=== PATIENT | male | born 1955 | race Caucasian/White ===

== ENCOUNTER 2023-01-18 08:35 | Outpatient (AMB) | payer MEDICARE, MEDICAID, SELFPAY ==
--- NOTE | 2023-01-18 08:45 | A.OFFVIS_ITS ---
Intake Vital Signs 01/18/23 08:47 Height 5 ft 10 in Weight 167 lb 8 oz BMI 24.0 BP 130/80 Blood Pressure Location Lt brachial Position Sitting Pulse 53 Pulse Source Pulse Oximeter Pulse Oximetry (%) 98 Oxygen Delivery Method Room Air Intake Visit Reasons: [id number] Intake Note: Patient is here for an Annual Wellness Visit. Patient has concerns to discuss with pcp Registered Dental Assistant Rda Required: No Identity Management Consultant: Identity Management Consultant offered & declined Accompanied by: Self / Same As Patient Allergies Ybemkbr-DVN-EvK Reductase Inhibitor [NKJPDOV-VVI-EIT REDUCTASE INHIBITOR] Allergy (Mild, Verified 01/18/23 08:47) Pain atorvastatin Allergy (Unknown, Verified 01/18/23 08:47) Abdominal Pain rosuvastatin [Crestor] Allergy (Unknown, Verified 01/18/23 08:47) Unknown Medication List - Last Reconciled 01/18/23 by Harrison Tucker MD aspirin 81 mg PO DAILY metoprolol succinate ER 25 mg PO DAILY omeprazole 20 mg PO DAILY HPI [id number] HPI Details HTN and GERD on rx; doing well [facility] Surgical History (Updated 01/18/23 @ 08:53 by VARGAS Zepeda) History of appendectomy History of ear surgery History of neck surgery Family History (Updated 01/18/23 @ 08:54 by VARGAS Zepeda) Other Substance use disorder Social History (Updated 01/18/23 @ 08:53 by VARGAS Zepeda) Alcohol intake: current Alcohol intake frequency: holidays/special occasions only Alcohol type: wine Patient Tobacco Use Status: Former Tobacco user Quit Date: 7 years ago Questionnaire Medicare Wellness Checkup [age] 65-70 What gender do you identify with?: male During the past 4 weeks, how much have you been bothered by emotional problems such as feeling anxious, depressed, irritable, sad or downhearted, and blue?: slightly During the past 4 weeks, has your physical & emotional health limited your social activities with family, friends, neighbors, or groups?: not at all During the past 4 weeks, how much bodily pain have you generally had?: very mild pain During the past 4 weeks, was someone available to help you if you needed & wanted help?: yes, a little During the past 4 weeks, what was the hardest physical activity you could do for at least 2 minutes?: moderate Can you get to places out of walking distance without help? (For eg., can you travel alone on buses, taxis or drive your car?): Yes Can you go shopping for groceries or clothes without someone's help?: Yes Can you prepare your own meals?: Yes Can you do your housework without help?: Yes Because of any health problems, do you need the help of another person with your personal care needs such as eating, bathing, dressing or getting around the ho use?: No Can you handle your own money without help?: Yes During the past 4 weeks, how would you rate your health in general?: good During the past 4 weeks how have things been going for you?: pretty well Are you having difficulties driving your car?: no Do you always fasten your seat belt when you are in a car?: yes, usually During past 4 weeks, have you been bothered by the following: never: Falling or dizzy when standing up, Sexual problems?, Trouble eating well?, Problems using the telephone? and Tiredness or fatigue? and seldom: Teeth or denture problems? Have you fallen 2 or more times in the past year?: No Are you afraid of falling?: No Are you a smoker?: no During the past 4 weeks, how many drinks of wine, beer, or other alcoholic beverages did you have?: 1 drink or less per week Do you exercise for about 20 minutes 3 or more times a week?: yes, some of the time Have you been given information to help with the following?: no: Hazards in your house that might hurt you? and no: Keeping track of your medications? How often do you have trouble taking medicines the way you have been told to take them?: I always take medicine as prescribed How confident are you that you can control & manage most of your health problems?: very confident What is your race?: White Mini Mental State Exam (MMSE) Orientation What is the (year) (season) (date) (day) (month)?: year, season, date, day and month Where are we (state) (county) (town or city) (hospital) (floor)?: state, county, town or city, hospital/clinic and floor Registration Name of 3 unrelated objects clearly and slowly, then ask patient to repeat all 3 of them. (1st repeat determines score. Make sure they can repeat all three): object 1, object 2 and object 3 Attention & Calculation (CHOOSE ONE) Ask pt to begin with 100 & count backward by 7. Stop after 5 repeats. If pt cannot ask them to spell the word WORLD backward.: 79 Recall Ask patient to repeat the 3 items from question #3.: object 1, object 2 and object 3 Score Score: 17 Activity of Daily Living Bathing - sponge bath, tub bath or shower: receives no assistance (gets in/out by self, if usual bathing means Dressing - getting clothes from closets & drawers, including inner/outer garments & fasteners.: gets clothes & gets completely dressed without help Toileting - going to the 'toilet room' for urine/bowel elimination & cleaning self/arranging clothes: goes to toilet room, cleans self, arranges clothes without help Transfer: moves in & out of bed and chair without help (may use support object) Continence: controls urination/bowel movements completely by self Feeding: feeds self without help Total Score: 0 Information obtained from: patient Using telephone: independent Traveling: independent Shopping: independent Preparing meals: independent Housework: independent Taking medicine: independent Managing money: independent PHQ-9 Over the last 2 weeks, how often have you been bothered by any of the following problems? 1. Little interest or pleasure in doing things: not at all 2. Feeling down, depressed, or hopeless: several days 3. Trouble falling or staying asleep, or sleeping too much: not at all 4. Feeling tired or having little energy: not at all 5. Poor appetite or overeating: not at all 6. Feeling bad about yourself - or that you are a failure or have let yourself or your family down: not at all 7. Trouble concentrating on things, such as reading the newspaper or watching television: not at all 8. Moving or speaking so slowly that other people could have noticed. Or the opposite - being so fidgety or restless that you have been moving around a lot more than usual: not at all 9. Thoughts that you would be better off or of hurting yourself in some way: not at all Total score: 1 Depression Screening Interpretation: Negative 36789 - PHQ-9 Billing: Yes Source: Developed by Drs. Mark Castaneda, Monica Morrissey, Wong Valverde and colleagues, with an educational john from [email or web address]. Thrive Questionnaire Date Thrive assessed: 01/18/23 I am a: Patient What is your living situation today?: I have a steady place to live Within the past 12 months, did the food you bought not last and you didn't have the money to get more?: Never true Within the past 12 months, did you worry whether your food would run out before you got money to buy more?: Never true Do you have trouble paying for medicines?: No Do you have trouble getting transportation to medical appointments?: No Do you have trouble paying your heating and electricity bill?: No Do you have trouble taking care of your child, family member or friend?: No Do you have trouble with day-to-day activities such as bathing, preparing meals, shopping, managing finances, etc.?: No Are you currently unemployed and looking for a job?: No Are you interested in more education?: No RODRIGUE-7 AMB Questionnaire RODRIGUE-7 Date RODRIGUE - 7 assessed: 01/18/23 Feeling nervous, anxious, or on edge: 0 = Not at all Not being able to stop or control worryin = Not at all Worrying too much about different things: 0 = Not at all Trouble relaxin = Not at all Being so restless that it is hard to sit still: 0 = Not at all Becoming easily annoyed or irritable: 0 = Not at all Feeling afraid as if something awful might happen: 0 = Not at all Total RODRIGUE-7 score (0-4 normal; 5-9 mild; 10-14 moderate; 15-21 severe): 0 Source: Developed by Drs. Mark Castaneda, Monica Morrissey, Wong Valverde and colleagues, with an educational john from [email or web address]. RODRIGUE-7 Assessment Billing RODRIGUE-7 Assessment Tool: RODRIGUE-7 Assessment 64602 Review of Systems Const Denies chills, Denies fatigue, Denies headache(s) and Denies weight loss Eyes Denies change in vision, Denies diplopia and Denies eye pain ENT Reports Normal hearing present, Denies vertigo, Denies dizziness, Denies headache(s) and Denies nasal discharge Card Denies chest pain, Denies rapid heart rate and Denies dyspnea on exertion Resp Denies chest congestion, Denies cough, Denies pain with cough and Denies dyspnea on exertion GI Denies abdominal pain, Denies hematochezia and Denies change in bowel habits Musc Denies myalgias, Denies arthralgias and Denies joint swelling Skin/Breast Denies lesions and Denies unusual bruising Neuro Reports Normal hearing present, Denies vertigo, Denies dizziness, Denies headache(s) and Denies focal weakness Endo Denies fatigue Physical Exam Vital Signs: Last Vital Signs Pulse 53 01/18/23 08:47 BP 130/80 01/18/23 08:47 Pulse Ox 98 01/18/23 08:47 Oxygen Delivery Method Room Air 01/18/23 08:47 BMI result Body Mass Index 24.0 Neuro Cranial nerves: Yes Normal hearing present Assessment & Plan Assessment & Plan (1) Encounter for initial annual wellness visit (AWV) in Medicare patient: Code(s): Z00.00 - Encounter for general adult medical examination without abnormal findings Plan: zenaida escalera (2) Hypertension: Code(s): I10 - Essential (primary) hypertension Plan: stable; same rx (3) Chronic GERD: Code(s): K21.9 - Gastro-esophageal reflux disease without esophagitis Plan: stable; same rx Orders: Orders Comprehensive Shepherd. 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
[2023-01-18 08:47] VITALS: BP 130/80; PULSE 53; O2SAT 98; BMI 24.0
== END 2023-01-18 09:29 | disposition home or self-care (01) ==
PROVIDERS: PCP Internal Medicine; Visit Provider Internal Medicine
DX: Z00.00 Encounter for general adult medical examination without abnormal findings (principal); I10 Essential (primary) hypertension; K21.9 Gastro-esophageal reflux disease without esophagitis
CPT/HCPCS: 1123F; G0438

== ENCOUNTER 2023-01-18 09:35 | Outpatient (REF) | payer MEDICARE, MEDICAID, SELFPAY ==
[2023-01-18 09:56] LABS: MANUAL DIFF FLAG NO
[2023-01-18 11:00] LABS: Basophils Absolute Auto 0.1 X10*3/uL (0.0-0.2); Basophils Percent Auto 1.2 % (0-2); Eosinophils Absolute Auto 0.3 X10*3/uL (0.0-0.4); Eosinophils Percent Auto 4.2 % (0-4); Hematocrit 42.4 % (42.0-52.0); Hemoglobin 14.1 g/dl (14.0-18.0); Imm Gran Abs Auto 0.01 X10*3/uL (0.00-0.03); Imm Gran Pct Auto 0.1 % (0.0-0.4); Lymphocytes Absolute Auto 1.9 X10*3/uL (1.2-4.9); Lymphocytes Percent Auto 28.9 % (20-40); Mean Corpuscular HGB Conc 33.3 g/dl (31.0-36.0); Mean Corpuscular Hemoglobin 29.5 pg (27.0-33.0); Mean Corpuscular Volume 88.7 fL (80.0-98.0); Monocytes Absolute Auto 0.6 X10*3/uL (0.1-1.2); Monocytes Percent Auto 8.7 % (2-11); Neutrophils Absolute Auto 3.8 x10*3/uL (2.0-8.3); Neutrophils Percent Auto 56.9 % (45-73); Platelet Count 273 X10*3/uL (160-400); Red Blood Count 4.78 X10*6/uL (4.60-5.80); Red Cell Distribution Width 12.4 % (11.0-16.0); White Blood Count 6.7 X10*3/uL (4.8-10.8)
[2023-01-18 11:12] LABS: Alanine Aminotransferase 17 U/L (0-40); Albumin Level 4.2 g/dL (3.5-5.0); Alkaline Phosphatase 51 U/L (39-117); Anion Gap 16 (12-20); Aspartate Amino Transferase 14 U/L (5-37); Blood Urea Nitrogen 18 mg/dL (9-16); Calcium 9.2 mg/dL (8.4-10.2); Carbon Dioxide 22 mmol/L (22-29); Chloride 111 mmol/L (96-108); Cholesterol 167 mg/dL; Estimated Glomerular Filt Rate > 60; Glucose Fasting 114 mg/dL (60-99); HDL Cholesterol 47 mg/dL; LDL Cholesterol Calculated 104 mg/dl; Sodium 145 mmol/L (135-145); Triglycerides 80 mg/dL
[2023-01-18 11:17] LABS: Thyroid Stimulating Hormone 1.81 uIU/mL (0.32-4.0)
[2023-01-18 11:19] LABS: Prostate Specific Antigen Scr 0.83 ng/mL (<0.05-4.0)
== END 2023-01-18 09:36 | disposition home or self-care (01) ==
LOC: HO.LAB 09:35
PROVIDERS: PCP Internal Medicine; Visit Provider Internal Medicine
DX: Z00.00 Encounter for general adult medical examination without abnormal findings (principal); Z12.5 Encounter for screening for malignant neoplasm of prostate; N28.9 Disorder of kidney and ureter, unspecified; E03.9 Hypothyroidism, unspecified; E78.5 Hyperlipidemia, unspecified; D64.9 Anemia, unspecified
CPT/HCPCS: 36415; 80053; 80061; 84153; 84443; 85025

== ENCOUNTER 2023-07-04 10:38 | Outpatient (AMB) | payer MEDICARE, MEDICAID, SELFPAY ==
[2023-07-04 10:42] VITALS: BP 102/66; PULSE 53; O2SAT 98; BMI 24.2
--- NOTE | 2023-07-04 10:42 | MHC.PC.OV ---
Vital Signs 07/04/23 10:42 Height 5 ft 10 in Weight 168 lb 8 oz BMI 24.2 BP 102/66 Blood Pressure Location Lt brachial Position Sitting Pulse 53 Pulse Source Pulse Oximeter Pulse Oximetry (%) 98 Oxygen Delivery Method Room Air Intake Visit Reasons: pre-op cataract suergery Balin eye [employer] Systems Auditor Required: No Road Design Draftsperson: Not Required per policy Accompanied by: Self / Same As Patient Allergies Zljhmco-DSN-AwG Reductase Inhibitor [EWXVQKZ-NYN-AYS REDUCTASE INHIBITOR] Allergy (Mild, Verified 07/04/23 10:42) Pain atorvastatin Allergy (Unknown, Verified 07/04/23 10:42) Abdominal Pain rosuvastatin [Crestor] Allergy (Unknown, Verified 07/04/23 10:42) Unknown Medication List - Last Reconciled 07/04/23 by Harrison Tucker MD alirocumab (Praluent Pen) mg subcut Q2W aspirin 81 mg PO DAILY metoprolol succinate ER 25 mg PO DAILY omeprazole 20 mg PO DAILY Tobacco use date assessed: 07/04/23 Fall risk assessment: No Falls in past year Last assessed Fall Risk: 07/04/23 Dental Screening Dental Screen Date: 07/04/23 Did you have a dental visit in the last 12 months?: No Did you have a dental problem in the last 6 months where you did not have access to dental care?: No Was dental information given to patient?: Patient has dentist HPI pre-op cataract suergery Balin eye NOABEL HPI Details Having bilat cataracts repaired; stable CAD w/o chest pain in over a year [facility] Surgical History (Updated 01/18/23 @ 08:53 by VARGAS Zepeda) History of ear surgery History of neck surgery History of appendectomy Family History Other Substance use disorder Social History Housing: Condominium Alcohol intake: current Alcohol intake frequency: holidays/special occasions only Alcohol type: wine Patient Tobacco Use Status: Former Tobacco user Quit Date: 7 years ago e-Cigarette/Vaping Use: Never Used Second Hand Smoke Exposure: No service: No Current occupational status: employed Cognitive needs: No Hearing needs: No Vision needs: Yes Questionnaire PHQ-9 Over the last 2 weeks, how often have you been bothered by any of the following problems? 1. Little interest or pleasure in doing things: not at all 2. Feeling down, depressed, or hopeless: several days 3. Trouble falling or staying asleep, or sleeping too much: not at all 4. Feeling tired or having little energy: not at all 5. Poor appetite or overeating: not at all 6. Feeling bad about yourself - or that you are a failure or have let yourself or your family down: not at all 7. Trouble concentrating on things, such as reading the newspaper or watching television: not at all 8. Moving or speaking so slowly that other people could have noticed. Or the opposite - being so fidgety or restless that you have been moving around a lot more than usual: not at all 9. Thoughts that you would be better off or of hurting yourself in some way: not at all Total score: 1 Depression Screening Interpretation: Negative Depression Screening Done: Yes 88321 - PHQ-9 Billing: Yes Source: Developed by Drs. Mark Castaneda, Monica Morrissey, Wong Valverde and colleagues, with an educational john from [employer]. Thrive Questionnaire Date Thrive assessed: 07/04/23 I am a: Patient What is your living situation today?: I have a steady place to live Within the past 12 months, did the food you bought not last and you didn't have the money to get more?: Never true Within the past 12 months, did you worry whether your food would run out before you got money to buy more?: Never true Do you have trouble paying for medicines?: No Do you have trouble getting transportation to medical appointments?: No Do you have trouble paying your heating and electricity bill?: No Do you have trouble taking care of your child, family member or friend?: No Do you have trouble with day-to-day activities such as bathing, preparing meals, shopping, managing finances, etc.?: No Are you currently unemployed and looking for a job?: No Are you interested in more education?: No Please select the resources that you would like help with: None AUDIT C Alcohol Use Questionnaire (AUDIT-C) 1. How often do you have a drink containing alcohol?: Never Total Score: 0 RODRIGUE-7 AMB Questionnaire RODRIGUE-7 Date RODRIGUE - 7 assessed: 07/04/23 Feeling nervous, anxious, or on edge: 0 = Not at all Not being able to stop or control worryin = Not at all Worrying too much about different things: 0 = Not at all Trouble relaxin = Not at all Being so restless that it is hard to sit still: 0 = Not at all Becoming easily annoyed or irritable: 0 = Not at all Feeling afraid as if something awful might happen: 0 = Not at all Total RODRIGUE-7 score (0-4 normal; 5-9 mild; 10-14 moderate; 15-21 severe): 0 Source: Developed by Drs. Mark Castaneda, Monica Morrissey, Wong Valverde and colleagues, with an educational john from [employer]. Review of Systems Const Denies chills, Denies fatigue, Denies headache(s) and Denies weight loss Eyes Denies change in vision, Denies diplopia and Denies eye pain ENT Denies vertigo, Denies dizziness, Denies headache(s) and Denies nasal discharge Card Denies chest pain, Denies rapid heart rate and Denies dyspnea on exertion Resp Denies chest congestion, Denies cough, Denies pain with cough and Denies dyspnea on exertion GI Denies abdominal pain, Denies hematochezia and Denies change in bowel habits Musc Denies myalgias, Denies arthralgias and Denies joint swelling Skin/Breast Denies lesions and Denies unusual bruising Neuro Denies vertigo, Denies dizziness, Denies headache(s) and Denies focal weakness Endo Denies fatigue Physical exam (Primary Care) Vital Signs: Last Vital Signs Pulse 53 07/04/23 10:42 BP 102/66 07/04/23 10:42 Pulse Ox 98 07/04/23 10:42 Oxygen Delivery Method Room Air 07/04/23 10:42 BMI result Body Mass Index 24.2 Tobacco/Smoking Status: Tobacco use Status Tobacco use date assessed 07/04/23 07/04/23 10:44 Patient Tobacco Use Status Former Tobacco user 07/04/23 10:44 PHQ-9: PHQ-9 Score PHQ-9: Total score 1 07/04/23 10:44 Depression Screening Interpretation: Negative Thrive Assessment: Date of Thrive Assessment Date Thrive assessed 07/04/23 07/04/23 10:44 Const General: cooperative, healthy appearing and no acute distress Orientation/consciousness: oriented to person, oriented to place and oriented to time HENMT Head: Yes normal to inspection, Yes normocephalic and Yes atraumatic Mouth: Normal oral and palatal mucosa present and tongue normal Throat: Yes posterior oropharynx normal and Yes uvula midline Eyes General: appearance normal, both eyes and all related structures Neck Neck: Yes normal visual inspection, Yes full ROM and Yes no lymphadenopathy Thyroid: Thyroid normal Carotids: normal carotid upstroke Chest Chest palpation & inspection: normal inspection of the chest Resp Effort & Inspection: normal respiratory effort and able to speak in complete sentences Auscultation: clear to auscultation bilaterally Cardio Jugular venous distension: no JVD Palpation: normal PMI Rate: regular rate Rhythm: regular rhythm Heart sounds: S1 normal heart sound present and S2 normal heart sound present GI Inspection: Yes normal to inspection Palpation (GI): Soft to palpation and No hepatosplenomegaly present Auscultation: normal bowel sounds General: Yes no CVA tenderness Back/Spine/Pelvis Back: no CVA tenderness Skin General skin exam: no rashes or lesions noted Neuro General: oriented to person, oriented to place and oriented to time Extrem General: Yes normal to inspection and Yes full ROM Assessment and Plan Assessment & Plan (1) Preop exam for internal medicine: Code(s): Z01.818 - Encounter for other preprocedural examination Plan: low risk for cardiovascular complications; cleared for surgery (2) Coronary artery disease: Code(s): I25.10 - Atherosclerotic heart disease of lime coronary artery without angina pectoris Plan: stable Coding Level of Care Code Est Pt Level 4 (09424) Diagnoses Preop exam for internal medicine Z01.818 Coronary artery disease I25.10
== END 2023-07-04 11:02 | disposition home or self-care (01) ==
PROVIDERS: PCP Internal Medicine; Visit Provider Internal Medicine
DX: Z01.818 Encounter for other preprocedural examination (principal); I25.10 Atherosclerotic heart disease of native coronary artery without angina pectoris
CPT/HCPCS: 99214

== ENCOUNTER 2024-01-23 09:17 | Outpatient (REF) | payer MEDICARE, MEDICAID, SELFPAY ==
[2024-01-23 09:45] LABS: MANUAL DIFF FLAG NO
[2024-01-23 10:05] LABS: Basophils Absolute Auto 0.1 X10*3/uL (0.0-0.2); Basophils Percent Auto 1.2 % (0-2); Eosinophils Absolute Auto 0.3 X10*3/uL (0.0-0.4); Eosinophils Percent Auto 4.5 % (0-4); Hematocrit 42.2 % (42.0-52.0); Hemoglobin 14.5 g/dl (14.0-18.0); Imm Gran Abs Auto 0.04 X10*3/uL (0.00-0.03); Imm Gran Pct Auto 0.6 % (0.0-0.4); Lymphocytes Absolute Auto 1.9 X10*3/uL (1.2-4.9); Lymphocytes Percent Auto 28.1 % (20-40); Mean Corpuscular HGB Conc 34.4 g/dl (31.0-36.0); Mean Corpuscular Volume 87.2 fL (80.0-98.0); Mean Platelet Volume 9.5 fL (9.4-12.4); Monocytes Absolute Auto 0.7 X10*3/uL (0.1-1.2); Monocytes Percent Auto 10.6 % (2-11); Neutrophils Absolute Auto 3.8 x10*3/uL (2.0-8.3); Platelet Count 265 X10*3/uL (160-400); Red Blood Count 4.84 X10*6/uL (4.60-5.80); Red Cell Distribution Width 12.7 % (11.0-16.0); White Blood Count 6.9 X10*3/uL (4.8-10.8)
[2024-01-23 10:44] LABS: Alanine Aminotransferase 21 U/L (0-40); Albumin Level 4.4 g/dL (3.5-5.0); Alkaline Phosphatase 52 U/L (39-117); Anion Gap 12 (12-20); Aspartate Amino Transferase 15 U/L (5-37); Bilirubin Total 0.7 mg/dL (0.0-1.0); Blood Urea Nitrogen 18 mg/dL (9-16); Calcium 9.2 mg/dL (8.4-10.2); Carbon Dioxide 28 mmol/L (22-29); Chloride 107 mmol/L (96-108); Cholesterol 203 mg/dL (<200); Estimated Glomerular Filt Rate > 60; Glucose Fasting 116 mg/dL (60-99); HDL Cholesterol 52 mg/dL (>40); LDL Cholesterol Calculated 125 mg/dL (<100); Potassium 4.7 mmol/L (3.3-5.1); Sodium 142 mmol/L (135-145); Total Protein 7.3 g/dL (6.5-8.0); Triglycerides 130 mg/dL (<150)
[2024-01-23 11:05] LABS: Thyroid Stimulating Hormone 1.75 uIU/mL (0.32-4.0)
== END 2024-01-23 09:18 | disposition home or self-care (01) ==
LOC: HO.LAB 09:17
PROVIDERS: PCP Internal Medicine; Visit Provider Internal Medicine
DX: Z13.220 Encounter for screening for lipoid disorders (principal); Z13.29 Encounter for screening for other suspected endocrine disorder; Z13.0 Encounter for screening for diseases of the blood and blood-forming organs and certain disorders involving the immune mechanism; Z13.9 Encounter for screening, unspecified
CPT/HCPCS: 36415; 80053; 80061; 84443; 85025

== ENCOUNTER 2024-05-11 13:04 | Outpatient (AMB) | payer MEDICARE, MEDICAID, SELFPAY ==
--- NOTE | 2024-05-11 13:13 | A.OFFPC_ITS ---
Vital Signs 05/11/24 13:14 Height 5 ft 10 in Weight 174 lb 8 oz BMI 25.0 BP 140/90 H Blood Pressure Location Lt brachial Position Sitting Pulse 67 Pulse Source Pulse Oximeter Pulse Oximetry (%) 98 Oxygen Delivery Method Room Air Intake Visit Reasons: Coughing up blood clogs Intake Note: Patient is here to follow up on Coughing up blood clots. Receptionist Clerk Required: No Melting Operator: Not Required per policy Accompanied by: Self / Same As Patient Allergies W[place]ivhu-KDD-HgQ Reductase Inhibitor [NGKCQSQ-QRC-NKI REDUCTASE INHIBITOR] Allergy (Mild, Verified 05/11/24 13:14) Pain atorvastatin Allergy (Unknown, Verified 05/11/24 13:14) Abdominal Pain rosuvastatin [Crestor] Allergy (Unknown, Verified 05/11/24 13:14) Unknown Medication List - Last Reconciled 05/11/24 by Harrison Tucker MD aspirin 81 mg PO DAILY metoprolol succinate ER 25 mg PO DAILY omeprazole 20 mg PO DAILY Tobacco use date assessed: 05/11/24 Fall risk assessment: No Falls in past year Last assessed Fall Risk: 05/11/24 Dental Screening Dental Screen Date: 07/04/23 HPI Coughing up blood clogs HPI Details hemoptysis for a week PFSH Surgical History History of cataract surgery History of ear surgery History of neck surgery History of appendectomy Family History Other Substance use disorder Social History Housing: Condominium Alcohol intake: current Alcohol intake frequency: holidays/special occasions only Alcohol type: wine Patient Tobacco Use Status: Former Tobacco user e-Cigarette/Vaping Use: Never Used Second Hand Smoke Exposure: No service: No Current occupational status: employed Cognitive needs: No Hearing needs: No Vision needs: Yes Questionnaire Thrive Questionnaire Date Thrive assessed: 07/04/23 AUDIT C Alcohol Use Questionnaire (AUDIT-C) 2. How many drinks containing alcohol do you have on a typical day when you are drinking?: 1 or 2 3. How often do you have six or more drinks on one occasion?: Less than monthly Total Score: 1 RODRIGUE-7 AMB Questionnaire RODRIGUE-7 Date RODRIGUE - 7 assessed: 07/04/23 Source: Developed by Drs. Mark Castaneda, Monica Morrissey, Wong Valverde and colleagues, with an educational john from [employer]. Review of Systems Const Denies chills, Denies headache(s) and Denies weight loss ENT Denies headache(s) Card Denies chest pain, Denies syncope, Denies irregular heart rhythm and Denies dyspnea Resp Denies chest congestion, Denies cough and Denies dyspnea GI Denies abdominal pain, Denies change in stool character, Denies nausea and Denies vomiting Musc Denies deformity and Denies joint swelling Neuro Denies syncope and Denies headache(s) Physical exam (Primary Care) Vital Signs: Last Vital Signs Pulse 67 05/11/24 13:14 BP 140/90 H 05/11/24 13:14 Pulse Ox 98 05/11/24 13:14 Oxygen Delivery Method Room Air 05/11/24 13:14 BMI result Body Mass Index 25.0 Tobacco/Smoking Status: Tobacco use Status Tobacco use date assessed 05/11/24 05/11/24 13:18 Patient Tobacco Use Status Former Tobacco user 05/11/24 13:18 e-Cigarette/Vaping Use Never Used 05/11/24 13:18 Thrive Assessment: Date of Thrive Assessment Date Thrive assessed 07/04/23 05/11/24 13:18 Const General: cooperative, comfortable, no acute distress and alert Neck Neck: Yes no lymphadenopathy Thyroid: Thyroid normal Resp Effort & Inspection: normal respiratory effort Auscultation: clear to auscultation bilaterally Percussion: percussion normal Cardio Jugular venous distension: no JVD Palpation: normal PMI Rate: regular rate Rhythm: regular rhythm Heart sounds: S1 normal heart sound present and S2 normal heart sound present GI Inspection: Yes normal to inspection Palpation (GI): No hepatosplenomegaly present Skin General skin exam: no rashes or lesions noted Extrem General: Yes no clubbing, cyanosis or edema Coding Level of Care Code Est Pt Level 3 (42289) Diagnoses Hemoptysis R04.2 Assessment & Plan Assessment & Plan (1) Hemoptysis: Code(s): R04.2 - Hemoptysis Category: Medical Plan: xr and rx Orders: Orders XR chest 2V Today R04.2 - Hemoptysis Medications: New azithromycin take 500 mg today (day 1), then 250 mg for 4 days (days 2-5) PO 6 tabs 0RF sildenafil (Viagra) administer 30 minutes to 4 hours before activity 50 mg PO DAILY PRN 10 tabs 3RF sexual activity
[2024-05-11 13:14] VITALS: BP 140/90; PULSE 67; O2SAT 98; BMI 25.0
== END 2024-05-11 13:30 | disposition home or self-care (01) ==
PROVIDERS: PCP Internal Medicine; Visit Provider Internal Medicine
DX: R04.2 Hemoptysis (principal)

== ENCOUNTER 2024-05-11 13:04 | Outpatient (REF) | payer MEDICARE, MEDICAID, SELFPAY ==
--- NOTE | ~2024-05-11 | XR_ITS ---
EXAMINATION: XR CHEST CLINICAL INFORMATION: R04.2 - Hemoptysis COMPARISON: None available. TECHNIQUE: 2 views of the chest were obtained. FINDINGS: No significant abnormality is noted involving the heart, lungs, mediastinum, bony thorax or soft tissues. Postsurgical changes are noted in the lower cervical spine. XR/XR chest 2V IMPRESSION: No acute cardiopulmonary disease. Electronically signed by: Fabiano Ribera MD 05/13/2024 12:05 PM [facility]
== END 2024-05-11 13:05 | disposition home or self-care (01) ==
LOC: HO.XRAY 13:04
PROVIDERS: PCP Internal Medicine; Visit Provider Internal Medicine
DX: R04.2 Hemoptysis (principal)
CPT/HCPCS: 71046; 99212

== ENCOUNTER 2024-06-05 07:40 | Outpatient (REF) | payer MEDICARE, MEDICAID, SELFPAY ==
--- NOTE | ~2024-06-05 | US_ITS ---
EXAMINATION: US RETROPERITONEAL LIMITED (AORTA) CLINICAL INFORMATION: Abdominal aortic aneurysm last imaged in 2016. COMPARISON: 09/02/2015 ultrasound abdominal aorta. TECHNIQUE: Cash-scale, color Doppler and spectral Doppler evaluation of the abdominal aorta. Limited visualization of the most superior and inferior thoracic vertebral bodies on the lateral view due to overlying bone and soft tissue structures. FINDINGS: Atherosclerosis. The measurements of the aorta in maximum AP and transverse dimensions respectively are as follows: Proximal: 2.4 x 2.5 cm, previously 2.8 x 2.7 cm. Mid: 2.6 x 2.8 cm, previously 2.8 x 2.9 cm. Distal: 6.4 x 6.2 cm, previously 3.3 x 3.7 cm. PSV: 41.8 cm/s. The measurements of the common iliac arteries in maximum dimensions are as follows: Right: AP: 0.7 cm. TRV: 0.8 cm. Left: AP: 0.8 cm. TRV: 0.9 cm. Aneurysm of the distal abdominal aorta measures 6.4 cm AP x 6.2 cm transverse with lumen measuring 2.6 cm AP x 2.6 cm transverse. Thick intraluminal thrombus. Distal abdominal aorta measured 3.3 x 3.7 cm on aortic ultrasound of 09/02/2015. US/US abdominal aortic aneurysm IMPRESSION: Aneurysm of the distal abdominal aorta measures 6.4 cm AP x 6.2 cm transverse with lumen measuring 2.6 cm AP x 2.6 cm transverse. Thick intraluminal thrombus. Distal abdominal aorta measured 3.3 x 3.7 cm on aortic ultrasound of 09/02/2015.. This study was presented today, June 05, 2024, for interpretation. Stat results provided at this time as requested by referring provider. Electronically signed by: Payton Potter MD 06/05/2024 10:15 AM EST
== END 2024-06-05 07:41 | disposition home or self-care (01) ==
LOC: HO.US 07:40
PROVIDERS: PCP Internal Medicine; Visit Provider Internal Medicine
DX: I71.40 Abdominal aortic aneurysm, without rupture, unspecified (principal)
CPT/HCPCS: 76706

== ENCOUNTER 2024-08-29 10:09 | Outpatient (REF) | payer MEDICARE, MEDICAID, SELFPAY ==
--- NOTE | ~2024-08-29 | CT_ITS ---
EXAMINATION: CT CHEST WITH CONTRAST CLINICAL INFORMATION: Lung mass. COMPARISON: No prior CT. Correlation made with chest radiograph 05/11/2024. TECHNIQUE: Multidetector volumetric CT imaging of the chest was obtained after the administration of 50 mL of Omnipaque 350 intravenous contrast without immediate adverse reactions. Axial MIP volume rendering provided. Sagittal and coronal reformatted images were obtained. This CT examination was performed using dose optimization techniques as appropriate, variously including the following: *Automated exposure control *Adjustment of mA and/or kV according to patient size (this includes techniques or standardized protocols for targeted exams where dose is matched to indication/reason for exam; i.e. extremities or head) *Use of iterative reconstruction technique FINDINGS: NODULES: -There is a large lobular soft tissue mass in the left lower lobe ventrally measuring approximately 5.5 x 6.6 x 4.1 cm (AP, TRV, CC). This measures Hounsfield units of approximately 28, and extends to abut the inferior major fissure. There are surrounding groundglass parenchymal changes. -There is a 1.2 x 0.4 x 0.2 cm groundglass nodule abutting the minor fissure within the anteroinferior right upper lobe (series 4, image 93). This may be an intrapulmonary lymph node but is nonspecific. -Within the right middle lobe laterally there is a 9 mm pure groundglass nodule (series 4, image 97). -There are no additional pulmonary nodules identified. LUNGS: -There is moderate centrilobular and paraseptal emphysema, with upper lobe predominance. -There is biapical scarring with associated apical bulla. -There is no consolidative opacity. -There is minimal diffuse bronchiectasis without bronchial wall thickening. -There is no pleural effusion or pneumothorax. MEDIASTINUM: -There is a 0.9 cm right thyroid nodule. No follow-up recommended. Thyroid otherwise normal. -There is no mediastinal lymphadenopathy or mass. -There is a left inferior hilar lymph node present measuring 1.8 x 1.7 cm (series 3, image 33). -There is a right mid hilar lymph node measuring 1.2 cm in short axis. -Normal aorta and main pulmonary artery. -Heart size normal. No pericardial effusion There are moderate to heavy coronary calcifications. -Normal esophagus and GE junction. PLEURA: There is no pleural effusion. No pleural mass or thickening. AXILLA/CHEST WALL: No lymphadenopathy. UPPER ABDOMEN: -There is diffuse fatty infiltration of the liver. There is an enhancing peripheral segment 8 nodule measuring 1.5 cm (series 3, image 61). There are small foci of fatty sparing. -There are cholesterol gallstones within the gallbladder. -There is a right adrenal nodule measuring 1.8 x 1.9 cm (series 3, image 68). This is indeterminate. -There is a second segment small duodenal diverticulum. OSSEOUS STRUCTURES: -No suspicious lytic or blastic bone lesion. CT/CT chest w IV con IMPRESSION: 1. Moderate paraseptal and centrilobular emphysema with upper lobe predominance. 2. There is a large lobular soft tissue mass in the left lower lobe ventrally measuring approximately 5.5 x 6.6 x 4.1 cm. This is surrounded by a halo of groundglass changes. Primary or secondary neoplasm suspected. 3. There is a groundglass nodule abutting the minor fissure within the anteroinferior right upper lobe measuring 1.2 x 0.4 x 0.2 cm. This may be an intrapulmonary lymph node but is nonspecific. 4. There are biapical bulla and parenchymal scarring. 5. There is a left inferior hilar lymph node measuring up to 1.8 cm. This is likely metastatic. 6. There is a right mid hilar lymph node measuring up to 1.2 cm short axis. 7. Diffuse fatty infiltration of the liver. Enhancing 1.5 cm segment 8 nodule. This is nonspecific. 8. There is a right adrenal nodule measuring 1.8 x 1.9 cm, indeterminate. 9. Additional ancillary findings as discussed in the body of the report. Electronically signed by: Stephan Darling MD 08/29/2024 11:51 AM EDT
[2024-08-29] MEDS: iohexoL 350 MG/ML 100 ML INFUS..BTL IV (11:10)
--- OUTSIDE RECORDS SUMMARY | 2024-08-29 11:36 | XMS_ITS ---
Author Organization [facility] Address [address] [place] [phone] Care Team Providers Care Renal Nurse Name Role Phone Harrison Tucker MD Primary Care Provider Unavaila Mark Gabriel Unavailable [phone] Encounters Encounter Location Date Provider Diagnosis [facility] [address] [place] [phone] 08/26/2024 Mark Combs Plan Of Treatment No Information Progress Notes * LEONID DON SDOB:1955 (69 yo M)Acc No.[id number]:08/26/2024 Patient:?LEONID DON :1955???Age:69 Y???Sex:Male Address:[address] [place], [address] * * Date:?
--- OUTSIDE RECORDS SUMMARY | 2024-08-29 11:36 | XMS_ITS ---
Author Organization [facility] Address [address] [place] [phone] Care Team Providers Care Staff Radiation Therapist Name Role Phone Harrison Tucker MD Primary Care Provider Maria Luisaa Mark Gabriel Unavailable [phone] Encounters Encounter Location Date Provider Diagnosis [facility] [address] [place] [phone] 06/05/2024 Mark Combs Plan Of Treatment No Information Progress Notes * LEONID DON SDOB:1955 (69 yo M)Acc No.[id number]:06/05/2024 Patient:?LEONID DON :1955???Age:69 Y???Sex:Male Address:[address] [place], [address] * true * Date:? Generated for Printi ng/Juan Pablo/eTransmitting on:?08/29/2024 11:36 AM EDT
--- OUTSIDE RECORDS SUMMARY | 2024-08-29 11:36 | XMS_ITS ---
Author Organization [facility] Address [address] [place] [phone] Care Team Providers Care Meat Service Team Member Name Role Phone Caitlin AUSTIN, Harrison Primary Care Provider Unavaila Mark Gabriel Unavailable [phone] REASON FOR VISIT screening,hx polyps, gerd Encounters Encounter Location Date Provider Diagnosis [facility] [address] [place] [phone] 06/06/2024 Mark Combs Plan Of Treatment No Information Progress Notes * LEONID DON SDOB:1955 (69 yo M)Acc No.[id number]:06/06/2024 EGD and COL/MAC Patient:?LEONID DON Provider:?Mark Combs MD :1955???Age:69 Y???Sex:Male Emeterio e:06/06/2024 Address:[address] , [place] Pcp:Harrison Tucker MD Subjective: * Chief Complaints: * ???1. Screening,hx polyps, g erd. * Medical History:? Objective: * Vitals:? Assessment: Plan: * Treatment: * * The named appointment provid er may or may not be the originator of this progress note, and it is not deemed complete until electronically signed by the appointment provider. Sign off status: Pending * Provider:?Mark Combs MD Date:? 024 Generated for Printi ng/Faxing/eTransmitting on:?08/29/2024 11:36 AM EDT
--- OUTSIDE RECORDS SUMMARY | 2024-08-29 11:37 | XMS_ITS | Patient Health Record ---
Author Organization [facility] Address [address] [place] [address] Care Team Providers Care Marine Drafter Name Role Phone Harrison Tucker MD Primary Care Provider Mark Vinson Unavailable [phone] Allergies Allergen (clinical drug ingredient) Drug/Non Drug Allergy documented on EMR Reaction Allergy Type Onset Date Status atorvastatin Atorvastatin Calcium muscle pain Drug Allergy Active Results Component Value Reference Range Notes US abdominal aortic aneurysm (Not yet reviewed by provider) Interpretation: Performing Lab: Notes/Report: [address] [address] Ultrasound Report Signed Patient: Juan Arango MR#: [id number] : 1955 Acct:[id number] Age/Sex: 69 / M ADM Date: 06/05/24 Loc: . Attending Dr: Mark Combs MD Ordering Physician: Mark Combs MD Date of Service: 06/05/24 Procedure(s): US abdominal aortic aneurysm Accession Number(s): [id number] cc: Harrison Tucker MD; Mark Combs MD EXAMINATION: US RETROPERITONEAL LIMITED (AORTA) CLINICAL INFORMATION: Abdominal aortic aneurysm last imaged in 2015. COMPARISON: 09/02/2015 ultrasound abdominal aorta. TECHNIQUE: Cash-scale, color Doppler and spectral Doppler evaluation of the abdominal aorta. Limited visualization of the most superior and inferior thoracic vertebral bodies on the lateral view due to overlying bone and soft tissue structures. FINDINGS: Atherosclerosis. The measurements of the aorta in maximum AP and transverse dimensions respectively are as follows: Proximal: 2.4 x 2.5 cm, previously 2.8 x 2.7 cm. Mid: 2.6 x 2.8 cm, previously 2.8 x 2.9 cm. Distal: 6.4 x 6.2 cm, previously 3.3 x 3.7 cm. PSV: 41.8 cm/s. The measurements of the common iliac arteries in maximum dimensions are as follows: Right: AP: 0.7 cm. TRV: 0.8 cm. Left: AP: 0.8 cm. TRV: 0.9 cm. Aneurysm of the distal abdominal aorta measures 6.4 cm AP x 6.2 cm transverse with lumen measuring 2.6 cm AP x 2.6 cm transverse. Thick intraluminal thrombus. Distal abdominal aorta measured 3.3 x 3.7 cm on aortic ultrasound of 09/02/2015. US/US abdominal aortic aneurysm IMPRESSION: Aneurysm of the distal abdominal aorta measures 6.4 cm AP x 6.2 cm transverse with lumen measuring 2.6 cm AP x 2.6 cm transverse. Thick intraluminal thrombus. Distal abdominal aorta measured 3.3 x 3.7 cm on aortic ultrasound of 09/02/2015.. This study was presented today, June 05, 2024, for interpretation. Stat results provided at this time as requested by referring provider. Electronically signed by: Payton Potter MD 06/05/2024 10:15 AM [facility] Dictated By: Payton Potter MD Signed By: <Electronically signed by Payton Potter MD in OV> 06/05/24 1015 DD/ 0820 TD/TT: 06/05/24 0846 [employer]r: [place] [address] Ultrasound Report Signed Patient: Juan Arango MR#: [id number] : 1955 Acct:[id number] Age/Sex: 69 / M ADM Date: 06/05/24 Loc: HO.US Attending Dr: Mark Combs MD Ordering Physician: Mark Combs MD Date of Service: 06/05/24 Procedure(s): US abd ominal aortic aneurysm Accession Number(s): [id number] cc: Harrison Tucker MD; Mark Combs MD EXAMINATION: US RETROPERITONEAL L IMITED (AORTA) CLINICAL INFORMATION: Abdominal aortic ane urysm last imaged in 2015. COMPARISON: 09/02/2015 ultrasoun d abdominal aorta. TECHNIQUE: Cash-scale, color Do ppler and spectral Doppler evaluation of the abdominal aorta. Kaye ited visualization of the most superior and inferior thoracic ve rtebral bodies on the lateral view due to overlying bone and soft tissue structures. FINDINGS: Atherosclerosis. The measurements of the aorta in maximum AP and transverse dimension s respectively are as follows: Proximal: 2.4 x 2.5 cm, previously 2.8 x 2.7 cm. Mid: 2.6 x 2.8 cm, p reviously 2.8 x 2.9 cm. Distal: 6.4 x 6.2 cm , previously 3.3 x 3.7 cm. PSV: 41.8 cm/s. The measurements of the common iliac arteries in maximum dimensions are as follows: Right: AP: 0.7 cm. TRV: 0.8 cm. Left: AP: 0.8 cm. TRV: 0.9 cm. Aneurysm of the dist al abdominal aorta measures 6.4 cm AP x 6.2 cm transverse with lume n measuring 2.6 cm AP x 2.6 cm transverse. Thick intraluminal thrombu s. Distal abdominal aorta measured 3.3 x 3.7 cm on aortic ultrasound of 09/02/2015. U S/US abdominal aortic aneurysm IMPRESSION: Aneurysm of the dist al abdominal aorta measures 6.4 cm AP x 6.2 cm transverse with lume n measuring 2.6 cm AP x 2.6 cm transverse. Thick intraluminal thrombu s. Distal abdominal aorta measured 3.3 x 3.7 cm on aortic ultrasound of 09/02/2015.. This study was prese nted today, June 05, 2024, for interpretation. Stat results provide d at this time as requested by referring provider. Electronically rowdy d by: Payton Potter MD 06/05/2024 10:15 AM [facility] Dictated By: Payton Potter MD Signed By: <Wes teresa signed by Payton Potter MD in OV> 06/05/24 1015 DD/ 0820 TD/TT: 06/05/24 0846 [employer] G[employer]r: Reason For Referral No Information Medications Medication SIG (Take, Route, Frequency, Duration) Notes Start Date End Date Status Omeprazole 20 MG TAKE 1 CAPSULE BY [facility] EVERY MORNING for 30 Active Aspir-81 81 MG 1 tablet Orally Once a day Active Metoprolol & Diet Manage Prod 25 mg 1 tablet orally once a day A ctive Immunizations Vaccine Route Administration Date Status Comme nts Influenza Unknown 07/13/2018 Refused Social History Alcohol Screen Question Answer Notes Did you have a drink containing alcohol in the p ast year? No Points 0 Interpretation Negative Section Notes: Stopped smoking 08/2015; no s ig alcohol Stopped smoking 08/2015; no s ig alcohol Stopped smoking 08/2015; no s ig alcohol Stopped smoking 08/2015; no s ig alcohol Stopped smoking 08/2015; no s ig alcohol Problems Problem Type SNOMED Code ICD Code Onset Dates Problem Status W/U Status Risk Notes Problem 110579500 Encounter for screening for malignant neoplasm of colon (Z12.11) Active confirmed Problem History of adenomatous polyp of colon (917815113) History of adenomatous polyp of colon (Z86.010) Active confirmed Problem Diarrhea (85684030) Diarrhea (R19.7) Active con firmed Problem Screening for malignant neoplasm of rectum (778811248) Encounter for screening for malignant neoplasm of rectum (Z12.12) Active confirmed Problem 904124504 Gallstones (K80.20) Active confirmed Problem 065440103 Long-term use of aspirin therapy (Z79.82) Active confirmed Problem 918682473 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) Active confirmed Problem Gastroesophageal reflux disease (121475612) GERD without esophagitis (K21.9) Active confirmed Problem 0132823 Chronic gastriti s without bleeding, unspecified gastritis type (K29.50) Active confirmed Problem 22201132 Globus sensation (F45.8) Active confirmed Problem 96596542 Globus pharyngeu s (F45.8) Active confirmed Problem Abdominal aortic aneurysm without rupture (disorder) (42672541) Abdominal aortic aneurysm, without rupture, unspecified (I71.40) Active confirmed Problem Gastroesophageal reflux disease (disorder) (498762254) Chronic GERD (K21.9) Active confirmed Vital Signs Blood pressure diastolic 00 mm Hg 02/23/2024 Height 70 in 02/23/2024 Blood pressure systolic 00 mm Hg 02/23/2024 Weight 181 lbs 02/23/2024 BMI 25.97 kg/m2 02/23/2024 Encounters Encounter Location Date Provider Diagnosis [facility] [address] [place] [address] 02/23/2024 Mark Combs Encounter for screening for malignant neoplasm of colon Z12.11 ; Diarrhea R19.7 ; Long-term use of aspirin therapy Z79.82 ; History of adenomatous polyp of colon Z86.010 and GERD without esophagitis K21.9 [facility] [address] [facility] [place] [address] 08/26/2024 Mark Combs [facility] [address] [place] [address] 10/17/2023 Mark Combs [facility] [address] [place] [address] 05/31/2024 Mark Combs Chronic GERD K21.9 [facility] [address] [place], [place] [address] [address] 06/05/2024 Mark Combs [facility] [address] [place], [place] [address] [address] 06/05/2024 Mark Combs Abdominal aortic aneurysm, without rupture, unspecified I71.40 [facility] [address] [place], [place] [address] [address] 06/05/2024 Mark Combs Assessments Encounter Date Diagnosis (ICD Code) Assessment Notes Treatment Notes Treatment Clinical Notes Section Notes 02/23/2024 Encounter for screening for malignant neoplasm of colon (ICD-10 - Z12.11) DO NOT TAKE ASPIRIN ON THE DAY OF THE COLONOSCOPY Overall, Juan appears well. I did recommend a followup colonoscopy for further screening given his history of tubular adenomas and his last colonoscopy being over 5 years ago. We did review the rationale for that regard to colon cancer prevention. Full consent is obtained for this, including risks of bleeding and perforation. The procedure will be done with monitored anesthesia care. He was given the below instructions regarding adjustment of his medication for the procedure. In regard to change in bowel habits I advised him that this could be reflective of underlying lactose intolerance given the amount of milk he drinks every day. I advised naman to switch to a trial of lactose-free milk to see if that gives him any relief. I did advise him that I will send over a prescription for omeprazole given his increasing heartburn. I don't think an upper endoscopy as needed given the otherwise negative exam in that regard at 2019 and no worrisome upper GI complaints otherwise. Juan was comfortable with this plan. Thank you again for allowing me to participate in Juan's care. I shall continue to keep you advised of his progress. 02/23/2024 Diarrhea (ICD-10 - R19.7) Switch to Lactose-free milk like [place] milk, etc Overall, Juan appears well. I did recommend a followup colonoscopy for further screening given his history of tubular adenomas and his last colonoscopy being over 5 years ago. We did review the rationale for that regard to colon cancer prevention. Full consent is obtained for this, including risks of bleeding and perforation. The procedure will be done with monitored anesthesia care. He was given the below instructions regarding adjustment of his medication for the procedure. In regard to change in bowel habits I advised him that this could be reflective of underlying lactose intolerance given the amount of milk he drinks every day. I advised hin to switch to a trial of lactose-free milk to see if that gives him any relief. I did advise him that I will send over a prescription for omeprazole given his increasing heartburn. I don't think an upper endoscopy as needed given the otherwise negative exam in that regard at 2019 and no worrisome upper GI complaints otherwise. Juan was comfortable with this plan. Thank you again for allowing me to participate in Juan's care. I shall continue to keep you advised of his progress. 05/31/2024 Chronic GERD (ICD-10 - K21.9) 06/05/2024 Abdominal aortic aneurysm, without rupture, unspecified (ICD-10 - I71.40) 02/23/2024 Long-term use of aspirin therapy (ICD-10 - Z79.82) Overall, Juan appears well. I did recommend a followup colonoscopy for further screening given his history of tubular adenomas and his last colonoscopy being over 5 years ago. We did review the rationale for that regard to colon cancer prevention. Full consent is obtained for this, including risks of bleeding and perforation. The procedure will be done with monitored anesthesia care. He was given the below instructions regarding adjustment of his medication for the procedure. In regard to change in bowel habits I advised him that this could be reflective of underlying lactose intolerance given the amount of milk he drinks every day. I advised hin to switch to a trial of lactose-free milk to see if that gives him any relief. I did advise him that I will send over a prescription for omeprazole given his increasing heartburn. I don't think an upper endoscopy as needed given the otherwise negative exam in that regard at 2019 and no worrisome upper GI complaints otherwise. Juan was comfortable with this plan. Thank you again for allowing me to participate in Juan's care. I shall continue to keep you advised of his progress. 02/23/2024 History of adenomatous polyp of colon (ICD-10 - Z86.010) Overall, Juan appears well. I did recommend a followup colonoscopy for further screening given his history of tubular adenomas and his last colonoscopy being over 5 years ago. We did review the rationale for that regard to colon cancer prevention. Full consent is obtained for this, including risks of bleeding and perforation. The procedure will be done with monitored anesthesia care. He was given the below instructions regarding adjustment of his medication for the procedure. In regard to change in bowel habits I advised him that this could be reflective of underlying lactose intolerance given the amount of milk he drinks every day. I advised hin to switch to a trial of lactose-free milk to see if that gives him any relief. I did advise him that I will send over a prescription for omeprazole given his increasing heartburn. I don't think an upper endoscopy as needed given the otherwise negative exam in that regard at 2019 and no worrisome upper GI complaints otherwise. Juan was comfortable with this plan. Thank you again for allowing me to participate in Juan's care. I shall continue to keep you advised of his progress. 02/23/2024 GERD without esophagitis (ICD-10 - K21.9) Overall, Juan appears well. I did recommend a followup colonoscopy for further screening given his history of tubular adenomas and his last colonoscopy being over 5 years ago. We did review the rationale for that regard to colon cancer prevention. Full consent is obtained for this, including risks of bleeding and perforation. The procedure will be done with monitored anesthesia care. He was given the below instructions regarding adjustment of his medication for the procedure. In regard to change in bowel habits I advised him that this could be reflective of underlying lactose intolerance given the amount of milk he drinks every day. I advised hin to switch to a trial of lactose-free milk to see if that gives him any relief. I did advise him that I will send over a prescription for omeprazole given his increasing heartburn. I don't think an upper endoscopy as needed given the otherwise negative exam in that regard at 2019 and no worrisome upper GI complaints otherwise. Juan was comfortable with this plan. Thank you again for allowing me to participate in Juan's care. I shall continue to keep you advised of his progress. Plan Of Treatment Pending Test Test Name Order Date US ABD AORTA 06/05/2024 US abdominal aortic aneurysm 06/05/2024 Future Test Test Name Order Date COLONOSCOPY 06/01/2016 UPPER GI ENDOSCOPY 07/13/2018 COLONOSCOPY 02/23/2024 UPPER GI ENDOSCOPY 05/31/2024 Insurance Providers Payer Name Payer Address Payer Phone Subscriber Number Group Number Insured Name Patient Relationship to Insured Coverage Start Date Coverage End Date [place] [address] [place] [address] [id number] LAVONNE ARANGOY Self - patient is the insured MEDICAID OF [facility] [place] [facility] [address] [place] [address] [id number] LAVONNE ARANGOY Self - patient is the insured Medical (General) History Medical History History ICD Code Heart attack 09/11/2015--2 st ents--at [facility]--fine since then--sees Dr. Francisco at [facility] Arthritis in spine Abdominal aortic aneurysm Negative colonoscopy > 10 yr s ago at [facility] for evaluation of rectal bleeding--he describes the finding of hemorrhoids Denies DM,CVA,Lung disease,renal disease Gallstones-asymptomatic Colonoscopy 10/2016--2 tubular adenomas r emoved EGD in 07/2018--erosive gastr itis, bx neg for Hpylori; AVM's nonbleeding; no esophagitis Surgical History Surgery Date(Month/Year) Cervical spondylosis 1998 Appendectomy 1963 Cataract surgery bilateral
[2024-08-29 15:08] LABS: GFR POC > 60
== END 2024-08-29 10:10 | disposition home or self-care (01) ==
LOC: HO.CT 10:09
PROVIDERS: PCP Internal Medicine; Referring Provider Surgery Vascular Surgery; Visit Provider Internal Medicine
DX: R91.8 Other nonspecific abnormal finding of lung field (principal)
CPT/HCPCS: 71260; 82565; Q9967

== ENCOUNTER → 2024-08-29 10:12 | Outpatient (BNV) | payer MEDICARE, MEDICAID, SELFPAY | PROVIDERS: PCP Internal Medicine; Referring Provider Surgery Vascular Surgery; Visit Provider Radiology Diagnostic Radiology | DX: R91.8 Other nonspecific abnormal finding of lung field (principal) | CPT/HCPCS: 71260 ==

== ENCOUNTER 2024-09-06 08:44 | Outpatient (AMB) | payer MEDICARE, MEDICAID, SELFPAY ==
[2024-09-06 08:54] VITALS: BP 130/76; PULSE 65; TEMP 37.1; O2SAT 99; BMI 26.2
--- NOTE | 2024-09-06 08:54 | MHC.PC.OV ---
Vital Signs 09/06/24 08:54 Height 5 ft 10 in Weight 182 lb 12.8 oz BMI 26.2 BP 130/76 Blood Pressure Location Lt brachial Position Sitting Pulse 65 Pulse Source Pulse Oximeter Temp 98.8 F Temp Source Oral Pulse Oximetry (%) 99 Oxygen Delivery Method Room Air Intake Visit Reasons: KARLENE Dr Tucker Central Office Operator Required: No Accompanied by: Self / Same As Patient Allergies Wqswyvm-BDI-WyV Reductase Inhibitor [[id number] REDUCTASE INHIBITOR] Allergy (Mild, Verified 09/16/24 21:10) Muscle Pain Medication List - Last Reconciled 09/06/24 by HELEN Braden aspirin 81 mg PO DAILY metoprolol succinate ER 50 mg PO DAILY omeprazole 20 mg PO DAILY sildenafil (Viagra) 50 mg PO DAILY PRN Tobacco use date assessed: 09/06/24 Fall risk assessment: No Falls in past year Last assessed Fall Risk: 09/06/24 Dental Screening Dental Screen Date: 09/06/24 Did you have a dental visit in the last 12 months?: No Did you have a dental problem in the last 6 months where you did not have access to dental care?: No HPI KARLENE Dr Tucker HPI Details THE PATIENT IS A 69-YEAR-OLD MALE WHO WAS PRESENTING TO TRANSITION CARE FROM DR. TUCKER WHO RETIRED Reports that he had covid in February for the first time and his coughing progressed since then Reports that he got concern because he started coughing up blood till it turns into coughing up blood clots Reports that he was being evaluated for AAA by vascular at [facility] and had an incidental finding of a left lower lobe mass. He reports that there is nothing he could do about this until his aneurysm is fixed. He is currently waiting for a custom stent to be made for vascular to fix his aneurysm and then he could proceed with taking care of the lung mass. Patient reports that he also was seen by Cardiology and they started him on ezetimibe 10 mg for cholesterol but has not started this in fear of muscle cramps. Patient reports that he has been smoking a pack a day since 1968 to 2016. Patient also reports that he has been peeing often but like everything else this has to wait until after his procedure. Reports that he already has a relationship with urology, years ago for Peyronie's disease. The patient denies chest pain, shortness of breath, heart palpitation, he denies abdominal pain and heartburn. He reports that he has been taking omeprazole everyday with good relief. In addition, the patient reports that he had a lung collapse in 1981 on the left side and is wondering if that could have caused the lung mass. [facility] Medical History Arthritis AAA (abdominal aortic aneurysm) Myocardial infarction Elevated cholesterol CAD (coronary artery disease) Surgical History History of esophagogastroduodenoscopy (EGD) H/O colonoscopy Hx of heart artery stent History of cataract surgery History of ear surgery History of neck surgery History of appendectomy Family History Other Substance use disorder [facility] Alcohol intake: current Alcohol intake frequency: holidays/special occasions only Alcohol type: wine Patient Tobacco Use Status: Former Tobacco user Cigarette Packs Per Day: 1.5 Years Smoked: 45 e-Cigarette/Vaping Use: Never Used Second Hand Smoke Exposure: No Substance Use Type: Marijuana service: No Current occupational status: employed Cognitive needs: No Hearing needs: No Vision needs: No Questionnaire PHQ-9 Over the last 2 weeks, how often have you been bothered by any of the following problems? 1. Little interest or pleasure in doing things: not at all 2. Feeling down, depressed, or hopeless: not at all 3. Trouble falling or staying asleep, or sleeping too much: nearly every day 4. Feeling tired or having little energy: not at all 5. Poor appetite or overeating: not at all 6. Feeling bad about yourself - or that you are a failure or have let yourself or your family down: not at all 7. Trouble concentrating on things, such as reading the newspaper or watching television: not at all 8. Moving or speaking so slowly that other people could have noticed. Or the opposite - being so fidgety or restless that you have been moving around a lot more than usual: not at all 9. Thoughts that you would be better off or of hurting yourself in some way: not at all Total score: 3 Depression Screening Interpretation: Negative Depression Screening Done: Yes 33159 - PHQ-9 Billing: Yes Source: Developed by Drs. Mark Castaneda, Monica Morrissey, Wong Valverde and colleagues, with an educational john from [employer]. Thrive Questionnaire Date Thrive assessed: 09/06/24 I am a: Patient What is your living situation today?: I have a steady place to live Within the past 12 months, did the food you bought not last and you didn't have the money to get more?: Never true Within the past 12 months, did you worry whether your food would run out before you got money to buy more?: Never true Do you have trouble paying for medicines?: No Do you have trouble getting transportation to medical appointments?: No Do you have trouble paying your heating and electricity bill?: No Do you have trouble taking care of your child, family member or friend?: No Do you have trouble with day-to-day activities such as bathing, preparing meals, shopping, managing finances, etc.?: No Are you currently unemployed and looking for a job?: No Are you interested in more education?: No Please select the resources that you would like help with: None Currently or been in a relationship where the following occur: No concerns reported THRIVE Score: 0 AUDIT C Alcohol Use Questionnaire (AUDIT-C) 2. How many drinks containing alcohol do you have on a typical day when you are drinking?: 1 or 2 3. How often do you have six or more drinks on one occasion?: Less than monthly Total Score: 1 RODRIGUE-7 AMB Questionnaire RODRIGUE-7 Date RODRIGUE - 7 assessed: 09/06/24 Feeling nervous, anxious, or on edge: 3 = Nearly every day Not being able to stop or control worryin = Not at all Worrying too much about different things: 0 = Not at all Trouble relaxin = Nearly every day Being so restless that it is hard to sit still: 0 = Not at all Becoming easily annoyed or irritable: 0 = Not at all Feeling afraid as if something awful might happen: 0 = Not at all Total RODRIGUE-7 score (0-4 normal; 5-9 mild; 10-14 moderate; 15-21 severe): 6 Source: Developed by Drs. Mark Castaneda, Monica Morrissey, Wong Valverde and colleagues, with an educational john from [employer]. RODRIGUE-7 Assessment Billing RODRIGUE-7 Assessment Tool: RODRIGUE-7 Assessment 09195 Review of Systems Const Denies headache(s) Eyes Denies loss of vision ENT Denies vertigo, Denies dizziness, Denies headache(s) and Denies sore throat Card Denies chest pain, Denies leg edema and Denies lightheadedness Resp Reports cough, Reports hemoptysis and Denies wheezing GI Denies abdominal pain, Denies melena, Denies constipation, Denies diarrhea and Denies vomiting Denies dysuria, Denies urinary frequency and Denies urinary urgency Musc Denies arthralgias, Denies joint swelling, Denies numbness and Denies tingling Neuro Denies Abnormal speech present, Denies behavioral changes, Denies vertigo, Denies dizziness, Denies headache(s), Denies loss of vision, Denies memory loss, Denies numbness and Denies tingling Psych Denies anxiety, Denies behavioral changes, Denies depression, Denies memory loss and Denies panic attacks Rush/Lymph Denies easy bleeding and Denies easy bruising Aller/Immun Denies wheezing Physical exam (Primary Care) Vital Signs: Last Vital Signs Temp 98.8 F 09/06/24 08:54 Pulse 65 09/06/24 08:54 BP 130/76 09/06/24 08:54 Pulse Ox 99 09/06/24 08:54 Oxygen Delivery Method Room Air 09/06/24 08:54 BMI result Body Mass Index 26.2 Tobacco/Smoking Status: Tobacco use Status Tobacco use date assessed 09/06/24 09/06/24 09:04 Patient Tobacco Use Status Former Tobacco user 09/06/24 09:04 e-Cigarette/Vaping Use Never Used 09/06/24 09:04 PHQ-9: PHQ-9 Score PHQ-9: Total score 3 09/16/24 21:13 Depression Screening Interpretation: Negative Thrive Assessment: Date of Thrive Assessment Date Thrive assessed 09/06/24 09/06/24 09:04 Currently or been in a relationship where the following occur: No concerns reported Const General: healthy appearing, no acute distress, alert and awake Nutritional Appearance: well nourished Orientation/consciousness: oriented to person, oriented to place and oriented to time HENMT Ears: TM's normal bilaterally General nose exam: Normal nasal mucous membranes and turbinates present Eyes Conjunctivae: conjunctivae normal Sclerae: sclerae normal Pupils: Equal, round and reactive pupils present Neck Neck: Yes no lymphadenopathy and Yes no JVD Thyroid: Thyroid normal Carotids: no bruits Resp Effort & Inspection: normal respiratory effort and not tachypneic Auscultation: no crackles, no rales, no rhonchi and no wheezes Cardio Rate: regular rate Rhythm: regular rhythm Heart sounds: no murmurs and normal S1 and S2 GI Palpation (GI): Soft to palpation, nontender, no hepatomegaly, no splenomegaly and Other GI palpation findings present (AAA-being evaluated by for repair by vascular) Auscultation: normal bowel sounds Skin General skin exam: no rashes or lesions noted and dry skin Neuro General: oriented to person, oriented to place and oriented to time Cranial nerves: Yes Equal, round and reactive pupils present Speech: No Abnormal speech present Gait exam (Neuro): Normal gait present Motor exam (neuro): no tremor noted Extrem Right upper extremity: full ROM Left upper extremity: full ROM Right lower extremity: full ROM; no edema Left lower extremity: full ROM; no edema Psych Mental Status: mental status grossly normal Speech and movement: Normal speech and movement present Affect: normal affect Attitude: cooperative Thought process: Normal thought process present Coding Level of Care Code Est Pt Level 4 (47015) Diagnoses Lung mass R91.8 Hypertension, unspecified type I10 Hypertension type: unspecified Abdominal aortic aneurysm (AAA) without rupture, unspecified part I71.40 Presence of rupture: without rupture Abdominal aorta location: unspecified Coronary artery disease, unspecified vessel or lesion type, unspecified whether angina present, unspecified whether tetlin or transplanted heart I25.10 Coronary Disease-Associated Artery/Lesion type: unspecified vessel or lesion type [place] vs. transplanted heart: unspecified whether tetlin or transplanted heart Associated angina: unspecified whether angina present Additional Codes RODRIGUE-7 Assessment Billing - RODRIGUE-7 Assessment Tool: RODRIGUE-7 Assessment 17836 ([id number]) PHQ-9 - 09867 - PHQ-9 Billing: Yes ([id number]) Time Spent (min) 42 Assessment & Plan Assessment & Plan (1) Lung mass: Code(s): R91.8 - Other nonspecific abnormal finding of lung field Category: Medical Plan: The incidental finding while being evaluated for AAA by vascular. The patient already has an appointment with Pulmonary, but most likely would have to wait until his AAA is repaired. (2) Hypertension: Code(s): I10 - Essential (primary) hypertension Category: Medical Qualifiers: Hypertension type: unspecified Qualified Code(s): I10 - Essential (primary) hypertension Plan: Reinforced low-sodium diet, continue metoprolol succinate ER 50 mg daily. The patient was started on ezetimibe 10 mg by a cardiology. He has not started this medication in fear of muscle cramps. Reports that he was on statins before and caused him a lot of cramps. Discussed with the patient that this medication is not a statin and works a little different and even though it can cause muscle cramps, it is less likely compared to a statin. (3) AAA (abdominal aortic aneurysm): Comment: CT scan at [facility] 09/2022 showed 5.2 cm infrarenal AAA Code(s): I71.40 - Abdominal aortic aneurysm, without rupture, unspecified Category: Medical Qualifiers: Presence of rupture: without rupture Abdominal aorta location: unspecified Qualified Code(s): I71.40 - Abdominal aortic aneurysm, without rupture, unspecified Plan: The patient is being evaluated by vascular at [facility] with plans for repair. The patient is waiting for a custom stent to be made the proceed with this procedure. (4) Coronary artery disease: Code(s): I25.10 - Atherosclerotic heart disease of tetlin coronary artery without angina pectoris Category: Medical Qualifiers: Coronary Disease-Associated Artery/Lesion type: unspecified vessel or lesion type [place] vs. transplanted heart: unspecified whether tetlin or transplanted heart Associated angina: unspecified whether angina present Qualified Code(s): I25.10 - Atherosclerotic heart disease of tetlin coronary artery without angina pectoris Plan: Status post coronary stenting x2 in 2016 Continue aspirin 81 mg daily and metoprolol succinate ER 50 mg daily. Follow up with Cardiology as scheduled Medications: New ezetimibe 10 mg PO DAILY 30 tabs 3RF E78.00 - Pure hypercholesterolemia, unspecified
== END 2024-09-06 09:57 | disposition home or self-care (01) ==
LOC: HO.HMCH 08:44
DX: R91.8 Other nonspecific abnormal finding of lung field (principal); I10 Essential (primary) hypertension; I71.40 Abdominal aortic aneurysm, without rupture, unspecified; I25.10 Atherosclerotic heart disease of native coronary artery without angina pectoris

== ENCOUNTER → 2024-09-06 08:44 | Outpatient (BNVA) | payer MEDICARE, MEDICAID, SELFPAY | DX: R91.8 Other nonspecific abnormal finding of lung field (principal); I10 Essential (primary) hypertension; I71.40 Abdominal aortic aneurysm, without rupture, unspecified; I25.10 Atherosclerotic heart disease of native coronary artery without angina pectoris | CPT/HCPCS: 96127; 99212 ==

== ENCOUNTER 2024-09-07 12:59 | Outpatient (AMB) | payer MEDICARE, MEDICAID, SELFPAY ==
--- NOTE | 2024-09-07 13:12 | MHC.OFFVIS ---
Vital Signs 09/07/24 13:14 Height 5 ft 10 in Weight 185 lb BMI 26.5 BP 140/80 H Blood Pressure Location Lt brachial Position Sitting Pulse 65 Pulse Source Pulse Oximeter Pulse Oximetry (%) 96 Oxygen Delivery Method Room Air Intake Visit Reasons: Abnormal CT scan Jacquard Lace Weaver Required: No Hand Loom Weaver: Hand Loom Weaver offered & declined Accompanied by: Self / Same As Patient Allergies Crsfloj-IAG-HcW Reductase Inhibitor [LTLKPWZ-MRP-BJO REDUCTASE INHIBITOR] Allergy (Mild, Verified 09/07/24 13:18) Muscle Pain Medication List - Last Reconciled 09/07/24 by Xochilt Abdullahi LPN aspirin 81 mg PO DAILY ezetimibe 10 mg PO DAILY metoprolol succinate ER 50 mg PO DAILY omeprazole 20 mg PO DAILY sildenafil (Viagra) 50 mg PO DAILY PRN HPI HPI Abnormal CT scan: Details: Juan is a pleasant 69 year old male, former smoker, quit 2016 with approximately 67 pack year history with underlying h/o [place] s/p bare meal stents 2016 on ASA, AAA 6.5 cm, GERD, HTN and CAD. He was referred by PCP for pulmonary evaluation after recent CT chest revealed left lung mass, report below. He was under evaluation through vascular at [facility] for AAA and incidental finding of LLL mass on abdominal CT. Prior CXR have been unremarkable. He reported having increased fatigue and hemoptysis that started after manda COVID 19 in February and has continued. He also reports intermittent wheezing, denies dyspnea or cough. Denies any respiratory medications. He denies prior h/o asthma/COPD. He reports father with h/o asbestosis otherwise no other pertinent family history. He denies any personal h/o cancer. He denies any unintentional weight loss, fevers or chills. He denies any occupational exposures. [facility] Medical History (Updated 09/07/24 @ 17:01 by Shelby Colvin NP) Arthritis AAA (abdominal aortic aneurysm) Myocardial infarction Elevated cholesterol CAD (coronary artery disease) Surgical History History of esophagogastroduodenoscopy (EGD) H/O colonoscopy Hx of heart artery stent History of cataract surgery History of ear surgery History of neck surgery History of appendectomy Family History Other Substance use disorder Social History (Updated 09/07/24 @ 13:21 by Xochilt Abdullahi LPN) Housing: Condominium Alcohol intake: current Alcohol intake frequency: holidays/special occasions only Alcohol type: wine Patient Tobacco Use Status: Former Tobacco user Cigarette Packs Per Day: 1.5 Years Smoked: 45 e-Cigarette/Vaping Use: Never Used Second Hand Smoke Exposure: No Substance Use Type: Marijuana service: No Current occupational status: employed Cognitive needs: No Hearing needs: No Vision needs: No Review of Systems Const Denies chills, Denies excessive sweating, Denies fever(s), Denies headache(s) and Denies night sweats Eyes Denies dry eyes, Denies irritation and Denies itchy eyes ENT Reports Normal hearing present, Denies headache(s), Denies nasal congestion, Denies nasal discharge, Denies post nasal drip and Denies sore throat Card Denies chest pain, Denies chest pain at rest, Denies chest pain with activity, Denies claudication, Denies leg edema, Denies dyspnea, Denies dyspnea on exertion, Denies orthopnea and Denies paroxysmal nocturnal dyspnea Resp Denies chest congestion, Denies excessive phlegm production, Denies pain on inspiration, Denies pain with cough, Denies dyspnea, Denies dyspnea on exertion, Denies stridor and Reports wheezing Musc Denies myalgias Neuro Reports Normal hearing present and Denies headache(s) Endo Denies excessive sweating Rush/Lymph Denies lymphadenopathy Aller/Immun Denies itchy eyes, Denies seasonal rhinorrhea and Reports wheezing Physical Exam Vital Signs: Last Vital Signs Pulse 65 09/07/24 13:14 BP 140/80 H 09/07/24 13:14 Pulse Ox 96 09/07/24 13:14 Oxygen Delivery Method Room Air 09/07/24 13:14 BMI result Body Mass Index 26.5 Const General: cooperative, healthy appearing, comfortable, no acute distress, well developed and alert Orientation/consciousness: patient oriented x3 Limitations: no limitations HEENT Head: Yes normal to inspection, Yes normocephalic and Yes atraumatic Ears: hearing grossly normal bilaterally and external ears normal Eyes General: appearance normal, both eyes and all related structures Eyelids: Yes eyelids normal Sclerae: sclerae normal EOM: EOMs intact bilaterally Neck Neck: Yes normal visual inspection and Yes no lymphadenopathy Lymphatic: no lymphadenopathy noted Chest Chest palpation & inspection: normal inspection of the chest Resp Effort & Inspection: normal respiratory effort, able to speak in complete sentences, no audible wheezes, no cough, no stridor, not tachypneic, no tripod positioning and no use of accessory muscles Auscultation: clear to auscultation bilaterally Cardio Jugular venous distension: no JVD Rate: regular rate Rhythm: regular rhythm Skin Other: warm, dry General skin exam: no rashes or lesions noted Neuro General: patient oriented x3 Cranial nerves: Yes Normal hearing present Cognition (Neuro): normal cognition Gait exam (Neuro): Normal gait present Extrem General: Yes normal to inspection, Yes capillary refill normal, Yes no clubbing, cyanosis or edema and Yes no pedal edema Psych Appearance: grossly normal and well kempt Speech and movement: Normal speech and movement present and Clear speech present Affect: normal affect Attitude: cooperative Thought process: Normal thought process present Thought content: Normal thought content present Insight: Good insight present (Psych) Judgement: Good judgement present (Psych) Results Reviewed Results Reviewed: [place] [id number] CT Scan Report Signed Patient: Juan Arango MR#: [id number] : 1955 Acct:[id number] Age/Sex: 69 / M ADM Date: 08/29/24 Loc: .CT Attending Dr: Harrison Tucker MD Ordering Physician: Harrison Tucker MD Date of Service: 08/29/24 Procedure(s): CT chest w IV con Accession Number(s): [id number] cc: Harrison Tucker MD~ Report Number: [id number]: Total DLP = 161.00 mGy-cm EXAMINATION: CT CHEST WITH CONTRAST CLINICAL INFORMATION: Lung mass. COMPARISON: No prior CT. Correlation made with chest radiograph 05/11/2024. TECHNIQUE: Multidetector volumetric CT imaging of the chest was obtained after the administration of 50 mL of Omnipaque 350 intravenous contrast without immediate adverse reactions. Axial MIP volume rendering provided. Sagittal and coronal reformatted images were obtained. This CT examination was performed using dose optimization techniques as appropriate, variously including the following: *Automated exposure control *Adjustment of mA and/or kV according to patient size (this includes techniques or standardized protocols for targeted exams where dose is matched to indication/reason for exam; i.e. extremities or head) *Use of iterative reconstruction technique FINDINGS: NODULES: -There is a large lobular soft tissue mass in the left lower lobe ventrally measuring approximately 5.5 x 6.6 x 4.1 cm (AP, TRV, CC). This measures Hounsfield units of approximately 28, and extends to abut the inferior major fissure. There are surrounding groundglass parenchymal changes. -There is a 1.2 x 0.4 x 0.2 cm groundglass nodule abutting the minor fissure within the anteroinferior right upper lobe (series 4, image 93). This may be an intrapulmonary lymph node but is nonspecific. -Within the right middle lobe laterally there is a 9 mm pure groundglass nodule (series 4, image 97). -There are no additional pulmonary nodules identified. LUNGS: -There is moderate centrilobular and paraseptal emphysema, with upper lobe predominance. -There is biapical scarring with associated apical bulla. -There is no consolidative opacity. -There is minimal diffuse bronchiectasis without bronchial wall thickening. -There is no pleural effusion or pneumothorax. MEDIASTINUM: -There is a 0.9 cm right thyroid nodule. No follow-up recommended. Thyroid otherwise normal. -There is no mediastinal lymphadenopathy or mass. -There is a left inferior hilar lymph node present measuring 1.8 x 1.7 cm (series 3, image 33). -There is a right mid hilar lymph node measuring 1.2 cm in short axis. -Normal aorta and main pulmonary artery. -Heart size normal. No pericardial effusion There are moderate to heavy coronary calcifications. -Normal esophagus and GE junction. PLEURA: There is no pleural effusion. No pleural mass or thickening. AXILLA/CHEST WALL: No lymphadenopathy. UPPER ABDOMEN: -There is diffuse fatty infiltration of the liver. There is an enhancing peripheral segment 8 nodule measuring 1.5 cm (series 3, image 61). There are small foci of fatty sparing. -There are cholesterol gallstones within the gallbladder. -There is a right adrenal nodule measuring 1.8 x 1.9 cm (series 3, image 68). This is indeterminate. -There is a second segment small duodenal diverticulum. OSSEOUS STRUCTURES: -No suspicious lytic or blastic bone lesion. CT/CT chest w IV con IMPRESSION: 1. Moderate paraseptal and centrilobular emphysema with upper lobe predominance. 2. There is a large lobular soft tissue mass in the left lower lobe ventrally measuring approximately 5.5 x 6.6 x 4.1 cm. This is surrounded by a halo of groundglass changes. Primary or secondary neoplasm suspected. 3. There is a groundglass nodule abutting the minor fissure within the anteroinferior right upper lobe measuring 1.2 x 0.4 x 0.2 cm. This may be an intrapulmonary lymph node but is nonspecific. 4. There are biapical bulla and parenchymal scarring. 5. There is a left inferior hilar lymph node measuring up to 1.8 cm. This is likely metastatic. 6. There is a right mid hilar lymph node measuring up to 1.2 cm short axis. 7. Diffuse fatty infiltration of the liver. Enhancing 1.5 cm segment 8 nodule. This is nonspecific. 8. There is a right adrenal nodule measuring 1.8 x 1.9 cm, indeterminate. 9. Additional ancillary findings as discussed in the body of the report. Electronically signed by: Stephan Darling MD 08/29/2024 11:51 AM EDT Dictated By: Stephan Darling MD Signed By: <Electronically signed by Stephan Darling MD in OV> 08/29/24 1151 DD/ 1045 TD/TT: 08/29/24 1108 Technical Documentation Specialist: Assessment & Plan Assessment & Plan (1) Lung mass: Code(s): R91.8 - Other nonspecific abnormal finding of lung field Category: Medical (2) Hemoptysis: Code(s): R04.2 - Hemoptysis Category: Medical (3) COPD (chronic obstructive pulmonary disease): Code(s): J44.9 - Chronic obstructive pulmonary disease, unspecified Category: Medical (4) Personal history of tobacco use: Code(s): Z87.891 - Personal history of nicotine dependence Category: Social Hx Plan Juan presents after recent CT concerning for possible neoplastic disease. CT chest revealed moderate paraseptal and centrilobular emphysema with upper lobe predominance, a large lobular soft tissue mass in the left lower lobe measuring approximately 5.5 x 6.6 x 4.1 cm which is surrounded by a halo of groundglass changes. Primary or secondary neoplasm suspected. There was also note of a groundglass nodule abutting the minor fissure within the anteroinferior right upper lobe measuring 1.2 x 0.4 x 0.2 cm as well as a left inferior hilar lymph node measuring up to 1.8 cm, which may be metastatic. Had long discussion with patient discussing these findings and the high suscpicion for malignancy. Will send for CT guided biopsy of left lower lobe mass as well as PET scan. Patient also notes hemoptypsis with no vascular abnormalities seen on recent CT with contrast. He is aware if hemoptysis increases to seek emergent care. Patient with ongoing fatigue, once s/p AAA repair which is scheduled for 09/28 will schedule for PFT. Will hold off on any JOY/LABA components of medications until after surgery. All questions were answered and patient is in agreement of plan. Will follow up to review results or sooner if needed. Orders: Orders CT biopsy lung LT Today R91.8 - Other nonspecific abnormal finding of lung field Coding Level of Care Code New Pt Level 4 (12725) Complex EM visit Add On G2211 Diagnoses Lung mass R91.8 Hemoptysis R04.2 COPD (chronic obstructive pulmonary disease) J44.9 Personal history of tobacco use Z87.89
[2024-09-07 13:14] VITALS: BP 140/80; PULSE 65; O2SAT 96; BMI 26.5
--- OUTSIDE RECORDS SUMMARY | 2024-09-07 15:22 | XMS_ITS ---
Author Organization [facility] Address [address] [place] [address] Care Team Providers Care Flower Arranger Name Role Phone Harrison Tucker MD Primary Care Provider Maria Luisaa Mark Gabriel Unavailable [phone] Encounters Encounter Location Date Provider Diagnosis [facility] [address] [place] [address] 06/05/2024 Mark Combs Plan Of Treatment No Information Progress Notes * LEONID DON SDOB:1955 (69 yo M)Acc No.[id number]:06/05/2024 Patient:?LEONID DON :1955???Age:69 Y???Sex:Male Address:[address] [place], [address] * true * Date:? Generated for Printi barron/Juan Pablo/eTransmitting on:?09/07/2024 03:22 PM EDT
--- OUTSIDE RECORDS SUMMARY | 2024-09-07 15:23 | XMS_ITS | Patient Health Record ---
Author Organization [facility] Address [address] [place] [address] Care Team Providers Care Clinical Writer Name Role Phone Harrison Tucker MD Primary Care Provider Mark Vinson Unavailable [phone] Allergies Allergen (clinical drug ingredient) Drug/Non Drug Allergy documented on EMR Reaction Allergy Type Onset Date Status atorvastatin Atorvastatin Calcium muscle pain Drug Allergy Active Results Component Value Reference Range Notes US abdominal aortic aneurysm (Not yet reviewed by provider) Interpretation: Performing Lab: Notes/Report: [address] [address] Ultrasound Report Signed Patient: Juan Arango MR#: [id number] : 1955 Acct:[id number] Age/Sex: 69 / M ADM Date: 06/05/24 Loc: . Attending Dr: Mark Combs MD Ordering Physician: Mark Combs MD Date of Service: 06/05/24 Procedure(s): US abdominal aortic aneurysm Accession Number(s): [id number] cc: Harrison Tucker MD; Mark Combs MD [...] by: Payton Potter MD 06/05/2024 10:15 AM [facility] Dictated By: Payton Potter MD Signed By: <Electronically signed by Payton Potter MD in OV> 06/05/24 1015 DD/ 0820 TD/TT: 06/05/24 0846 Wire Cutter: [place] [id number] Ultrasound Report Signed Patient: Juan Arango MR#: [id number] : 1955 Acct:[id number] Age/Sex: 69 / M ADM Date: 06/05/24 Loc: HO.US Attending Dr: Mark Combs MD Ordering Physician: Mark Combs MD Date of Service: 06/05/24 Procedure(s): US abd ominal aortic aneurysm Accession Number(s): [id number] cc: Harrison Tucker MD; Mark Combs MD [...] by: Payton Potter MD 06/05/2024 10:15 AM [facility] Dictated By: Payton Potter MD Signed By: <Wes teresa signed by Payton Potter MD in OV> 06/05/24 1015 DD/ 0820 TD/TT: 06/05/24 0846 Wire Cutter: Reason For Referral No Information Medications Medication SIG (Take, Route, Frequency, Duration) Notes Start Date End Date Status Omeprazole 20 MG TAKE 1 CAPSULE BY [facility] EVERY MORNING for 30 Active Aspir-81 [...] Problem Status W/U Status Risk Notes Problem 576972992 Encounter for screening for malignant neoplasm of colon (Z12.11) Active confirmed Problem History of adenomatous polyp of colon (172391688) History of adenomatous polyp of colon (Z86.010) Active confirmed Problem Diarrhea (16033800) Diarrhea (R19.7) Active con firmed Problem Screening for malignant neoplasm of rectum (677436032) Encounter for screening for malignant neoplasm of rectum (Z12.12) Active confirmed Problem 585176039 Gallstones (K80.20) Active confirmed Problem 928140319 Long-term use of aspirin therapy (Z79.82) Active confirmed Problem 686395856 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) Active confirmed Problem Gastroesophageal reflux disease (574326075) GERD without esophagitis (K21.9) Active confirmed Problem 1403062 Chronic gastriti s without bleeding, unspecified gastritis type (K29.50) Active confirmed Problem 12020653 Globus sensation (F45.8) Active confirmed Problem 89588325 Globus pharyngeu s (F45.8) Active confirmed Problem Abdominal aortic aneurysm without rupture (disorder) (30659683) Abdominal aortic aneurysm, without rupture, unspecified (I71.40) Active confirmed Problem Gastroesophageal reflux disease (disorder) (982622848) Chronic GERD (K21.9) Active confirmed Vital Signs Blood pressure diastolic 00 mm Hg 02/23/2024 Height 70 in 02/23/2024 Blood pressure systolic 00 mm Hg 02/23/2024 Weight 181 lbs 02/23/2024 BMI 25.97 kg/m2 02/23/2024 Encounters Encounter Location Date Provider Diagnosis [facility] [address] [place] [address] 02/23/2024 Mark Combs Encounter for screening for malignant neoplasm of colon Z12.11 ; Diarrhea R19.7 ; Long-term use of aspirin therapy Z79.82 ; History of adenomatous polyp of colon Z86.010 and GERD without esophagitis K21.9 [facility] [address] [facility] [place] [address] 08/26/2024 Mark Combs [facility] [address] [place] [address] 10/17/2023 Mark Combs [facility] [address] [place] [address] 05/31/2024 Mark Combs Chronic GERD K21.9 [facility] [address] [place] [address], [place] [address] 06/05/2024 Mark Combs [facility] [address] [place], [place] [address], [place] [address] 06/05/2024 Mark Combs Abdominal aortic aneurysm, without rupture, unspecified I71.40 [facility] [address] [place], [place] [address], [place] [address] 06/05/2024 Mark Combs Assessments Encounter Date Diagnosis [...] - R19.7) Switch to Lactose-free milk like Potrero milk, etc Overall, Juan appears well. I [...] Start Date Coverage End Date MEDICARE OF [place] [address] [place] [address] [id number] LAVONNE ARANGOY Self - patient is the insured MEDICAID OF [facility] [address] [place] [phone] [id number] LAVONNE ARANGOY Self - patient is the insured Medical (General) History Medical History History ICD Code Heart attack 09/11/2015--2 st ents--at [facility]--fine since then--sees Dr. Francisco at [facility] Arthritis in spine Abdominal aortic aneurysm Negative colonoscopy > 10 yr s ago at [facility] for evaluation of rectal bleeding--he describes the finding of hemorrhoids Denies DM,CVA,Lung disease,renal disease Gallstones-asymptomatic Colonoscopy 10/2016--2 tubular adenomas r emoved EGD in 07/2018--erosive gastr itis, bx neg for Hpylori; AVM's nonbleeding; no esophagitis Surgical History Surgery Date(Month/Year) Cervical spondylosis 1998 Appendectomy 1963 Cataract surgery bilateral
--- OUTSIDE RECORDS SUMMARY | 2024-09-07 15:23 | XMS_ITS ---
Author Organization [facility] Address [address] [place] [address] Care Team Providers Care Electronic Organ Technician Name Role Phone Harrison Tucker MD Primary Care Provider Unavaila Mark Gabriel Unavailable [phone] Encounters Encounter Location Date Provider Diagnosis [facility] [address] [place] [address] 08/26/2024 Mark Combs Plan Of Treatment No Information Progress Notes * LEONID DON SDOB:1955 (69 yo M)Acc No.[id number]:08/26/2024 Patient:?LEONID DON :1955???Age:69 Y???Sex:Male Address:[address] [place], [address] * * Date:?
--- OUTSIDE RECORDS SUMMARY | 2024-09-07 15:23 | XMS_ITS ---
Author Organization [facility] Address [address] [place] [address] Care Team Providers Care Fabric Finisher Name Role Phone Caitlin AUSTIN, Harrison Primary Care Provider Unavaila Mark Gabriel Unavailable [phone] REASON FOR VISIT screening,hx polyps, gerd Encounters Encounter Location Date Provider Diagnosis [facility] Outpatient [address] [place] [phone] 06/06/2024 Mark Combs Plan Of Treatment No Information Progress Notes * LEONID DON SDOB:1955 (69 yo M)Acc No.[id number]:06/06/2024 EGD and COL/MAC Patient:?LEONID DON Provider:?Mark Combs MD :1955???Age:69 Y???Sex:Male Emeterio e:06/06/2024 Address:[address] , [place] Pcp:Harrison Tucker MD Subjective: * Chief Complaints: [...] MD Date:? 024 Generated for Printi ng/Faxing/eTransmitting on:?09/07/2024 03:22 PM EDT
== END 2024-09-07 14:07 | disposition home or self-care (01) ==
LOC: HO.HPSW 13:00
PROVIDERS: Referring Provider Internal Medicine; Visit Provider Nurse Practitioner Family
DX: R91.8 Other nonspecific abnormal finding of lung field (principal); R04.2 Hemoptysis; J44.9 Chronic obstructive pulmonary disease, unspecified; Z87.891 Personal history of nicotine dependence
CPT/HCPCS: 99204; G2211

== ENCOUNTER → 2024-09-07 12:59 | Outpatient (BNVA) | payer MEDICARE, MEDICAID, SELFPAY | PROVIDERS: Referring Provider Internal Medicine; Visit Provider Nurse Practitioner Family | DX: J44.9 Chronic obstructive pulmonary disease, unspecified (principal); R91.8 Other nonspecific abnormal finding of lung field; R04.2 Hemoptysis; Z87.891 Personal history of nicotine dependence | CPT/HCPCS: 99202 ==

== ENCOUNTER 2024-10-10 07:42 | Day surgery (SDC) | payer MEDICARE, MEDICAID, SELFPAY ==
--- OUTSIDE RECORDS SUMMARY | 2024-09-27 06:38 | XMS_ITS ---
Author Organization [facility] Address [address] [place] [address] Care Team Providers Care Spark Plug Assembler Name Role Phone Harrison Tucker MD Primary Care Provider Maria Luisaa Mark Gabriel Unavailable [phone] Encounters Encounter Location Date Provider Diagnosis [facility] [address] [place] [address] 06/05/2024 Mark Combs Plan Of Treatment No Information Progress Notes * LEONID DON SDOB:1955 (69 yo M)Acc No.[id number]:06/05/2024 Patient:?LEONID DON :1955???Age:69 Y???Sex:Male Address:[address] [place], [address] * true * Date:? Generated for Printi barron/Juan Pablo/eTransmitting on:?09/27/2024 06:37 AM EDT
--- OUTSIDE RECORDS SUMMARY | 2024-09-27 06:38 | XMS_ITS | Clinical Summary ---
Author Organization [facility] Address [address] [place] [address] Phone Care Team Providers Care Transcribing Machine Mechanic Name Role Phone Unavailable Primary Care Provider Unavailabl e Encounters Date Type Department Care Team Description 09/14/2024 7:17 AM EDT - 09/14/2024 11:59 PM EDT Hospital Encounter [facility] PET Scan [address] [place] [address] Other nonspecific abnormal finding of lung field Discharge Disposition: Home or Self Care from Last 3 Months Social History Tobacco Use Types Packs/Day Years Used Date Smoking Tobacco: Never Assessed Sex and Gender Information Value Date Recorded Sex Assigned at Not on file Legal Sex Male 2:44 PM EDT Gender Identity Not on file Sexual Orientation Not on file Plan of Treatment Health Maintenance Due Date Last Done Comments Pneumococcal Vaccine: 50+ Years (1 of 1 - PCV) 02/01/2006 RSV Immunization Adult Patients (1 - Risk 60-74 years 1-dose series) 2016 Abdominal Aortic Aneurysm (AAA) Screen 09/14/2024 Cholesterol Screening (Lipid Panel) 09/14/2024 Colorectal Cancer Screening: Colonoscopy 09/14/2024 Depression Screening 09/14/2024 Falls Risk Assessment 09/14/2024 Hepatitis C Screening 09/14/2024 Medicare Annual Wellness Visit 09/14/2024 Social Influencers of Health Screening 09/14/2024 DTaP,Tdap,and Td Vaccines (2 - Td or Tdap) 02/12/2029 02/12/2019 Zoster Vaccines Completed 12/26/2018, 10/22/2018 COVID-19 Vaccine Completed 09/08/2024, 11/2023, 05/27/2022, Additional history exists Influenza Vaccine Completed 09/08/2024, , 05/27/2022 HIB Vaccines Aged Out No longer eligi ble based on patient's age to complete this topic HPV Vaccines Aged Out No longer eligi ble based on patient's age to complete this topic Hepatitis A Vaccines Aged Out No long er eligible based on patient's age to complete this topic Hepatitis B Vaccines Aged Out No long er eligible based on patient's age to complete this topic IPV Vaccines Aged Out No longer eligi ble based on patient's age to complete this topic MMR Vaccines Aged Out No longer eligi ble based on patient's age to complete this topic Meningococcal ACWY Vaccine Aged Out N o longer eligible based on patient's age to complete this topic Meningococcal B Vaccine Aged Out No l onger eligible based on patient's age to complete this topic RSV Immunization Patients Under 20 months Aged Out No longer eligible based on patient's age to complete this topic Varicella Vaccines Aged Out No longer eligible based on patient's age to complete this topic Procedures Procedure Name Priority Date/Time Associated Diagnosis Comments PET CT SKULL TO MID THIGH INITIAL Routine 09/14/2024 9:30 AM EDT Other nonspecific abnormal finding of lung field from Last 3 Months Results * PET CT Skull to Mid Thigh Initial (09/14/2024 9:30 AM EDT) Anatomical Region Laterality Modality Body Radiographic Kacie ging 09/18/2024 3:42 AM EDT Impressions 09/18/2024 4:16 AM EDT 1. ??FDG avid left lower lobe mass suspicious for lung neoplasm 2. ??FDG avid left hilar lymphadenopathy suspicious for metastatic disease 3. ??Right adrenal nodule without significant FDG activity 4. ??5.7 cm infrarenal abdominal aortic aneurysm demonstrating FDG activity Please note: The CT was acquired at a low radiation dose settings. ??The images are of nondiagnostic quality and used solely for purposes of attenuation correction and slice localization for the PET scan. ??If a diagnostic CT study is desired it must be ordered separately. -------- FINAL REPORT -------- Dictated By: Allyn Garcia Dictated Date: 09/18/2024 03:42 ET Assigned Physician: Allyn Garcia Reviewed and Electronically Signed By: Allyn Garcia Signed Date: 09/18/2024 04:16 ET Workstation ID: [id number] Transcribed By: Self Edit Transcribed Date: 09/18/2024 03:42 ET Narrative 09/18/2024 4:16 AM EDT INDICATION: Lung mass left lower lobe. ??Groundglass nodule right upper lobe. ??Hilar lymphadenopathy. ??Right adrenal nodule. ??History of appendectomy and abdominal aortic aneurysm. TECHNIQUE: FDG PET-CT imaging was performed from the skull bases through the thighs in a single acquisition with data set reconstructed in axial, coronal, and sagittal planes at the computer workstation with fused data from both the PET imaging study and attenuation correction CT. The CT portion of the examination was done strictly for attenuation correction and is not a true diagnostic CT examination. DLP: ??562 mGy-cm Radiopharmaceutical: 12.3 mCi of F-18 FDG IV. Blood glucose: 169 mg/dl. COMPARISON: Outside chest CT August 2019 FINDINGS: HEAD AND NECK: No abnormal FDG activity. ??Left maxillary sinus retention cyst versus polyp without significant FDG activity. THORAX: 5.2 x 5.6 cm left lower lobe mass SUV max 7.8. ??Surrounding left lower lobe opacities SUV Max 2.3. FDG avid left hilar lymphadenopathy SUV max 5.8 (mediastinal blood pool SUV Max 3.0). ??Nonenlarged mediastinal lymph nodes without significant FDG activity. ??For example paratracheal and subcarinal lymph nodes SUV max 1.5. 8mm groundglass nodule right upper lobe SUV max 0.6. ??7 mm tubular opacity in the right lung apex SUV max 1.2. Emphysematous changes. ??Coronary artery calcifications. ABDOMEN/PELVIS: Right adrenal nodule without significant FDG activity SUV max 1.4 (contralateral left SUV max 1.6). ??Nonspecific bowel uptake. Hepatic steatosis. ??Cholelithiasis. ??5.7 cm infrarenal abdominal aortic aneurysm SUV max 5.7. ??Diverticulosis. ??Enlarged prostate gland. MUSCULOSKELETAL: No abnormal FDG activity. ??ACDF hardware. Procedure Note Allyn Garcia MD - 09/18/2024 INDICATION: Lung mass left lower lobe. Groundglass nodule right upperlobe. Hilar lymphadenopathy. Right adrenal nodule. History ofappendectomy and abdominal aortic aneurysm. TECHNIQUE: FDG PET-CT imaging was performed from the skull bases throughthe thighs in a single acquisition with data set reconstructed in axial,coronal, and sagittal planes at the computer workstation with fused datafrom both the PET imaging study and attenuation correction CT. The CTportion of the examination was done strictly for attenuation correctionand is not a true diagnostic CT examination. DLP: 562 mGy-cm Radiopharmaceutical: 12.3 mCi of F-18 FDG IV. Blood glucose: 169 mg/dl. COMPARISON: Outside chest CT August 2019 FINDINGS: HEAD AND NECK: No abnormal FDG activity. Left maxillary sinus retentioncyst versus polyp without significant FDG activity. THORAX: 5.2 x 5.6 cm left lower lobe mass SUV max 7.8. Surrounding leftlower lobe opacities SUV Max 2.3. FDG avid left hilar lymphadenopathy SUV max 5.8 (mediastinal blood poolSUV Max 3.0). Nonenlarged mediastinal lymph nodes without significant FDGactivity. For example paratracheal and subcarinal lymph nodes SUV max1.5. 8mm groundglass nodule right upper lobe SUV max 0.6. 7 mm tubular opacityin the right lung apex SUV max 1.2. Emphysematous changes. Coronary artery calcifications. ABDOMEN/PELVIS: Right adrenal nodule without significant FDG activity SUVmax 1.4 (contralateral left SUV max 1.6). Nonspecific bowel uptake. Hepatic steatosis. Cholelithiasis. 5.7 cm infrarenal abdominal aorticaneurysm SUV max 5.7. Diverticulosis. Enlarged prostate gland. MUSCULOSKELETAL: No abnormal FDG activity. ACDF hardware. IMPRESSION: 1. FDG avid left lower lobe mass suspicious for lung neoplasm 2. FDG avid left hilar lymphadenopathy suspicious for metastaticdisease 3. Right adrenal nodule without significant FDG activity 4. 5.7 cm infrarenal abdominal aortic aneurysm demonstrating FDGactivity Please note: The CT was acquired at a low radiation dose settings. The images are ofnondiagnostic quality and used solely for purposes of attenuationcorrection and slice localization for the PET scan. If a diagnostic CTstudy is desired it must be ordered separately. -------- FINAL REPORT -------- Dictated By: Allyn Garcia Dictated Date: 09/18/2024 03:42 ET Assigned Physician: Allyn Garcia Reviewed and Electronically Signed By: Allyn Garcia Signed Date: 09/18/2024 04:16 ET Workstation ID: [id number] Transcribed By: Self Edit Transcribed Date: 09/18/2024 03:42 ET Karthikeyan Chin MD IMG NM PROCEDURES Final Result from Last 3 Months Insurance MEDICARE MEDICAID - [place]
--- OUTSIDE RECORDS SUMMARY | 2024-09-27 06:38 | XMS_ITS ---
Author Organization [facility] Address [address] [place] [address] Care Team Providers Care Fabrication Lead Name Role Phone Harrison Tucker MD Primary Care Provider Unavaila Mark Gabriel Unavailable [phone] Encounters Encounter Location Date Provider Diagnosis [facility] [address] [place] [address] 08/26/2024 Mark Combs Plan Of Treatment No Information Progress Notes * LEONID DON SDOB:1955 (69 yo M)Acc No.[id number]:08/26/2024 Patient:?LEONID DON :1955???Age:69 Y???Sex:Male Address:[address] [place], [address] * * Date:?
--- OUTSIDE RECORDS SUMMARY | 2024-09-27 06:38 | XMS_ITS ---
Author Organization [facility] Address [address] [place] [address] Care Team Providers Care Audit Mgr Name Role Phone Caitlin AUSTIN, Harrison Primary Care Provider Unavaila Mark Gabriel Unavailable [phone] REASON FOR VISIT screening,hx polyps, gerd Encounters Encounter Location Date Provider Diagnosis [facility] [address] [place] [phone] 06/06/2024 Mark Combs Plan Of Treatment No Information Progress Notes * LEONID DON SDOB:1955 (69 yo M)Acc No.[id number]:06/06/2024 EGD and COL/MAC Patient:?LEONID DON Provider:?Mark Combs MD :1955???Age:69 Y???Sex:Male Emeterio e:06/06/2024 Address:[address] , [place] Pcp:Harrison Tucker MD Subjective: * Chief Complaints: [...] MD Date:? 024 Generated for Printi ng/Faxing/eTransmitting on:?09/27/2024 06:38 AM EDT
--- OUTSIDE RECORDS SUMMARY | 2024-09-27 06:38 | XMS_ITS | Patient Health Record ---
Author Organization [facility] Address [address] [place] [address] Care Team Providers Care Business Systems Architect Name Role Phone Harrison Tucker MD Primary Care Provider Mark Vinson Unavailable [phone] Allergies Allergen (clinical drug ingredient) Drug/Non Drug Allergy documented on EMR Reaction Allergy Type Onset Date Status atorvastatin Atorvastatin Calcium muscle pain Drug Allergy Active Results Component Value Reference Range Notes US abdominal aortic aneurysm (Not yet reviewed by provider) Interpretation: Performing Lab: Notes/Report: [address] [address] Ultrasound Report Signed Patient: Juan Arango MR#: [id number] : 1955 Acct:[id number] Age/Sex: 69 / M ADM Date: 06/05/24 Loc: . Attending Dr: Mark Combs MD Ordering Physician: Mark Combs MD Date of Service: 06/05/24 Procedure(s): US abdominal aortic aneurysm Accession Number(s): [id number] cc: Harrison Tucker MD; Mark Combs MD [...] by: Payton Potter MD 06/05/2024 10:15 AM [facility] Dictated By: Payton Potter MD Signed By: <Electronically signed by Payton Potter MD in OV> 06/05/24 1015 DD/ 0820 TD/TT: 06/05/24 0846 Car Repairer [place]: [place] [id number] Ultrasound Report Signed Patient: Juan Arango MR#: [id number] : 1955 Acct:[id number] Age/Sex: 69 / M ADM Date: 06/05/24 Loc: HO.US Attending Dr: Mark Combs MD Ordering Physician: Mark Combs MD Date of Service: 06/05/24 Procedure(s): US abd ominal aortic aneurysm Accession Number(s): [id number] cc: Harrison Tucker MD; Mark Combs MD [...] by: Payton Potter MD 06/05/2024 10:15 AM [facility] Dictated By: Payton Potter MD Signed By: <Wes teresa signed by Payton Potter MD in OV> 06/05/24 1015 DD/ 0820 TD/TT: 06/05/24 0846 Car Repairer [place]: Reason For Referral No Information Medications Medication SIG (Take, Route, Frequency, Duration) Notes Start Date End Date Status Omeprazole 20 MG TAKE 1 CAPSULE BY [facility] EVERY MORNING for 30 Active Aspir-81 [...] Problem Status W/U Status Risk Notes Problem 101765081 Encounter for screening for malignant neoplasm of colon (Z12.11) Active confirmed Problem History of adenomatous polyp of colon (983073786) History of adenomatous polyp of colon (Z86.010) Active confirmed Problem Diarrhea (77226372) Diarrhea (R19.7) Active con firmed Problem Screening for malignant neoplasm of rectum (035991160) Encounter for screening for malignant neoplasm of rectum (Z12.12) Active confirmed Problem 125728838 Gallstones (K80.20) Active confirmed Problem 453010668 Long-term use of aspirin therapy (Z79.82) Active confirmed Problem 808393546 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) Active confirmed Problem Gastroesophageal reflux disease (265672362) GERD without esophagitis (K21.9) Active confirmed Problem 5604159 Chronic gastriti s without bleeding, unspecified gastritis type (K29.50) Active confirmed Problem 53779346 Globus sensation (F45.8) Active confirmed Problem 60539996 Globus pharyngeu s (F45.8) Active confirmed Problem Abdominal aortic aneurysm without rupture (disorder) (90421597) Abdominal aortic aneurysm, without rupture, unspecified (I71.40) Active confirmed Problem Gastroesophageal reflux disease (disorder) (177354485) Chronic GERD (K21.9) Active confirmed Vital Signs Blood pressure diastolic 00 mm Hg 02/23/2024 Height 70 in 02/23/2024 Blood pressure systolic 00 mm Hg 02/23/2024 Weight 181 lbs 02/23/2024 BMI 25.97 kg/m2 02/23/2024 Encounters Encounter Location Date Provider Diagnosis [facility] [address] [place] [address] 02/23/2024 Mark Combs Encounter for screening for malignant neoplasm of colon Z12.11 ; Diarrhea R19.7 ; Long-term use of aspirin therapy Z79.82 ; History of adenomatous polyp of colon Z86.010 and GERD without esophagitis K21.9 [facility] [address] [facility] [place] [address] 08/26/2024 Mark Combs [facility] [address] [place] [address] 10/17/2023 Mark Combs [facility] [address] [place] [address] 05/31/2024 Mark Combs Chronic GERD K21.9 [facility] [address] [place], [place] [address] [address] 06/05/2024 Mark Combs [facility] [address] [place], [place] [address] [address] 06/05/2024 Mark Combs Abdominal aortic aneurysm, without rupture, unspecified I71.40 [facility] [address] [place], [place] [address] [address] 06/05/2024 Mark Combs Assessments Encounter Date Diagnosis [...] - R19.7) Switch to Lactose-free milk like Forest milk, etc Overall, Juan appears well. I [...] Start Date Coverage End Date MEDICARE OF [place] [address] [place] [address] [id number] LAVONNE ARANGOY Self - patient is the insured MEDICAID OF [facility] [address] [place] [phone] [id number] LAVONNE ARANGOY Self - patient is the insured Medical (General) History Medical History History ICD Code Heart attack 09/11/2015--2 st ents--at [facility]--fine since then--sees Dr. Francisco at [facility] Arthritis in spine Abdominal aortic aneurysm Negative colonoscopy > 10 yr s ago [place] [facility]--he describes the finding of hemorrhoids Denies DM,CVA,Lung disease,renal disease Gallstones-asymptomatic Colonoscopy 10/2016--2 tubular adenomas r emoved EGD in 07/2018--erosive gastr itis, bx neg for Hpylori; AVM's nonbleeding; no esophagitis Surgical History Surgery Date(Month/Year) Cervical spondylosis 1998 Appendectomy 1963 Cataract surgery bilateral
[2024-10-05 15:41] VITALS: BMI 26.5
--- NOTE | 2024-10-09 09:34 | HO.ANESPROP2 ---
Documented by User: Denisse Talley NP 10/09/24 09:48 HPI - Anesthesia Eval Consult details Narrative: 69yo M for Endoscopic Bronchial Ultrasound s/p AAA repair 09/28/24 (FEVAR with bilat renal stents) - per workloads, vascular ok'd holding plavix Follows [facility] for CAD s/p GA/stents 2015 [facility] Active Problems Active Problems: All Active Problems Personal history of tobacco use (Acute) COPD (chronic obstructive pulmonary disease) (Acute) Lung mass (Acute) Hemoptysis (Acute) Coronary artery disease (Acute) Chronic GERD (Acute) Hypertension (Acute) AAA (abdominal aortic aneurysm) (Acute) Elevated cholesterol (Acute) Past Medical History Medical History (Updated 10/05/24 @ 15:49 by Noelle Rios RN) HTN (hypertension) GERD (gastroesophageal reflux disease) Emphysema, unspecified Wears dentures Arthritis AAA (abdominal aortic aneurysm) Myocardial infarction Elevated cholesterol CAD (coronary artery disease) Family History Family History Other Substance use disorder Surgical History Surgical History (Updated 10/05/24 @ 15:40 by Noelle Rios RN) History of AAA (abdominal aortic aneurysm) repair (09/28/24) History of esophagogastroduodenoscopy (EGD) H/O colonoscopy Hx of heart artery stent History of cataract surgery History of ear surgery History of neck surgery History of appendectomy Social History Social History [facility] Are you a primary interior plant caretaker to a significant other at home: No Do you presently have visiting nurse or other home services: No Alcohol intake: current Alcohol intake frequency: holidays/special occasions only Alcohol type: wine Patient Tobacco Use Status: Former Tobacco user Tobacco use type: Cigarette Cigarette Packs Per Day: 1.5 Years Smoked: 45 e-Cigarette/Vaping Use: Never Used Second Hand Smoke Exposure: No Use of substances other than those prescribed or required for medical reasons: Yes Substance Use Type: Marijuana Substance Use Frequency: Daily Have you been hit, kicked, punched, or otherwise hurt by someone within the past year? If so, by whom?: No Are you DNR?: No Advance Directives: No Advance Directives Information Provided: Yes Advance Directives on File: No service: No Current occupational status: employed Cognitive needs: No Hearing needs: No Vision needs: No Meds Allergies Allergy/AdvReac Type Severity Reaction Status Date / Time Rsztizj-UEH-WyM Reductase Allergy Mild Muscle Pain Verified 10/10/24 08:32 Inhibitor [PKJVTAB-HGF-TTT REDUCTASE INHIBITOR] Home Medications ?Medication ?Instructions ?Recorded ?Confirmed ?Last Taken ?Type aspirin 81 mg chewable tablet 81 mg PO DAILY 01/15/22 10/05/24 10/10/24 History omeprazole 20 mg capsule,delayed 20 mg PO DAILY 01/18/23 10/05/24 Unknown History release metoprolol succinate 50 mg 50 mg PO DAILY 09/06/24 10/05/24 10/10/24 History tablet,extended release 24 hr Exam Height,Weight and Vital Signs: Height 5 ft 10 in Weight 83.915 kg Pertinent Lab Results Pertinent Lab Results: BLOOD COUNT & DIFF ? ? Event Name? Event Result? Date/Time? WBC 11.9 k/mm3?High 09/29/24 01:47:00 RBC 4.14 m/mm3?Low 09/29/24 01:47:00 Hgb 11.7 Gm/dL?Low 09/29/24 01:47:00 Hct 35 %?Low 09/29/24 01:47:00 MCV 84.5 femtoliters 09/29/24 01:47:00 MCH 28.3 pg 09/29/24 01:47:00 MCHC 33.4 Gm/dL 09/29/24 01:47:00 Platelet Count 239 k/mm3 09/29/24 01:47:00 MPV 10.8 femtoliters 09/29/24 01:47:00 Nucleated RBC (Automated) 0 #/100 WBC'S 09/29/24 01:47:00 ? CHEM GENERAL ? ? Event Name? Event Result? Date/Time? Sodium 140 mmol/L 09/29/24 01:47:00 Chloride 106 mmol/L 09/29/24 01:47:00 Bicarbonate Level 23 mmol/L 09/29/24 01:47:00 Anion Gap 11 mmol/L 09/29/24 01:47:00 Glucose Level 236 mg/dL?High 09/29/24 01:47:00 BUN 19 mg/dL 09/29/24 01:47:00 Creatinine-Blood 1.03 mg/dL 09/29/24 01:47:00 Calcium, Ionized pH Corrected 1.14 mmol/L 09/29/24 01:47:00 Phosphorus 2.1 mg/dL?Low 09/29/24 01:47:00 Magnesium 2.1 mg/dL 09/29/24 01:47:00 Narrative Narrative: EKG 08/2024 [id number] Ventricular Rate: 60 BPM Atrial Rate: 60 BPM P-R Interval: 160 ms QRS Duration: 92 ms Q-T Interval: 404 ms QTC Calculation(Bazett): 404 ms P [place]: 30 degrees R [place]: 41 degrees T [place]: 78 degrees Normal sinus rhythm T wave abnormality, consider anterolateral ischemia Abnormal ECG When compared with ECG of 14-Oct-2022 13:51, T wave inversion now evident in Anterior leads Confirmed by ELISA LEONE MD ([id number]) on 09/17/2024 10:15:53 AM Assessment and Plan Assessment Anesthesia Assessment: Chart Reviewed Documented by User: Clover Muñoz MD 10/10/24 09:23 [facility] Past Medical History Medical History (Updated 10/05/24 @ 15:49 by Noelle Rios RN) HTN (hypertension) GERD (gastroesophageal reflux disease) Emphysema, unspecified Wears dentures Arthritis AAA (abdominal aortic aneurysm) Myocardial infarction Elevated cholesterol CAD (coronary artery disease) Family History Family History Other Substance use disorder Family history of problems with anesthesia: No Surgical History Surgical History (Updated 10/05/24 @ 15:40 by Noelle Rios, LONG) History of AAA (abdominal aortic aneurysm) repair (09/28/24) History of esophagogastroduodenoscopy (EGD) H/O colonoscopy Hx of heart artery stent History of cataract surgery History of ear surgery History of neck surgery History of appendectomy History of Problems with Anesthesia: No Social History Social History Housing: Condominium Are you a primary interior plant caretaker to a significant other at home: No Do you presently have visiting nurse or other home services: No Alcohol intake: current Alcohol intake frequency: holidays/special occasions only Alcohol type: wine Patient Tobacco Use Status: Former Tobacco user Tobacco use type: Cigarette Cigarette Packs Per Day: 1.5 Years Smoked: 45 e-Cigarette/Vaping Use: Never Used Second Hand Smoke Exposure: No Use of substances other than those prescribed or required for medical reasons: Yes Substance Use Type: Marijuana Substance Use Frequency: Daily Have you been hit, kicked, punched, or otherwise hurt by someone within the past year? If so, by whom?: No Are you DNR?: No Advance Directives: No Advance Directives Information Provided: Yes Advance Directives on File: No service: No Current occupational status: employed Cognitive needs: No Hearing needs: No Vision needs: No Meds Allergies Allergy/AdvReac Type Severity Reaction Status Date / Time Rivmpzl-KPF-QmS Reductase Allergy Mild Muscle Pain Verified 10/10/24 08:32 Inhibitor [KMIQCPW-CUB-UKG REDUCTASE INHIBITOR] Home Medications ?Medication ?Instructions ?Recorded ?Confirmed ?Last Taken ?Type aspirin 81 mg chewable tablet 81 mg PO DAILY 01/15/22 10/05/24 10/10/24 History omeprazole 20 mg capsule,delayed 20 mg PO DAILY 01/18/23 10/05/24 Unknown History release metoprolol succinate 50 mg 50 mg PO DAILY 09/06/24 10/05/24 10/10/24 History tablet,extended release 24 hr Exam Airway Mallampati Class: II (bottom front loose tooth, aware might loose it) TM Dist: >3cm Neck ROM: Full Denture: Upper Heart: rrr Lungs: cta Assessment and Plan Assessment Anesthesia Assessment: Anesthesia Plan Discussed Final Anesthetic Review Family History of Problems with Anesthesia: No History of Problems with Anesthesia: No NPO: Yes ASA Class: III Final Preanesthetic Review: No Changes in Pt Med Stat, Meds/Allgs Chart Reviewed and Consent Obtained/Reviewed Patient Risk: Intermediate Procedure Risk: Intermediate Anesthetic Plan Anesthetic Plan: GA Disposition: Standard PACU
[2024-10-10 08:44] VITALS: BP 133/76; PULSE 62; RESP 18; TEMP 36.4; O2SAT 98; BMI 25.5
--- NOTE | 2024-10-10 08:56 | MHC.SHP ---
Pre-Procedural Eval Section A - 24 Hr Update-Section A only Date of Service: 10/10/24 The patient is an INPATIENT: No Changes since office visit: Yes Patient answered all questions; No Cold of Flu in the past 2 weeks, No New Medical Problems and No Changes in Medication Section B - Complete if H&P > 30 days Chief Complaint: Other nonspecific abnormal finding of lung field Allergies: Allergies Allergy/AdvReac Type Severity Reaction Status Date / Time Saquaxy-RVR-NsN Reductase Allergy Mild Muscle Pain Verified 10/10/24 08:32 Inhibitor [RQNJPHC-XNI-SON REDUCTASE INHIBITOR] Exam Surgical H&P Exam: Normal: HEENT, Normal: Heart, Normal: Lungs, Normal: Extremities, Normal: Abdomen, Normal: Skin and Normal: Neurological Plan Diagnosis/Plan: Unchanged I have reviewed the history and physical and performed a pertinent physical examination on my patient. No changes have occurred unless specified. Time Spent With Patient Time: Total time managing care of this patient today ____ minutes.
[2024-10-10] MEDS: Lactated Ringers 1,000 ML 100 ML IVCONT (09:07)
--- NOTE | 2024-10-10 10:44 | P.BOP_ITS ---
Brief Operative Note Date of Service: 10/10/24 Pre-op diagnosis: Lung cancer Post-op diagnosis: same Procedure: EBUS bronchoscope advanced through the ET tube with patient intubated for the procedure and through tracheobronchial tree with no endobronchial lesions or abnormal mucosa noted. Thereafter, endoscopic ultrasound guided biopsy of stations 7 and 11 L with 3 and 4 passes respectively performed with biopsy material sent for pathologic evaluation. Both biopsy site observed and no active bleeding noted. Patient was returned to PACU in stable condition. Surgeon: Karthikeyan Chin MD Anesthesia: GETA Was an Lead Man Over All [employer] In Pattern [employer] used for this Procedure?: No Estimated blood loss (mL): 0
[2024-10-10 10:50] VITALS: BP 132/68; PULSE 74; RESP 18; TEMP 36.1; O2SAT 97
[2024-10-10 10:55] VITALS: BP 127/69; PULSE 72; RESP 18; O2SAT 97
[2024-10-10 11:00] VITALS: BP 122/68; PULSE 69; RESP 16; O2SAT 95
[2024-10-10 11:05] VITALS: BP 116/75; PULSE 63; RESP 16; O2SAT 97
[2024-10-10 11:20] VITALS: BP 127/67; PULSE 66; RESP 16; TEMP 36.1; O2SAT 98
== END 2024-10-10 12:12 | disposition home or self-care (01) ==
PROVIDERS: PCP Internal Medicine; Visit Provider Internal Medicine Pulmonary Disease
PROC: (CPT 31652; principal; 2024-10-10 10:00)
DX: C78.02 Secondary malignant neoplasm of left lung (principal); J44.9 Chronic obstructive pulmonary disease, unspecified; R04.2 Hemoptysis; R53.83 Other fatigue; I10 Essential (primary) hypertension; Z87.891 Personal history of nicotine dependence; E78.00 Pure hypercholesterolemia, unspecified; I25.10 Atherosclerotic heart disease of native coronary artery without angina pectoris; Z95.5 Presence of coronary angioplasty implant and graft; I25.2 Old myocardial infarction; I71.40 Abdominal aortic aneurysm, without rupture, unspecified; K21.9 Gastro-esophageal reflux disease without esophagitis; Z79.82 Long term (current) use of aspirin; Z79.899 Other long term (current) drug therapy; Z88.8 Allergy status to other drugs, medicaments and biological substances; Z98.890 Other specified postprocedural states
CPT/HCPCS: 31652; 88172; 88173; 88177; 88305; 88341; 88342; J0171; J2003; J2250; J2704; J3010

== ENCOUNTER → 2024-10-10 07:42 | Outpatient (BNV) | payer MEDICARE, MEDICAID, SELFPAY | PROVIDERS: PCP Internal Medicine; Visit Provider Internal Medicine Pulmonary Disease | DX: R91.8 Other nonspecific abnormal finding of lung field (principal) | CPT/HCPCS: 31652 ==

== ENCOUNTER 2024-10-17 09:33 | Outpatient (AMB) | payer MEDICARE, MEDICAID, SELFPAY ==
[2024-10-17 09:40] VITALS: BP 116/68; PULSE 71; O2SAT 98; BMI 25.8
--- NOTE | 2024-10-17 09:40 | MHC.OFFVIS ---
Vital Signs 10/17/24 09:40 Height 5 ft 10 in Weight 180 lb BMI 25.8 BP 116/68 Blood Pressure Location Rt brachial Position Sitting Pulse 71 Pulse Source Pulse Oximeter Pulse Oximetry (%) 98 Oxygen Delivery Method Room Air Intake Visit Reasons: COPD Tractor Sweeper Driver Required: No Wheel Buffer: Wheel Buffer offered & declined Accompanied by: Self / Same As Patient Allergies Fmhbdjq-ZKJ-QzT Reductase Inhibitor [OPIXBSG-CBZ-XXW REDUCTASE INHIBITOR] Allergy (Mild, Verified 10/17/24 09:44) Muscle Pain Medication List - Last Reconciled 10/17/24 by Xochilt Abdullahi LPN aspirin 81 mg PO DAILY ezetimibe 10 mg PO DAILY metoprolol succinate ER 50 mg PO DAILY omeprazole 20 mg PO DAILY sildenafil (Viagra) 50 mg PO DAILY PRN HPI HPI COPD: Details: Juan is a pleasant 69 year old male, former smoker, quit 2015 with approximately 67 pack year history with underlying h/o ME s/p bare meal stents 2015 on ASA, AAA 6.5 cm s/p repair 09/2024 on Plavix, GERD, HTN and CAD. He was initially referred by PCP after recent abnormal chest CT 09/09/24 which revealed 5.5 cm x 6.6 cm x 4.1cm left lower lung mass. PET 09/14/24 revealed FDG activity left lung mass, SUV 7.8 as well as left hilar lymphadenopathy, SUV max 5.8. On 10/10/[address] Chin pathology came back revealing positive for malignancy, consistent with metastatic lung non-small cell carcinoma. Today he presents to review pathology results. Since the last visit, he had AAA repaired through [facility] and has been recovering quite well. He did need to stop his Plavix for EBUS and has upcoming abdominal CT scheduled through [facility] to assess stent. He has upcoming PFTs scheduled on November 01. [facility] Medical History (Updated 10/17/24 @ 12:46 by Shelby Colvin NP) HTN (hypertension) GERD (gastroesophageal reflux disease) Emphysema, unspecified Wears dentures Arthritis AAA (abdominal aortic aneurysm) Myocardial infarction Elevated cholesterol CAD (coronary artery disease) Surgical History (Updated 10/05/24 @ 15:40 by Noelle Rios RN) History of AAA (abdominal aortic aneurysm) repair (09/28/24) History of esophagogastroduodenoscopy (EGD) H/O colonoscopy Hx of heart artery stent History of cataract surgery History of ear surgery History of neck surgery History of appendectomy Family History Other Substance use disorder Social History [facility] Are you a primary hearing care professional to a significant other at home: No Do you presently have visiting nurse or other home services: No Alcohol intake: current Alcohol intake frequency: holidays/special occasions only Alcohol type: wine Patient Tobacco Use Status: Former Tobacco user Tobacco use type: Cigarette Cigarette Packs Per Day: 1.5 Years Smoked: 45 e-Cigarette/Vaping Use: Never Used Second Hand Smoke Exposure: No Substance Use Type: Marijuana service: No Current occupational status: employed Cognitive needs: No Hearing needs: No Vision needs: No Review of Systems Const Denies chills, Denies excessive sweating, Denies fever(s), Denies headache(s) and Denies night sweats Eyes Denies dry eyes, Denies irritation and Denies itchy eyes ENT Reports Normal hearing present, Denies headache(s), Denies nasal congestion, Denies nasal discharge, Denies post nasal drip and Denies sore throat Card Denies chest pain, Denies chest pain at rest, Denies chest pain with activity, Denies claudication, Denies leg edema, Reports dyspnea on exertion, Denies orthopnea and Denies paroxysmal nocturnal dyspnea Resp Denies chest congestion, Reports cough, Reports hemoptysis, Denies excessive phlegm production, Denies pain on inspiration, Denies pain with cough, Reports dyspnea on exertion, Denies stridor and Reports wheezing Musc Denies myalgias Neuro Reports Normal hearing present and Denies headache(s) Endo Denies excessive sweating Rush/Lymph Denies lymphadenopathy Aller/Immun Denies itchy eyes, Denies seasonal rhinorrhea and Reports wheezing Physical Exam Vital Signs: Last Vital Signs Pulse 71 10/17/24 09:40 BP 116/68 10/17/24 09:40 Pulse Ox 98 10/17/24 09:40 Oxygen Delivery Method Room Air 10/17/24 09:40 BMI result Body Mass Index 25.8 Const General: cooperative, healthy appearing, comfortable, no acute distress, well developed and alert Orientation/consciousness: patient oriented x3 Limitations: no limitations HEENT Head: Yes normal to inspection, Yes normocephalic and Yes atraumatic Ears: hearing grossly normal bilaterally and external ears normal Eyes General: appearance normal, both eyes and all related structures Eyelids: Yes eyelids normal Sclerae: sclerae normal EOM: EOMs intact bilaterally Neck Neck: Yes normal visual inspection and Yes no lymphadenopathy Lymphatic: no lymphadenopathy noted Chest Chest palpation & inspection: normal inspection of the chest Resp Effort & Inspection: normal respiratory effort, able to speak in complete sentences, no audible wheezes, no cough, no stridor, not tachypneic, no tripod positioning and no use of accessory muscles Auscultation: clear to auscultation bilaterally Cardio Jugular venous distension: no JVD Rate: regular rate Rhythm: regular rhythm Skin Other: warm, dry General skin exam: no rashes or lesions noted Neuro General: patient oriented x3 Cranial nerves: Yes Normal hearing present Cognition (Neuro): normal cognition Gait exam (Neuro): Normal gait present Extrem General: Yes normal to inspection, Yes capillary refill normal, Yes no clubbing, cyanosis or edema and Yes no pedal edema Psych Appearance: grossly normal and well kempt Speech and movement: Normal speech and movement present and Clear speech present Affect: normal affect Attitude: cooperative Thought process: Normal thought process present Thought content: Normal thought content present Insight: Good insight present (Psych) Judgement: Good judgement present (Psych) Assessment & Plan Assessment & Plan (1) Non-small cell cancer of left lung: Code(s): C34.92 - Malignant neoplasm of unspecified part of left bronchus or lung Category: Medical (2) Lung mass: Code(s): R91.8 - Other nonspecific abnormal finding of lung field Category: Medical (3) Hemoptysis: Code(s): R04.2 - Hemoptysis Category: Medical (4) COPD (chronic obstructive pulmonary disease): Code(s): J44.9 - Chronic obstructive pulmonary disease, unspecified Category: Medical (5) Personal history of tobacco use: Code(s): Z87.891 - Personal history of nicotine dependence Category: Social Hx Plan Discussed findings of pathology with Juan which revealed malignancy, consistent with metastatic lung non-small cell carcinoma. He is aware he will be referred to oncology and thoracic surgery through [facility] for further evaluation and treatment. He continues to report dyspnea, wheezing and cough with hemoptysis. Will send Juan, offered cough suppressant however patient deferred at this time. He is scheduled for PFT to assess severity of COPD. All questions were answered and patient is in agreement of plan. Will follow up in 6-8 weeks or sooner if needed. Orders: Referrals Hematology & Oncology Referral C34.92 - Malignant neoplasm of unspecified part of left bronchus or lung, R04.2 - Hemoptysis, R91.8 - Other nonspecific abnormal finding of lung field Thoracic/General Surgery Referral C34.92 - Malignant neoplasm of unspecified part of left bronchus or lung, R04.2 - Hemoptysis, R91.8 - Other nonspecific abnormal finding of lung field Medications: New fluticasone furoate-vilanterol 200-25 mcg/dose (Breo Ellipta) 1 inh inhalation DAILY 60 ea 3RF Coding Level of Care Code Est Pt Level 4 (35765) Complex EM visit Add On G2211 Diagnoses Non-small cell cancer of left lung C34.92 Lung mass R91.8 Hemoptysis R04.2 COPD (chronic obstructive pulmonary disease) J44.9 Personal history of tobacco use Z87.895
--- OUTSIDE RECORDS SUMMARY | 2024-10-17 10:19 | XMS_ITS | Clinical Summary ---
Author Organization [facility] Address [address] [place] [address] Phone Care Team Providers Care Job Molder Name Role Phone Unavailable Primary Care Provider Unavailabl e Encounters Date Type Department Care Team Description 09/14/2024 7:17 AM EDT - 09/14/2024 11:59 PM EDT Hospital Encounter [facility] PET Scan [address] [place] [address] Other nonspecific abnormal finding of [...] 09/14/2024 Social Influencers of Health Screening 09/14/2024 COVID-19 Vaccine ( season) 2025 09/08/2024, 06/25/2023, 05/27/2022, Additional history exists DTaP,Tdap,and Td Vaccines (2 - Td or Tdap) 02/12/2029 02/12/2019 Zoster Vaccines Completed 12/26/2018, 10/22/2018 Influenza Vaccine Completed 09/08/2024, , 05/27/2022 HIB [...] Signed Date: 09/18/2024 04:16 ET Workstation ID: [id number] Transcribed By: Self Edit Transcribed Date: 09/18/2024 [...] Signed Date: 09/18/2024 04:16 ET Workstation ID: [id number] Transcribed By: Self Edit Transcribed Date: 09/18/2024 03:42 ET Karthikeyan Chin MD IMG NM PROCEDURES Final Result from Last 3 Months Insurance MEDICARE [place]ICAID - [place]
== END 2024-10-17 10:42 | disposition home or self-care (01) ==
LOC: HO.HPSW 09:34
PROVIDERS: PCP Internal Medicine; Visit Provider Nurse Practitioner Family
DX: C34.92 Malignant neoplasm of unspecified part of left bronchus or lung (principal); R91.8 Other nonspecific abnormal finding of lung field; R04.2 Hemoptysis; J44.9 Chronic obstructive pulmonary disease, unspecified; Z87.891 Personal history of nicotine dependence
CPT/HCPCS: 99214; G2211

== ENCOUNTER → 2024-10-17 09:33 | Outpatient (BNVA) | payer MEDICARE, MEDICAID, SELFPAY | PROVIDERS: PCP Internal Medicine; Visit Provider Nurse Practitioner Family | DX: C34.92 Malignant neoplasm of unspecified part of left bronchus or lung (principal); R91.8 Other nonspecific abnormal finding of lung field; R04.2 Hemoptysis; J44.9 Chronic obstructive pulmonary disease, unspecified; Z87.891 Personal history of nicotine dependence | CPT/HCPCS: 99212 ==

== ENCOUNTER 2024-11-01 07:03 | Outpatient (REF) | payer MEDICARE, MEDICAID, SELFPAY ==
--- OUTSIDE RECORDS SUMMARY | 2024-11-01 07:05 | XMS_ITS | Clinical Summary ---
Author Organization [facility] Address [address] [place] [address] Phone Care Team Providers Care Preform Machine Operator Name Role Phone Unavailable Primary Care Provider Unavailabl e Encounters Date Type Department Care Team Description 09/14/2024 7:17 AM EDT - 09/14/2024 11:59 PM EDT Hospital Encounter [facility] PET Scan [address] [place] [address] Other nonspecific abnormal finding of [...] Years (1 of 1 - PCV) 02/01/2006 Cholesterol Screening (Lipid Panel) 09/14/2024 Colorectal Cancer Screening: Colonoscopy 09/14/2024 Depression Screening 09/14/2024 Falls Risk Assessment 09/14/2024 Hepatitis C Screening 09/14/2024 Medicare Annual Wellness Visit 09/14/2024 Social Influencers of Health Screening 09/14/2024 COVID-19 Vaccine ( season) 2025 09/08/2024, 06/25/2023, 05/27/2022, Additional history exists DTaP,Tdap,and Td Vaccines (2 - Td or Tdap) 02/12/2029 02/12/2019 RSV Immunization Adult Patients (1 - 1-dose 75+ series) 02/01/2031 Zoster Vaccines Completed 12/26/2018, 10/22/2018 Influenza Vaccine [...] Signed Date: 09/18/2024 04:16 ET Workstation ID: [id number] Transcribed By: Self Edit Transcribed Date: 09/18/2024 [...] Signed Date: 09/18/2024 04:16 ET Workstation ID: [id number] Transcribed By: Self Edit Transcribed Date: 09/18/2024 03:42 ET Karthikeyan Chin MD IMG NM PROCEDURES Final Result from Last 3 Months Insurance MEDICARE [place] - [place]
--- OUTSIDE RECORDS SUMMARY | 2024-11-01 07:05 | XMS_ITS ---
Author Organization [facility] Address [address] [place] [address] Care Team Providers Care Tour Sales Representative Name Role Phone Caitlin AUSTIN, Harrison Primary Care Provider Unavaila Mark Gabriel Unavailable [phone] REASON FOR VISIT screening,hx polyps, gerd Encounters Encounter Location Date Provider Diagnosis [facility] [address] [place] [phone] 06/06/2024 Mark Combs Plan Of Treatment No Information Progress Notes * LEONID DON SDOB:1955 (69 yo M)Acc No.[id number]:06/06/2024 EGD and COL/MAC Patient:?LEONID DON Provider:?Mark Combs MD :1955???Age:69 Y???Sex:Male Emeterio e:06/06/2024 Address:[address] , [id number] Pcp:Harrison Tucker MD Subjective: * Chief Complaints: [...] MD Date:? 024 Generated for Printi ng/Faxing/eTransmitting on:?11/01/2024 07:05 AM EDT
--- OUTSIDE RECORDS SUMMARY | 2024-11-01 07:05 | XMS_ITS ---
Author Organization [facility] Address [address] [place] [address] Care Team Providers Care Slip Cover Sewer Name Role Phone Harrison Tucker MD Primary Care Provider Maria Luisaa Mark Gabriel Unavailable [phone] Encounters Encounter Location Date Provider Diagnosis [facility] [address] [place] [phone] 06/05/2024 Mark Combs Plan Of Treatment No Information Progress Notes * LEONID DON SDOB:1955 (69 yo M)Acc No.[id number]:06/05/2024 Patient:?LEONID DON :1955???Age:69 Y???Sex:Male Address:[address] [place], [address] * true * Date:? Generated for Printi ng/Ashantig/eTransmitting on:?11/01/2024 07:05 AM EDT
--- OUTSIDE RECORDS SUMMARY | 2024-11-01 07:05 | XMS_ITS ---
Author Organization [facility] Address [address] [place] [address] Care Team Providers Care Director Talent Name Role Phone Harrison Tucker MD Primary Care Provider Maria Luisaa Mark Gabriel Unavailable [phone] Encounters Encounter Location Date Provider Diagnosis [facility] [address] [place] [phone] 08/26/2024 Mark Combs Plan Of Treatment No Information Progress Notes * LEONID DNO SDOB:1955 (69 yo M)Acc No.[id number]:08/26/2024 Patient:?LEONID DON :1955???Age:69 Y???Sex:Male Address:[address] [place], [address] * true * Date:? Generated for Printi ng/Ashantig/eTransmitting on:?11/01/2024 07:05 AM EDT
--- OUTSIDE RECORDS SUMMARY | 2024-11-01 07:06 | XMS_ITS | Patient Health Record ---
Author Organization [facility] Address [address] [place] [address] Care Team Providers Care Alligator Hunter Name Role Phone Harrison Tucker MD Primary Care Provider Mark Vinson Unavailable [phone] Allergies Allergen (clinical drug ingredient) Drug/Non Drug Allergy documented on EMR Reaction Allergy Type Onset Date Status atorvastatin Atorvastatin Calcium muscle pain Drug Allergy Active Results Component Value Reference Range Notes US abdominal aortic aneurysm (Not yet reviewed by provider) Interpretation: Performing Lab: Notes/Report: [address] [address] Ultrasound Report Signed Patient: Juan Arango MR#: [id number] : 1955 Acct:[id number] Age/Sex: 69 / M ADM Date: 06/05/24 Loc: . Attending Dr: Mark Combs MD Ordering Physician: Mark Combs MD Date of Service: 06/05/24 Procedure(s): US abdominal aortic aneurysm Accession Number(s): [id number] cc: Harrison Tucker MD; Mark Combs MD [...] by: Payton Potter MD 06/05/2024 10:15 AM [facility] Dictated By: Payton Potter MD Signed By: <Electronically signed by Payton Potter MD in OV> 06/05/24 1015 DD/ 0820 TD/TT: 06/05/24 0846 Drawing Frame Tender: [place] [address] Ultrasound Report Signed Patient: Juan Arango MR#: [id number] : 1955 Acct:[id number] Age/Sex: 69 / M ADM Date: 06/05/24 Loc: HO.US Attending Dr: Mark Combs MD Ordering Physician: Mark Combs MD Date of Service: 06/05/24 Procedure(s): US abd ominal aortic aneurysm Accession Number(s): [id number] cc: Harrison Tucker MD; Mark Combs MD [...] by: Payton Potter MD 06/05/2024 10:15 AM [facility] Dictated By: Payton Potter MD Signed By: <Wes teresa signed by Payton Potter MD in OV> 06/05/24 1015 DD/ 0820 TD/TT: 06/05/24 0846 Drawing Frame Tender: Reason For Referral No Information Medications Medication SIG (Take, Route, Frequency, Duration) Notes Start Date End Date Status Omeprazole 20 MG TAKE 1 CAPSULE BY [facility] EVERY MORNING for 30 Active Aspir-81 [...] Problem Status W/U Status Risk Notes Problem 617398208 Encounter for screening for malignant neoplasm of colon (Z12.11) Active confirmed Problem History of adenomatous polyp of colon (532164678) History of adenomatous polyp of colon (Z86.010) Active confirmed Problem Diarrhea (88884314) Diarrhea (R19.7) Active con firmed Problem Screening for malignant neoplasm of rectum (561234543) Encounter for screening for malignant neoplasm of rectum (Z12.12) Active confirmed Problem 432991047 Gallstones (K80.20) Active confirmed Problem 730649964 Long-term use of aspirin therapy (Z79.82) Active confirmed Problem 578866844 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) Active confirmed Problem Gastroesophageal reflux disease (576310797) GERD without esophagitis (K21.9) Active confirmed Problem 5936377 Chronic gastriti s without bleeding, unspecified gastritis type (K29.50) Active confirmed Problem 05313095 Globus sensation (F45.8) Active confirmed Problem 21020365 Globus pharyngeu s (F45.8) Active confirmed Problem Abdominal aortic aneurysm without rupture (disorder) (32042883) Abdominal aortic aneurysm, without rupture, unspecified (I71.40) Active confirmed Problem Gastroesophageal reflux disease (disorder) (839563954) Chronic GERD (K21.9) Active confirmed Vital Signs Blood pressure diastolic 00 mm Hg 02/23/2024 Height 70 in 02/23/2024 Blood pressure systolic 00 mm Hg 02/23/2024 Weight 181 lbs 02/23/2024 BMI 25.97 kg/m2 02/23/2024 Encounters Encounter Location Date Provider Diagnosis [facility] [address] [place] [address] 02/23/2024 Mark Combs Encounter for screening for malignant neoplasm of colon Z12.11 ; Diarrhea R19.7 ; Long-term use of aspirin therapy Z79.82 ; History of adenomatous polyp of colon Z86.010 and GERD without esophagitis K21.9 [facility] [address] [place] [phone] 05/31/2024 Mark Combs Chronic GERD K21.9 [facility] [address] [place] [phone] 06/05/2024 Mark Combs [facility] [address] [place] [phone] 06/05/2024 Mark Combs Abdominal aortic aneurysm, without rupture, unspecified I71.40 [facility] [address] [place] [phone] 06/05/2024 Mark Combs [facility] [address] [address] 08/26/2024 Mark Combs Assessments Encounter Date Diagnosis (ICD [...] - R19.7) Switch to Lactose-free milk like [place] milk, etc Overall, Juan appears well. I [...] Start Date Coverage End Date MEDICARE OF [place] [address] [place] [address] [id number] JUAN ARANGO Self - patient is the insured MEDICAID OF [facility] [address] [place] [phone] [id number] JUAN ARANGO Self - patient is the insured Medical (General) History Medical History History ICD Code Heart attack 09/11/2015--2 st ents--at [facility]--fine since then--sees Dr. Francisco at [facility] Arthritis in spine Abdominal aortic aneurysm Negative colonoscopy > 10 yr s ago at [facility] [place] of rectal bleeding--he describes the finding of hemorrhoids Denies DM,CVA,Lung disease,renal disease Gallstones-asymptomatic Colonoscopy 10/2016--2 tubular adenomas r emoved EGD in 07/2018--erosive gastr itis, bx neg for Hpylori; AVM's nonbleeding; no esophagitis Surgical History Surgery Date(Month/Year) Cervical spondylosis 1998 Appendectomy 1963 Cataract surgery bilateral
--- NOTE | 2024-11-01 08:06 | PFT_ITS ---
Spirometry [] Lung Volumes [] Diffusion Capacity [] Methacholine Challenge [] Flow Volume Loops [] MVV [] MIP/MEP(Max inspiratory pressure/Max expiratory pressure) [] 6 Minute Walk Test [] ABG [] Interpretation [] MTDD
[2024-11-01 09:06] VITALS: PULSE 58; O2SAT 97
== END 2024-11-01 07:04 | disposition home or self-care (01) ==
LOC: HO.RESP 07:03
PROVIDERS: Visit Provider Nurse Practitioner Family
DX: J44.9 Chronic obstructive pulmonary disease, unspecified (principal)
CPT/HCPCS: 94010; 94640; 94727; 94729

== ENCOUNTER → 2024-11-01 08:06 | Outpatient (BNV) | payer MEDICARE, MEDICAID, SELFPAY | PROVIDERS: Visit Provider Internal Medicine Pulmonary Disease | DX: J44.9 Chronic obstructive pulmonary disease, unspecified (principal) | CPT/HCPCS: 94060; 94727; 94729 ==

== ENCOUNTER 2024-11-07 11:12 | Outpatient (REF) | payer MEDICARE, MEDICAID, SELFPAY ==
[2024-11-07 13:05] LABS: MANUAL DIFF FLAG NO
--- OUTSIDE RECORDS SUMMARY | 2024-11-07 13:29 | XMS_ITS | Clinical Summary ---
Author Organization [facility] Address [address] [place] [address] Phone Care Team Providers Care Industrial Custodian Name Role Phone Unavailable Primary Care Provider Unavailabl e Encounters Date Type Department Care Team Description 09/14/2024 7:17 AM EDT - 09/14/2024 11:59 PM EDT Hospital Encounter [facility] PET Scan [address] [place] [address] Other nonspecific abnormal finding of [...] Signed Date: 09/18/2024 04:16 ET Workstation ID: [id number] Transcribed By: Self Edit Transcribed Date: 09/18/2024 [...] Signed Date: 09/18/2024 04:16 ET Workstation ID: [id number] Transcribed By: Self Edit Transcribed Date: 09/18/2024 03:42 ET Karthikeyan Chin MD IMG NM PROCEDURES Final Result from Last 3 Months Insurance MEDICARE [place]ICA[place] - [place]
[2024-11-07 13:32] LABS: Basophils Absolute Auto 0.1 X10*3/uL (0.0-0.2); Basophils Percent Auto 0.8 % (0-2); Eosinophils Absolute Auto 0.3 X10*3/uL (0.0-0.4); Eosinophils Percent Auto 3.2 % (0-4); Hematocrit 39.3 % (42.0-52.0); Hemoglobin 12.9 g/dl (14.0-18.0); Imm Gran Abs Auto 0.03 X10*3/uL (0.00-0.03); Imm Gran Pct Auto 0.4 % (0.0-0.4); Lymphocytes Absolute Auto 1.9 X10*3/uL (1.2-4.9); Lymphocytes Percent Auto 24.5 % (20-40); Mean Corpuscular HGB Conc 32.8 g/dl (31.0-36.0); Mean Corpuscular Volume 85.4 fL (80.0-98.0); Mean Platelet Volume 9.6 fL (9.4-12.4); Monocytes Absolute Auto 0.8 X10*3/uL (0.1-1.2); Monocytes Percent Auto 10.4 % (2-11); Neutrophils Absolute Auto 4.8 x10*3/uL (2.0-8.3); Neutrophils Percent Auto 60.7 % (45-73); Platelet Count 346 X10*3/uL (160-400); Red Cell Distribution Width 13.5 % (11.0-16.0); White Blood Count 7.8 X10*3/uL (4.8-10.8)
[2024-11-07 13:51] LABS: Appearance Urine Turbid; Color Urine Dark Yellow; Glucose Urine UA Negative (Negative); Leukocyte Esterase Urine Negative (Negative); Nitrite Urine Negative (Negative); Specific Gravity - Urine >= 1.030 (1.005-1.025); Urine Blood Negative (Negative); Urine Ketones Trace mg/dL (Negative); Urine Protein Trace mg/dL (Neg-Trace)
[2024-11-07 14:31] LABS: Estimated Average Glucose 154 mg/dL; Total Hemoglobin (HGBA1C) 3463.5201 umol/L
[2024-11-07 15:02] LABS: Alanine Aminotransferase 12 U/L (0-40); Albumin Level 4.6 g/dL (3.5-5.0); Alkaline Phosphatase 63 U/L (39-117); Anion Gap 14 (12-20); Aspartate Amino Transferase 21 U/L (5-37); Bilirubin Total 0.7 mg/dL (0.0-1.0); Blood Urea Nitrogen 19 mg/dL (9-16); Calcium 9.1 mg/dL (8.4-10.2); Carbon Dioxide 23 mmol/L (22-29); Chloride 111 mmol/L (96-108); Cholesterol 181 mg/dL (<200); Estimated Glomerular Filt Rate > 60; Glucose Fasting 124 mg/dL (60-99); HDL Cholesterol 47 mg/dL (>40); LDL Cholesterol Calculated 110 mg/dL (<100); Potassium 4.1 mmol/L (3.3-5.1); Sodium 144 mmol/L (135-145); Total Protein 7.9 g/dL (6.5-8.0); Triglycerides 121 mg/dL (<150)
[2024-11-07 15:15] LABS: TSH reflex Free T4 1.02 uIU/mL (0.32-4.0); Vitamin D 25-OH Total 21.5 ng/mL (>30)
== END 2024-11-07 11:13 | disposition home or self-care (01) ==
LOC: HO.LAB 11:12
PROVIDERS: Internal Medicine; Internal Medicine Medical Oncology
DX: R10.13 Epigastric pain (principal); C34.92 Malignant neoplasm of unspecified part of left bronchus or lung; D64.9 Anemia, unspecified; J43.9 Emphysema, unspecified; K21.9 Gastro-esophageal reflux disease without esophagitis; I10 Essential (primary) hypertension; E78.00 Pure hypercholesterolemia, unspecified; G25.81 Restless legs syndrome; R73.01 Impaired fasting glucose; E55.9 Vitamin D deficiency, unspecified; R91.8 Other nonspecific abnormal finding of lung field; Z79.899 Other long term (current) drug therapy; Z87.891 Personal history of nicotine dependence
CPT/HCPCS: 36415; 80053; 80061; 81003; 82306; 83036; 84443; 85025; 96127; 99212

== ENCOUNTER 2024-11-07 11:12 | Outpatient (AMB) | payer MEDICARE, MEDICAID, SELFPAY ==
--- NOTE | 2024-11-07 11:32 | MHC.PC.OV ---
Vital Signs 11/07/24 11:33 Height 5 ft 8 in Weight 175 lb BMI 26.6 BP 116/70 Blood Pressure Location Lt brachial Position Sitting Respiration 18 Pulse 60 Pulse Source Pulse Oximeter Temp 98.6 F Temp Source Oral Pulse Oximetry (%) 98 Oxygen Delivery Method Room Air Intake Visit Reasons: Abdominal Hospital Receptionist Required: No Electric Golf Cart Repairer: Not Required per policy Accompanied by: Self / Same As Patient Allergies Nvdafpj-YRF-DtW Reductase Inhibitor [QAQLMAM-TEJ-XRV REDUCTASE INHIBITOR] Allergy (Mild, Verified 11/09/24 14:42) Muscle Pain Medication List - Last Reconciled 11/07/24 by HELEN Braden aspirin 81 mg PO DAILY Breo Ellipta 200-25 mcg/dose (fluticasone furoate-vilanterol) 1 inh inhalation DAILY NS cholecalciferol (vitamin D3) (Vitamin D3) 50 mcg PO DAILY clopidogrel 75 mg PO DAILY metoprolol succinate ER 50 mg PO DAILY omeprazole 20 mg PO Q OTHER DAY sildenafil (Viagra) 50 mg PO DAILY PRN Tobacco use date assessed: 11/07/24 Fall risk assessment: No Falls in past year Last assessed Fall Risk: 11/07/24 Dental Screening Dental Screen Date: 11/07/24 Did you have a dental visit in the last 12 months?: No Did you have a dental problem in the last 6 months where you did not have access to dental care?: No Was dental information given to patient?: No HPI Abdominal HPI Details The patient is a 69-year-old male presenting with concerns related to a malignant neoplasm of the lung and emphysema, prompting evaluation and management. The lung malignancy is localized to the lower lobe of the left lung and is currently under evaluation with plans for chemotherapy and possible surgical resection in the upcoming months. In tandem with his malignancy, the patient phi with emphysema affecting both lungs' upper lobes, raising concerns about post-treatment pulmonary insufficiencies. The patient successfully underwent abdominal aorta repair surgery, declaring his recovery as progressing well, with imaging reports affirming satisfactory internal healing. The patient has undergone extensive imaging, including a PET scan and numerous CT scans, partly aimed at monitoring cancer progression and surgical recovery. Scheduled MRIs seek to rule out potential cerebral metastasis. Noteworthy is the observed high blood glucose levels during recent medical testing, provoking concerns of potential diabetes, supported by significant familial predisposition. The patient anticipates upcoming blood work to confirm the possibility of diabetes, stressing the importance amidst imminent chemotherapy concerns. The patient is also concern about the possibility of needing a ride once he starts chemotherapy reports that he is having restless syndrome and insomnia-will try gabapentin 300mg at [facility] Medical History HTN (hypertension) GERD (gastroesophageal reflux disease) Emphysema, unspecified Wears dentures Arthritis AAA (abdominal aortic aneurysm) Myocardial infarction Elevated cholesterol CAD (coronary artery disease) Surgical History History of AAA (abdominal aortic aneurysm) repair (09/28/24) History of esophagogastroduodenoscopy (EGD) H/O colonoscopy Hx of heart artery stent History of cataract surgery History of ear surgery History of neck surgery History of appendectomy Family History Other Substance use disorder Social History Household Members: None Housing: Apartment Are you a primary clinical manager home care to a significant other at home: No Do you presently have visiting nurse or other home services: No Alcohol intake: current Alcohol intake frequency: holidays/special occasions only Alcohol type: wine Patient Tobacco Use Status: Former Tobacco user Tobacco use type: Cigarette Cigarette Packs Per Day: 1.5 Years Smoked: 45 e-Cigarette/Vaping Use: Never Used Second Hand Smoke Exposure: No Substance Use Type: Marijuana service: Yes Current occupational status: retired Current occupational exposures/hazards: No Cognitive needs: No Hearing needs: No Vision needs: No Questionnaire PHQ-9 Over the last 2 weeks, how often have you been bothered by any of the following problems? 1. Little interest or pleasure in doing things: not at all 2. Feeling down, depressed, or hopeless: not at all 3. Trouble falling or staying asleep, or sleeping too much: nearly every day 4. Feeling tired or having little energy: several days 5. Poor appetite or overeating: not at all 6. Feeling bad about yourself - or that you are a failure or have let yourself or your family down: not at all 7. Trouble concentrating on things, such as reading the newspaper or watching television: not at all 8. Moving or speaking so slowly that other people could have noticed. Or the opposite - being so fidgety or restless that you have been moving around a lot more than usual: not at all 9. Thoughts that you would be better off or of hurting yourself in some way: not at all Total score: 4 Depression Screening Interpretation: Positive Depression Screening Done: Yes Source: Developed by Drs. Mark Castaneda, Monica Morrissey, Wong Valverde and colleagues, with an educational john from [employer]. Thrive Questionnaire Date Thrive assessed: 11/07/24 I am a: Patient What is your living situation today?: I have a steady place to live Within the past 12 months, did the food you bought not last and you didn't have the money to get more?: Never true Within the past 12 months, did you worry whether your food would run out before you got money to buy more?: Never true Do you have trouble paying for medicines?: No Do you have trouble getting transportation to medical appointments?: I choose not to answer this question Do you have trouble paying your heating and electricity bill?: No Do you have trouble taking care of your child, family member or friend?: No Do you have trouble with day-to-day activities such as bathing, preparing meals, shopping, managing finances, etc.?: No Are you currently unemployed and looking for a job?: No Are you interested in more education?: No Please select the resources that you would like help with: Transportation and Care for elder or disabled Currently or been in a relationship where the following occur: No concerns reported THRIVE Score: 0 AUDIT C Alcohol Use Questionnaire (AUDIT-C) 1. How often do you have a drink containing alcohol?: Monthly or less 2. How many drinks containing alcohol do you have on a typical day when you are drinking?: 1 or 2 3. How often do you have six or more drinks on one occasion?: Never Total Score: 1 Score Reviewed/Action Taken: No RODRIGUE-7 AMB Questionnaire RODRIGUE-7 Date RODRIGUE - 7 assessed: 11/07/24 Feeling nervous, anxious, or on edge: 1 = Several days Not being able to stop or control worryin = Not at all Worrying too much about different things: 1 = Several days Trouble relaxin = More than half the days Being so restless that it is hard to sit still: 0 = Not at all Becoming easily annoyed or irritable: 0 = Not at all Feeling afraid as if something awful might happen: 0 = Not at all Total RODRIGUE-7 score (0-4 normal; 5-9 mild; 10-14 moderate; 15-21 severe): 4 Source: Developed by Drs. Mark Castaneda, Monica Morrissey, Wong Valverde and colleagues, with an educational john from [employer]. Review of Systems Const Denies headache(s) Eyes Denies loss of vision ENT Denies vertigo, Denies dizziness, Denies headache(s) and Denies sore throat Card Reports chest pain (intermittent-related to emphysema and lung CA), Denies leg edema, Denies lightheadedness and Reports dyspnea on exertion Resp Reports cough, Reports hemoptysis, Reports dyspnea on exertion and Reports wheezing GI Reports abdominal pain (on and off), Denies melena, Denies constipation, Denies diarrhea and Denies vomiting Denies dysuria, Denies urinary frequency and Denies urinary urgency Musc Denies arthralgias, Denies joint swelling, Denies numbness, Denies tingling and Reports other (restless leg) Neuro Denies Abnormal speech present, Denies behavioral changes, Denies vertigo, Denies dizziness, Denies headache(s), Denies loss of vision, Denies memory loss, Denies numbness and Denies tingling Psych Reports anxiety, Denies behavioral changes, Reports depression, Denies memory loss and Denies panic attacks Rush/Lymph Denies easy bleeding and Denies easy bruising Aller/Immun Reports wheezing Physical exam (Primary Care) Vital Signs: Last Vital Signs Temp 98.6 F 11/07/24 11:33 Pulse 60 11/07/24 11:33 Resp 18 11/07/24 11:33 BP 116/70 11/07/24 11:33 Pulse Ox 98 11/07/24 11:33 Oxygen Delivery Method Room Air 11/07/24 11:33 BMI result Body Mass Index 26.6 Tobacco/Smoking Status: Tobacco use Status Tobacco use date assessed 11/07/24 11/07/24 11:34 Patient Tobacco Use Status Former Tobacco user 11/07/24 11:40 Tobacco use type Cigarette 11/07/24 11:40 e-Cigarette/Vaping Use Never Used 11/07/24 11:40 PHQ-9: PHQ-9 Score PHQ-9: Total score 4 11/07/24 12:13 Depression Screening Interpretation: Positive Thrive Assessment: Date of Thrive Assessment Date Thrive assessed 11/07/24 11/07/24 11:43 Currently or been in a relationship where the following occur: No concerns reported Const General: healthy appearing, no acute distress, alert and awake Nutritional Appearance: well nourished Orientation/consciousness: oriented to person, oriented to place and oriented to time HENMT Ears: TM's normal bilaterally General nose exam: Normal nasal mucous membranes and turbinates present Eyes Conjunctivae: conjunctivae normal Sclerae: sclerae normal Pupils: Equal, round and reactive pupils present Neck Neck: Yes no lymphadenopathy and Yes no JVD Thyroid: Thyroid normal Carotids: no bruits Resp Effort & Inspection: normal respiratory effort and not tachypneic Auscultation: no crackles, no rales, no rhonchi and no wheezes Cardio Rate: regular rate Rhythm: regular rhythm Heart sounds: no murmurs and normal S1 and S2 GI Palpation (GI): Soft to palpation, nontender, no hepatomegaly and no splenomegaly Auscultation: normal bowel sounds Skin General skin exam: no rashes or lesions noted and dry skin Neuro General: oriented to person, oriented to place and oriented to time Cranial nerves: Yes Equal, round and reactive pupils present Speech: No Abnormal speech present Gait exam (Neuro): Normal gait present Motor exam (neuro): no tremor noted Extrem Right upper extremity: full ROM Left upper extremity: full ROM Right lower extremity: full ROM; no edema Left lower extremity: full ROM; no edema Psych Mental Status: mental status grossly normal Speech and movement: Normal speech and movement present Affect: normal affect Attitude: cooperative Thought process: Normal thought process present Coding Level of Care Code Est Pt Level 4 (07986) Diagnoses Epigastric pain R10.13 Abdominal location: epigastric Non-small cell cancer of left lung C34.92 Laterality: left Anemia, unspecified type D64.9 Anemia type: unspecified type Pulmonary emphysema, unspecified emphysema type J43.9 COPD type: emphysema Emphysema type: unspecified Chronic GERD K21.9 Hypertension, unspecified type I10 Hypertension type: unspecified Elevated cholesterol E78.00 Restless legs syndrome G25.81 Impaired fasting glucose R73.01 Vitamin D deficiency E55.9 Time Spent (min) 41 Assessment & Plan Assessment & Plan (1) Abdominal pain: Code(s): R10.9 - Unspecified abdominal pain Category: Medical Qualifiers: Abdominal location: epigastric Qualified Code(s): R10.13 - Epigastric pain Plan: Reports intermittent abdominal pain close to epigastric region. The patient had recent AAA surgery 09/28/2024, also has history of GERD, which might be causing this discomfort intermittently as well. Encouraged to take omeprazole 20 mg daily. The patient is only taking this every other day. (2) Non-small cell carcinoma of lung: Code(s): C34.90 - Malignant neoplasm of unspecified part of unspecified bronchus or lung Category: Medical Qualifiers: Laterality: left Qualified Code(s): C34.92 - Malignant neoplasm of unspecified part of left bronchus or lung Plan: Follow up with Oncology as scheduled (3) Anemia: Code(s): D64.9 - Anemia, unspecified Category: Medical Qualifiers: Anemia type: unspecified type Qualified Code(s): D64.9 - Anemia, unspecified Plan: H&H is stable-hemoptysis continues intermittently, we will continue to monitor (4) COPD (chronic obstructive pulmonary disease): Code(s): J44.9 - Chronic obstructive pulmonary disease, unspecified Category: Medical Qualifiers: COPD type: emphysema Emphysema type: unspecified Qualified Code(s): J43.9 - Emphysema, unspecified Plan: Continue Breo Ellipta 200-25 mcg/dose 1 inhalation daily Scheduled for PFT to assess severity Follow up with pulmonology as scheduled (5) Chronic GERD: Code(s): K21.9 - Gastro-esophageal reflux disease without esophagitis Category: Medical Plan: Reinforced dietary restrictions Encouraged omeprazole 20 mg daily; the patient is only taking this every other day (6) Hypertension: Code(s): I10 - Essential (primary) hypertension Category: Medical Qualifiers: Hypertension type: unspecified Qualified Code(s): I10 - Essential (primary) hypertension Plan: Reinforced low-salt diet Continue metoprolol succinate ER 50 mg daily (7) Elevated cholesterol: Code(s): E78.00 - Pure hypercholesterolemia, unspecified Category: Medical Plan: Last LDL was 125 Reinforced low-cholesterol diet and activity as tolerated States that he stopped taking ezetimibe due to muscle cramps Lipid panel order to be completed kyle to further evaluate (8) Restless legs syndrome: Code(s): G25.81 - Restless legs syndrome Category: Medical Plan: Gabapentin 300mg at bedtime ordered (9) Impaired fasting glucose: Code(s): R73.01 - Impaired fasting glucose Category: Medical Plan: Last fasting glucose was 116, will add an A1C to ordered labs to further evaluate (10) Vitamin D deficiency: Code(s): E55.9 - Vitamin D deficiency, unspecified Category: Medical Plan: He was recently started on vitamin-D3 50 mcg daily Orders: Orders Vitamin D 25-OH Total 11/07/24 C34.90 - Malignant neoplasm of unspecified part of unspecified bronchus or lung, I10 - Essential (primary) hypertension, K21.9 - Gastro-esophageal reflux disease without esophagitis, R91.8 - Other nonspecific abnormal finding of lung field, Z87.891 - Personal history of nicotine dependence Hemoglobin A1c 11/07/24 C34.90 - Malignant neoplasm of unspecified part of unspecified bronchus or lung, I10 - Essential (primary) hypertension, K21.9 - Gastro-esophageal reflux disease without esophagitis, R91.8 - Other nonspecific abnormal finding of lung field, Z87.891 - Personal history of nicotine dependence TSH reflex Free T4 11/07/24 C34.90 - Malignant neoplasm of unspecified part of unspecified bronchus or lung, I10 - Essential (primary) hypertension, K21.9 - Gastro-esophageal reflux disease without esophagitis, R91.8 - Other nonspecific abnormal finding of lung field, Z87.891 - Personal history of nicotine dependence Comprehensive [place]. Panel Fast 11/07/24 C34.90 - Malignant neoplasm of unspecified part of unspecified bronchus or lung, I10 - Essential (primary) hypertension, K21.9 - Gastro-esophageal reflux disease without esophagitis, R91.8 - Other nonspecific abnormal finding of lung field, Z87.891 - Personal history of nicotine dependence UA CC w/rflx Micro + Cult 11/07/24 C34.90 - Malignant neoplasm of unspecified part of unspecified bronchus or lung, I10 - Essential (primary) hypertension, K21.9 - Gastro-esophageal reflux disease without esophagitis, R91.8 - Other nonspecific abnormal finding of lung field, Z87.891 - Personal history of nicotine dependence Lipid Panel 11/07/24 C34.90 - Malignant neoplasm of unspecified part of unspecified bronchus or lung, I10 - Essential (primary) hypertension, K21.9 - Gastro-esophageal reflux disease without esophagitis, R91.8 - Other nonspecific abnormal finding of lung field, Z87.891 - Personal history of nicotine dependence Medications: New gabapentin 300 mg PO BEDTIME 30 caps 2RF
[2024-11-07 11:33] VITALS: BP 116/70; PULSE 60; RESP 18; TEMP 37; O2SAT 98; BMI 26.6
--- OUTSIDE RECORDS SUMMARY | 2024-11-07 12:31 | XMS_ITS ---
Author Organization [facility] Address [address] [place] [id number] Care Team Providers Care Optical Sales Associate Name Role Phone Caitlin AUSTIN, Harrison Primary Care Provider Unavaila Mark Gabriel Unavailable [phone] REASON FOR VISIT screening,hx polyps, gerd Encounters Encounter Location Date Provider Diagnosis [facility] [place] [facility] Outpatient [address] [place] [phone] 06/06/2024 Mark Combs Plan Of Treatment No Information Progress Notes * LEONID DON SDOB:1955 (69 yo M)Acc No.[id number]:06/06/2024 EGD and COL/MAC Patient:?LEONID DON Provider:?Mark Combs MD :1955???Age:69 Y???Sex:Male Emeterio e:06/06/2024 Address:[address] , [id number] Pcp:Harrison Tucker MD Subjective: * Chief Complaints: [...] MD Date:? 024 Generated for Printi ng/Faxing/eTransmitting on:?11/07/2024 12:31 PM EDT
--- OUTSIDE RECORDS SUMMARY | 2024-11-07 12:31 | XMS_ITS ---
Author Organization [facility] Address [address] [place] [id number] Care Team Providers Care Airfield Defence Guard Name Role Phone Harrison Tucker MD Primary Care Provider Maria Luisaa Mark Gabriel Unavailable [phone] Encounters Encounter Location Date Provider Diagnosis [facility] [address] [place] [phone] 06/05/2024 Mark Combs Plan Of Treatment No Information Progress Notes * LEONID DON SDOB:1955 (69 yo M)Acc No.[id number]:06/05/2024 Patient:?LEONID DON :1955???Age:69 Y???Sex:Male Address:[address] [place], [address] * true * Date:? Generated for Printi ng/Ashantig/eTransmitting on:?11/07/2024 12:31 PM EDT
--- OUTSIDE RECORDS SUMMARY | 2024-11-07 12:31 | XMS_ITS | Clinical Summary ---
Author Organization [facility] Address [address] [place] [address] Phone Care Team Providers Care Mill Controller Name Role Phone Unavailable Primary Care Provider Unavailabl e Encounters Date Type Department Care Team Description 09/14/2024 7:17 AM EDT - 09/14/2024 11:59 PM EDT Hospital Encounter [facility] PET Scan [address] [place] [address] Other nonspecific abnormal finding of [...] Signed Date: 09/18/2024 04:16 ET Workstation ID: [id number] Transcribed By: Self Edit Transcribed Date: 09/18/2024 [...] Signed Date: 09/18/2024 04:16 ET Workstation ID: [id number] Transcribed By: Self Edit Transcribed Date: 09/18/2024 03:42 ET Karthikeyan Chin MD IMG NM PROCEDURES Final Result from Last 3 Months Insurance MEDICARE [place]ICA[place] - [place]
--- OUTSIDE RECORDS SUMMARY | 2024-11-07 12:32 | XMS_ITS ---
Author Organization [facility] Address [address] [place] [phone] Care Team Providers Care Diesel Engine Fitter Name Role Phone Harrison Tucker MD Primary Care Provider Maria Luisaa Mark Gabriel Unavailable [phone] Encounters Encounter Location Date Provider Diagnosis [facility] [address] [place] [phone] 08/26/2024 Mark Combs Plan Of Treatment No Information Progress Notes * LEONID DON SDOB:1955 (69 yo M)Acc No.[id number]:08/26/2024 Patient:?LEONID DON :1955???Age:69 Y???Sex:Male Address:[address] [place], [address] * true * Date:? Generated for Printi ng/Ashantig/eTransmitting on:?11/07/2024 12:31 PM EDT
--- OUTSIDE RECORDS SUMMARY | 2024-11-07 12:32 | XMS_ITS | Patient Health Record ---
Author Organization [facility] Address [address] [place] [address] Care Team Providers Care Ice Platform Supervisor Name Role Phone Harrison Tucker MD Primary Care Provider Mark Vinson Unavailable [phone] Allergies Allergen (clinical drug ingredient) Drug/Non Drug Allergy documented on EMR Reaction Allergy Type Onset Date Status atorvastatin Atorvastatin Calcium muscle pain Drug Allergy Active Results Component Value Reference Range Notes US abdominal aortic aneurysm (Not yet reviewed by provider) Interpretation: Performing Lab: Notes/Report: [address] [address] Ultrasound Report Signed Patient: Juan Arango MR#: [id number] : 1955 Acct:[id number] Age/Sex: 69 / M ADM Date: 06/05/24 Loc: . Attending Dr: Mark Combs MD Ordering Physician: Mark Combs MD Date of Service: 06/05/24 Procedure(s): US abdominal aortic aneurysm Accession Number(s): [id number] cc: Harrison Tucker MD; Mark Combs MD [...] by: Payton Potter MD 06/05/2024 10:15 AM [facility] Dictated By: Payton Potter MD Signed By: <Electronically signed by Payton Potter MD in OV> 06/05/24 1015 DD/ 0820 TD/TT: 06/05/24 0846 Insurance Claims Processor: [place] [id number] Ultrasound Report Signed Patient: Juan Arango MR#: [id number] : 1955 Acct:[id number] Age/Sex: 69 / M ADM Date: 06/05/24 Loc: HO.US Attending Dr: Mark Combs MD Ordering Physician: Mark Combs MD Date of Service: 06/05/24 Procedure(s): US abd ominal aortic aneurysm Accession Number(s): [id number] cc: Harrison Tucker MD; Mark Combs MD [...] by: Payton Potter MD 06/05/2024 10:15 AM [facility] Dictated By: Payton Potter MD Signed By: <Wes teresa signed by Payton Potter MD in OV> 06/05/24 1015 DD/ 0820 TD/TT: 06/05/24 0846 Insurance Claims Processor: Reason For Referral No Information Medications Medication SIG (Take, Route, Frequency, Duration) Notes Start Date End Date Status Omeprazole 20 MG TAKE 1 CAPSULE BY [facility] EVERY MORNING for 30 Active [...] Problem Status W/U Status Risk Notes Problem [id number] Encounter for screening for malignant neoplasm of colon (Z12.11) Active confirmed Problem History of adenomatous polyp of colon (606810305) History of adenomatous polyp of colon (Z86.010) Active confirmed Problem Diarrhea (39178028) Diarrhea (R19.7) Active con firmed Problem Screening for malignant neoplasm of rectum (391606023) Encounter for screening for malignant neoplasm of rectum (Z12.12) Active confirmed Problem 033821648 Gallstones (K80.20) Active confirmed Problem 419717259 Long-term use of aspirin therapy (Z79.82) Active confirmed Problem 900703874 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) Active confirmed Problem Gastroesophageal reflux disease (907117357) GERD without esophagitis (K21.9) Active confirmed Problem 5382027 Chronic gastriti s without bleeding, unspecified gastritis type (K29.50) Active confirmed Problem 07175354 Globus sensation (F45.8) Active confirmed Problem 16752468 Globus pharyngeu s (F45.8) Active confirmed Problem Abdominal aortic aneurysm without rupture (disorder) (53202503) Abdominal aortic aneurysm, without rupture, unspecified (I71.40) Active confirmed Problem Gastroesophageal reflux disease (disorder) (727958354) Chronic GERD (K21.9) Active confirmed Vital Signs Blood pressure diastolic 00 mm Hg 02/23/2024 Height 70 in 02/23/2024 Blood pressure systolic 00 mm Hg 02/23/2024 Weight 181 lbs 02/23/2024 BMI 25.97 kg/m2 02/23/2024 Encounters Encounter Location Date Provider Diagnosis [facility] [address] [place] [phone] 02/23/2024 aMrk Combs Encounter for screening for malignant neoplasm of colon Z12.11 ; Diarrhea R19.7 ; Long-term use of aspirin therapy Z79.82 ; History of adenomatous polyp of colon Z86.010 and GERD without esophagitis K21.9 [facility] [address] [place] [phone] 05/31/2024 Mark Combs Chronic GERD K21.9 [facility] [address] [place] [phone] 06/05/2024 Mark Combs [facility] [address] [place] [phone] 06/05/2024 Mark Combs Abdominal aortic aneurysm, without rupture, unspecified I71.40 [facility] [address] [place] [phone] 06/05/2024 Mark Combs [facility] [address] [address] 08/26/2024 Mark Combs Assessments Encounter Date Diagnosis [...] - R19.7) Switch to Lactose-free milk like [place] milk, etc Overall, Juan appears well. I [...] Start Date Coverage End Date MEDICARE OF [place] [address] [place] [address] [id number] JUAN ARANGO Self - patient is the insured MEDICAID OF [place] [employer] [address] [place] [phone] [id number] JUAN ARANGO Self - patient is the insured Medical (General) History Medical History History ICD Code Heart attack 09/11/2015--2 st ents--at [facility]--fine since then--sees Dr. Francisco at [facility] Arthritis in spine Abdominal aortic aneurysm Negative colonoscopy > 10 yr s ago at [facility] [place] of rectal bleeding--he describes the finding of hemorrhoids Denies DM,CVA,Lung disease,renal disease Gallstones-asymptomatic Colonoscopy 10/2016--2 tubular adenomas r emoved EGD in 07/2018--erosive gastr itis, bx neg for Hpylori; AVM's nonbleeding; no esophagitis Surgical History Surgery Date(Month/Year) Cervical spondylosis 1998 Appendectomy 1963 Cataract surgery bilateral
== END 2024-11-07 12:43 | disposition home or self-care (01) ==
LOC: HO.HMCH 11:12
PROVIDERS: PCP Internal Medicine
DX: R10.13 Epigastric pain (principal); C34.92 Malignant neoplasm of unspecified part of left bronchus or lung; D64.9 Anemia, unspecified; J43.9 Emphysema, unspecified; K21.9 Gastro-esophageal reflux disease without esophagitis; I10 Essential (primary) hypertension; E78.00 Pure hypercholesterolemia, unspecified; G25.81 Restless legs syndrome; R73.01 Impaired fasting glucose; E55.9 Vitamin D deficiency, unspecified

== ENCOUNTER 2024-12-07 09:31 | Outpatient (AMB) | payer MEDICARE, MEDICAID, SELFPAY ==
--- OUTSIDE RECORDS SUMMARY | 2024-06-05 08:28 | XMS_ITS ---
Author Organization [facility] Address [address] [place] [phone] Care Team Providers Care Sex Worker Or Escort Name Role Phone Harrison Tucker MD Primary Care Provider Mark Vinson Unavailable [phone] Encounters Encounter Location Date Provider Diagnosis [facility] [address] [place] [phone] 06/05/2024 Mark Combs Plan Of Treatment No Information Progress Notes * LEONID DON SDOB:1955 (69 yo M)Acc No.[id number]:06/05/2024 Patient: Raysa LEONID QUEEN :1955 A ge:69 Y S ex:Male Address:[address] , [place], [address] * true * Date: Generated for Jci ng/Fasiobhang/eTransmitting on: 0 12/07/2024 09:47 AM EDT
--- NOTE | 2024-12-07 09:34 | MHC.OFFVIS ---
Vital Signs 12/07/24 09:35 Height 5 ft 8 in Weight 173 lb 4 oz BMI 26.3 BP 124/72 Blood Pressure Location Lt brachial Position Sitting Pulse 53 Pulse Source Pulse Oximeter Pulse Oximetry (%) 99 Oxygen Delivery Method Room Air Intake Visit Reasons: COPD Allergies Fflzwfn-NVK-MyO Reductase Inhibitor (SAOXBCF-GOM-PKQ REDUCTASE INHIBITOR) Allergy (Mild, Verified 12/07/24 09:39) Muscle Pain HPI HPI COPD: Details: Juan is a pleasant 69 year old male, former smoker, quit 2015 with approximately 67 pack year history with underlying metastatic lung non-small cell carcinoma, h/o AL s/p bare meal stents 2015 on ASA, AAA 6.5 cm s/p repair 09/2024 on Plavix, GERD, HTN and CAD. He was initially referred by PCP after recent abnormal chest CT 09/09/24 which revealed 5.5 cm x 6.6 cm x 4.1cm left lower lung mass. PET 09/14/24 revealed FDG activity left lung mass, SUV 7.8 as well as left hilar lymphadenopathy, SUV max 5.8. On 10/10/[address] Chin pathology came back revealing positive for malignancy, consistent with metastatic lung non-small cell carcinoma. Since the last visit, he has had a port placed 11/19 and received one chemo infusion, will be receiving one q3 weeks, overall tolerating well thus far. He is currently managed by Dr. Becker. He has also been evaluated by thoracic surgery at [facility], unfortunately not a surgical candidate, as lung cancer is stage 4b, now with brain mets. He will be initiating radiation through [facility], unknown start date. 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 He is questioning second referral to [facility] rad/onc if he can not establish good communication with [facility]. PFT revealed mild obstructive defect and has been prescribed Breo however he has yet to start given possibility of thrush and increased risk with chemo, as well as current dental issues. Awaiting evaluation with dentist. He reports mild dyspnea on exertion at this time, with significant improvements in cough, still with hemoptysis. Denies wheezing or chest tightness. [facility] Medical History HTN (hypertension) GERD (gastroesophageal reflux disease) Emphysema, unspecified Wears dentures Arthritis AAA (abdominal aortic aneurysm) Myocardial infarction Elevated cholesterol CAD (coronary artery disease) Surgical History History of AAA (abdominal aortic aneurysm) repair (09/28/24) History of esophagogastroduodenoscopy (EGD) H/O colonoscopy Hx of heart artery stent History of cataract surgery History of ear surgery History of neck surgery History of appendectomy Family History Other Substance use disorder Social History Household Members: None Housing: Apartment Are you a primary career center director to a significant other at home: No Do you presently have visiting nurse or other home services: No Alcohol intake: current Alcohol intake frequency: holidays/special occasions only Alcohol type: wine Patient Tobacco Use Status: Former Tobacco user Tobacco use type: Cigarette Cigarette Packs Per Day: 1.5 Years Smoked: 45 e-Cigarette/Vaping Use: Never Used Second Hand Smoke Exposure: No Substance Use Type: Marijuana service: Yes Current occupational status: retired Current occupational exposures/hazards: No Cognitive needs: No Hearing needs: No Vision needs: No Review of Systems Const Denies chills, Denies excessive sweating, Denies fever(s), Denies headache(s) and Denies night sweats Eyes Denies dry eyes, Denies irritation and Denies itchy eyes ENT Reports Normal hearing present, Denies headache(s), Denies nasal congestion, Denies nasal discharge, Denies post nasal drip and Denies sore throat Card Denies chest pain, Denies chest pain at rest, Denies chest pain with activity, Denies claudication, Denies leg edema, Reports dyspnea on exertion, Denies orthopnea and Denies paroxysmal nocturnal dyspnea Resp Denies chest congestion, Reports cough, Reports hemoptysis, Denies excessive phlegm production, Denies pain on inspiration, Denies pain with cough, Reports dyspnea on exertion and Denies stridor Musc Denies myalgias Neuro Reports Normal hearing present and Denies headache(s) Endo Denies excessive sweating Rush/Lymph Denies lymphadenopathy Aller/Immun Denies itchy eyes and Denies seasonal rhinorrhea Physical Exam Vital Signs: Last Vital Signs Pulse 53 12/07/24 09:35 BP 124/72 12/07/24 09:35 Pulse Ox 99 12/07/24 09:35 Oxygen Delivery Method Room Air 12/07/24 09:35 BMI result Body Mass Index 26.3 Const General: cooperative, healthy appearing, comfortable, no acute distress, well developed and alert Orientation/consciousness: patient oriented x3 Limitations: no limitations HEENT Head: Yes normal to inspection, Yes normocephalic and Yes atraumatic Ears: hearing grossly normal bilaterally and external ears normal Eyes General: appearance normal, both eyes and all related structures Eyelids: Yes eyelids normal Sclerae: sclerae normal EOM: EOMs intact bilaterally Neck Neck: Yes normal visual inspection and Yes no lymphadenopathy Lymphatic: no lymphadenopathy noted Chest Chest palpation & inspection: normal inspection of the chest Resp Effort & Inspection: normal respiratory effort, able to speak in complete sentences, no audible wheezes, no cough, no stridor, not tachypneic, no tripod positioning and no use of accessory muscles Auscultation: diminished lung sounds Cardio Jugular venous distension: no JVD Rate: regular rate Rhythm: regular rhythm Skin Other: warm, dry General skin exam: no rashes or lesions noted Neuro General: patient oriented x3 Cranial nerves: Yes Normal hearing present Cognition (Neuro): normal cognition Gait exam (Neuro): Normal gait present Extrem General: Yes normal to inspection, Yes capillary refill normal, Yes no clubbing, cyanosis or edema and Yes no pedal edema Psych Appearance: grossly normal and well kempt Speech and movement: Normal speech and movement present and Clear speech present Affect: normal affect Attitude: cooperative Thought process: Normal thought process present Thought content: Normal thought content present Insight: Good insight present (Psych) Judgement: Good judgement present (Psych) Assessment & Plan Assessment & Plan (1) Non-small cell cancer of left lung: Code(s): C34.92 - Malignant neoplasm of unspecified part of left bronchus or lung Category: Medical (2) Lung mass: Code(s): R91.8 - Other nonspecific abnormal finding of lung field Category: Medical (3) Hemoptysis: Code(s): R04.2 - Hemoptysis Category: Medical (4) COPD (chronic obstructive pulmonary disease): Code(s): J44.9 - Chronic obstructive pulmonary disease, unspecified Category: Medical Qualifiers: COPD type: emphysema Emphysema type: unspecified Qualified Code(s): J43.9 - Emphysema, unspecified (5) Personal history of tobacco use: Code(s): Z87.891 - Personal history of nicotine dependence Category: Social Hx Plan Discussed treatment plan through oncology, rad/onc and thoracic surgery for known metastatic lung non-small cell carcinoma. He expressed frustration with current rad/onc through [facility] due to communication and interested in referral to [facility], will enter. At this time reports intermittent respiratory symptoms, however reluctant to use Breo. Will send albuterol MDI PRN. Once he has evaluation with dentist, he will consider use of Breo. He will call if symptoms change. All questions were answered and patient is in agreement of plan. Will follow up in 8-10 weeks or sooner if needed. Orders: Referrals Radiation Oncology Referral C34.92 - Malignant neoplasm of unspecified part of left bronchus or lung Medications: New albuterol sulfate 90 mcg/actuation 2 puffs inhalation Q4-6H PRN 1 ea 4RF shortness of breath or wheezing Coding Level of Care Code Est Pt Level 4 (59702) Complex EM visit Add On G2211 Diagnoses Non-small cell cancer of left lung C34.92 Lung mass R91.8 Hemoptysis R04.2 Pulmonary emphysema, unspecified emphysema type J43.9 COPD type: emphysema Emphysema type: unspecified Personal history of tobacco use Z87.891
[2024-12-07 09:35] VITALS: BP 124/72; PULSE 53; O2SAT 99; BMI 26.3
== END 2024-12-07 10:54 | disposition home or self-care (01) ==
LOC: HO.HPSW 09:32
PROVIDERS: PCP Internal Medicine; Visit Provider Nurse Practitioner Family
DX: C34.92 Malignant neoplasm of unspecified part of left bronchus or lung (principal); R91.8 Other nonspecific abnormal finding of lung field; R04.2 Hemoptysis; J43.9 Emphysema, unspecified; Z87.891 Personal history of nicotine dependence
CPT/HCPCS: 99214; G2211

== ENCOUNTER → 2024-12-07 09:31 | Outpatient (BNVA) | payer MEDICARE, MEDICAID, SELFPAY | PROVIDERS: PCP Internal Medicine; Visit Provider Nurse Practitioner Family | DX: C34.92 Malignant neoplasm of unspecified part of left bronchus or lung (principal); R04.2 Hemoptysis; R91.8 Other nonspecific abnormal finding of lung field; J43.9 Emphysema, unspecified; Z87.891 Personal history of nicotine dependence | CPT/HCPCS: 99212 ==

== ENCOUNTER 2025-02-08 10:56 | Outpatient (AMB) | payer MEDICARE, MEDICAID, SELFPAY ==
--- OUTSIDE RECORDS SUMMARY | 2024-06-06 03:30 | XMS_ITS ---
Author Organization [facility] Address [address] [place] [phone] Care Team Providers Care Drum Straightener Name Role Phone Caitlin AUSTIN, Harrison Primary Care Provider Unavaila Mark Gabriel Unavailable [phone] REASON FOR VISIT screening,hx polyps, gerd Encounters Encounter Location Date Provider Diagnosis [facility] [address] [place] [phone] 06/06/2024 Mark Combs Plan Of Treatment No Information Progress Notes * LEONID DON SDOB:1955 (70 yo M)Acc No.[id number]:06/06/2024 EGD and COL/MAC Patient: Raysa SIERRACELIA LEONID Iqra Provider: Maya Combs MD :1955 A ge:69 Y S ex:Male Date:06/06/2024 Address:[address], [id number] Pcp:Harrison Tucker MD Subjective: * Chief Complaints: [...] Combs MD Date: 08/07/2023 Generated for [place]/Juan Pablo/eTransmitting on: 0 02/08/2025 11:01 AM EDT
--- NOTE | 2025-02-08 10:54 | A.OFFVIS_ITS ---
Vital Signs 02/08/25 10:59 Height 5 ft 8 in Weight 177 lb 6 oz BMI 27.0 BP 150/72 H Blood Pressure Location Rt brachial Position Sitting Pulse 73 Pulse Source Pulse Oximeter Pulse Oximetry (%) 99 Oxygen Delivery Method Room Air Intake Visit Reasons: COPD Allergies Uizcnmv-RSP-ZnI Reductase Inhibitor (XEYONYC-NQQ-SXO REDUCTASE INHIBITOR) Allergy (Mild, Verified 02/08/25 11:03) Muscle Pain HPI HPI COPD: Details: Juan is a pleasant 70 year old male, former 60+ pack year smoker, quit 2015 with underlying metastatic lung non-small cell carcinoma with brain METS, h/o [place] s/p bare meal stents 2015 on ASA, AAA 6.5 cm s/p repair 09/2024, GERD, HTN and CAD. He was initially referred by PCP after recent abnormal chest CT 09/09/24 which revealed 5.5 cm x 6.6 cm x 4.1cm left lower lung mass. PET 09/14/24 revealed FDG activity left lung mass, SUV 7.8 as well as left hilar lymphadenopathy, SUV max 5.8. On 10/10/[address] Chin pathology came back revealing positive for malignancy, consistent with metastatic lung non-small cell carcinoma. He has received 5 rounds of chemotherapy under the care of Dr. Becker and will have one more round before restaging imaging. He has upcoming chest CT at [facility] and brain MRI through [facility]. He is under the care of rad/onc through [facility]. Last brain MRI did reveal response to chem with both lesions decreasing in size, therefore holding off on whole brain radiation at this time. Overall patient tolerating well and keeping in good spirits. He has been walking multiple times per week with little no to respiratory symptoms, has not required the use of any respiratory medications. He denies cough, wheezing or chest tightness. [facility] Medical History HTN (hypertension) GERD (gastroesophageal reflux disease) Emphysema, unspecified Wears dentures Arthritis AAA (abdominal aortic aneurysm) Myocardial infarction Elevated cholesterol CAD (coronary artery disease) Surgical History History of AAA (abdominal aortic aneurysm) repair (09/28/24) History of esophagogastroduodenoscopy (EGD) H/O colonoscopy Hx of heart artery stent History of cataract surgery History of ear surgery History of neck surgery History of appendectomy Family History Other Substance use disorder Social History Household Members: None Housing: Apartment Are you a primary career technical education teacher to a significant other at home: No Do you presently have visiting nurse or other home services: No Alcohol intake: current Alcohol intake frequency: holidays/special occasions only Alcohol type: wine Patient Tobacco Use Status: Former Tobacco user Tobacco use type: Cigarette Cigarette Packs Per Day: 1.5 Years Smoked: 45 e-Cigarette/Vaping Use: Never Used Second Hand Smoke Exposure: No Substance Use Type: Marijuana service: Yes Current occupational status: retired Current occupational exposures/hazards: No Cognitive needs: No Hearing needs: No Vision needs: No Review of Systems Const Denies chills, Denies excessive sweating, Denies fever(s) and Denies night sweats Eyes Denies dry eyes, Denies irritation and Denies itchy eyes ENT Reports Normal hearing present, Denies nasal congestion, Denies nasal discharge, Denies post nasal drip and Denies sore throat Card Denies chest pain, Denies chest pain at rest, Denies chest pain with activity, Denies claudication, Denies leg edema, Denies dyspnea on exertion, Denies orthopnea and Denies paroxysmal nocturnal dyspnea Resp Denies change in phlegm color, Denies chest congestion, Denies cough, Denies hemoptysis, Denies excessive phlegm production, Denies pain on inspiration, Denies pain with cough, Denies dyspnea on exertion, Denies stridor and Denies wheezing Musc Denies myalgias Neuro Reports Normal hearing present Endo Denies excessive sweating Rush/Lymph Denies lymphadenopathy Aller/Immun Denies itchy eyes, Denies seasonal rhinorrhea and Denies wheezing Physical Exam Vital Signs: Last Vital Signs Pulse 73 02/08/25 10:59 BP 150/72 H 02/08/25 10:59 Pulse Ox 99 02/08/25 10:59 Oxygen Delivery Method Room Air 02/08/25 10:59 BMI result Body Mass Index 27.0 Const General: cooperative, comfortable, no acute distress and alert Orientation/consciousness: patient oriented x3 Limitations: no limitations HEENT Head: Yes normal to inspection, Yes normocephalic and Yes atraumatic Ears: hearing grossly normal bilaterally and external ears normal Eyes General: appearance normal, both eyes and all related structures Eyelids: Yes eyelids normal Sclerae: sclerae normal EOM: EOMs intact bilaterally Neck Neck: Yes normal visual inspection and Yes no lymphadenopathy Lymphatic: no lymphadenopathy noted Chest Chest palpation & inspection: normal inspection of the chest Resp Effort & Inspection: normal respiratory effort, able to speak in complete sentences, no audible wheezes, no cough, no stridor, not tachypneic, no tripod positioning and no use of accessory muscles Auscultation: diminished lung sounds Cardio Jugular venous distension: no JVD Rate: regular rate Rhythm: regular rhythm Skin Other: warm, dry General skin exam: no rashes or lesions noted Neuro General: patient oriented x3 Cranial nerves: Yes Normal hearing present Cognition (Neuro): normal cognition Gait exam (Neuro): Normal gait present Extrem General: Yes normal to inspection, Yes capillary refill normal, Yes no clubbing, cyanosis or edema and Yes no pedal edema Psych Appearance: grossly normal and well kempt Speech and movement: Normal speech and movement present and Clear speech present Affect: normal affect Attitude: cooperative Thought process: Normal thought process present Thought content: Normal thought content present Insight: Good insight present (Psych) Judgement: Good judgement present (Psych) Assessment & Plan Assessment & Plan (1) Non-small cell cancer of left lung: Code(s): C34.92 - Malignant neoplasm of unspecified part of left bronchus or lung Category: Medical (2) Lung mass: Code(s): R91.8 - Other nonspecific abnormal finding of lung field Category: Medical (3) COPD (chronic obstructive pulmonary disease): Code(s): J44.9 - Chronic obstructive pulmonary disease, unspecified Category: Medical Qualifiers: COPD type: emphysema Emphysema type: unspecified Qualified Code(s): J43.9 - Emphysema, unspecified (4) Personal history of tobacco use: Code(s): Z87.891 - Personal history of nicotine dependence Category: Social Hx Plan At this time reports intermittent respiratory symptoms, with known COPD, however does not feel he needs any respiratory therapy at this time. He has also been monitoring oxygen saturation at home never below 95%. He is aware to call if symptoms change. He has upcoming chest CT and brain MRI for restaging. Brain lesions have been responded to chemo and will review chest CT to see if there has been response within the lungs. He is following closely with Dr. Becker as well as rad/onc through [facility]. All questions were answered and patient is in agreement of plan. Will follow up in 10-12 weeks or sooner if needed. Coding Level of Care Code Est Pt Level 4 (06156) Diagnoses Non-small cell cancer of left lung C34.92 Lung mass R91.8 Pulmonary emphysema, unspecified emphysema type J43.9 COPD type: emphysema Emphysema type: unspecified Personal history of tobacco use Z87.891
[2025-02-08 10:59] VITALS: BP 150/72; PULSE 73; O2SAT 99; BMI 27.0
--- OUTSIDE RECORDS SUMMARY | 2025-02-08 11:01 | XMS_ITS | Clinical Summary ---
Author Organization [facility] Address [address] [place] [phone] Phone Care Team Providers Care Preform Plate Maker Name Role Phone Bhanu Gamino Palak MCKEON Primary Care Provider [phone] Allergies Active Allergy Reactions Criticality Noted Date Comments Atorvastatin 11/23/2024 Other Reaction(s): muscle pain myopathy Evolocumab 11/23/2024 Pravastatin 11/23/2024 myopathy Rosuvastatin 11/23/2024 myopathy Medications metoprolol succinate (TOPROL-XL) 50 mg 24 hr tablet Take 1 tablet (50 mg total) by mouth. 06/11/2024 Active omeprazole 20 mg tablet,disintegr at, delay rel Take 20 mg by mouth every other day. 03/02/2019 Active cholecalciferol (VITAMIN D-3) 50 mcg (2,000 unit) tablet Take 1 tablet (2,000 Units total) by mouth 1 (one) time each day. 10/26/2024 Active clopidogreL (PLAVIX) 75 mg tablet Take 1 tablet (75 mg total) by mouth 1 (one) time each day. Active folic acid (FOLVITE) 1 mg tablet Take by mouth 1 (one) time each day. Active dexAMETHasone (DECADRON) 4 mg tablet Take 1 tablet (4 mg total) by mouth 2 (two) times a day. Today, Active ondansetron (ZOFRAN) 8 mg tablet Take 1 tablet (8 mg total) by mouth every 8 (eight) hours if needed for nausea or vomiting. Active Active Problems Problem Noted Date Diagnosed Date CAD in [place] artery 11/20/2024 Abdominal aortic aneurysm (A AA) without rupture (CMS/HCC V24) 11/20/2024 Chronic gastritis without bleeding 11/20/2024 Diarrhea 11/20/2024 Gallstones 11/20/2024 Gastric and duodenal angiodysplasia 11/20/2024 Gastroesophageal reflux disease 11/20/2024 History of adenomatous polyp of colon 11/20/2024 Hypercholesteremia 11/20/2024 Acute myocardial infarction ([facility] V24, [facility] V28) 11/20/2024 Other somatoform disorders 11/20/2024 Encounters Date Type Department Care Team Description 11/23/2024 8:38 AM EDT - 11/23/2024 11:59 PM EDT Hospital Encounter [facility] [address] [place] [phone] Yi Lopez MD Non-small cell lung cancer metastatic to brain ([facility] V24, [facility] V28) Discharge Disposition: Home or Self Care 11/23/2024 8:38 AM EDT - 11/23/2024 11:59 PM EDT Hospital Encounter [facility] [address] [place] [phone] Discharge Disposition: Home or Self Care 11/20/[address] [facility] [address] [place] [phone] Luh Anand MA from Last 3 Months Surgical History Surgery Date Site/Laterality Comments AAA REPAIR APPENDECTOMY CARDIAC SURGERY Medical History Medical History Date Comments AAA (abdominal aortic aneurysm) ([facility] V24) CAD (coronary artery disease) Gastritis [place] (myocardial infarction) ([facility] V24, [facility] V28) Lung cancer ([facility] V24, [facility] V28) Cervical spondylolysis Family History Medical History Relation Name Comments Lung cancer Father 9 cancers due t o asbetos Lung cancer Paternal Grandfather Relation Name Status Comments Father Paternal Grandfather Social History Tobacco Use Types Packs/Day Years Used Date Smoking Tobacco: Former Cigarettes Smokeless Tobacco: Never Alcohol Use Standard Drinks/Week Comments Never 0 (1 standard drink = 0.6 oz pur e alcohol) Sex and Gender Information Value Date Recorded Sex Assigned at Not on file Legal Sex Male 2:44 PM EDT Gender Identity Not on file Sexual Orientation Not on file Occupation Industry Job Start Date Job End Date disabled Not on file Not on file Not on file Obstetrics History Last Filed Vital Signs Vital Sign Reading Time Taken Comments Blood Pressure 116/68 11/23/2024 9:27 AM EDT Pulse 51 11/23/2024 9:27 AM EDT Temperature 35.8 C (96.4 F) 11/23/2024 9:27 AM EDT Respiratory Rate 16 11/23/2024 9:27 AM EDT Oxygen Saturation 97% 11/23/2024 9:27 AM EDT Inhaled Oxygen Concentration - - Weight - - Height 177.8 cm (5' 10 ) 11/23/2024 9:27 AM EDT Body Mass Index - - Plan of Treatment Health Maintenance Due Date Last Done Comments Pneumococcal Vaccine: 50+ Years (1 of 2 - PCV) 02/01/1975 RSV Immunization Adult Patients (1 - Risk 60-74 years 1-dose series) 2016 Depression Screening 06/20/2024 Cholesterol Screening (Lipid Panel) 09/14/2024 Colorectal Cancer Screening: Colonoscopy 09/14/2024 Falls Risk Assessment 09/14/2024 Hepatitis C Screening 09/14/2024 Medicare Annual Wellness Visit 09/14/2024 Social Influencers of Health Screening 09/14/2024 Hypertension/CHF/CAD Annual BMP Blood Test 11/20/2024 Influenza Vaccine (#1) 2025 , 06/25/2023, 05/27/2022 COVID-19 Vaccine ( season) 2025 09/08/2024, 06/25/2023, 05/27/2022, Additional history exists DTaP,Tdap,and Td Vaccines (2 - Td or Tdap) 02/12/2029 02/12/2019 Zoster Vaccines Completed 12/26/2018, 10/22/2018 HIB Vaccines Aged Out No longer eligi [...] on patient's age to complete this topic Insurance MEDICARE MEDICAID - [place] Care Teams Preform Plate Maker Relationship Specialty Start Date End Date Bhanu Gamino FNP [address] [place] [address] PCP - General Family Medicine 11/20/24
== END 2025-02-08 11:29 | disposition home or self-care (01) ==
LOC: HO.HPSW 10:57
PROVIDERS: PCP Internal Medicine; Visit Provider Nurse Practitioner Family
DX: C34.92 Malignant neoplasm of unspecified part of left bronchus or lung (principal); R91.8 Other nonspecific abnormal finding of lung field; J43.9 Emphysema, unspecified; Z87.891 Personal history of nicotine dependence
CPT/HCPCS: 99214

== ENCOUNTER → 2025-02-08 10:56 | Outpatient (BNVA) | payer MEDICARE, MEDICAID, SELFPAY | PROVIDERS: PCP Internal Medicine; Visit Provider Nurse Practitioner Family | DX: C34.32 Malignant neoplasm of lower lobe, left bronchus or lung (principal); R91.8 Other nonspecific abnormal finding of lung field; J43.9 Emphysema, unspecified; Z87.891 Personal history of nicotine dependence | CPT/HCPCS: 99212 ==

== ENCOUNTER 2025-02-27 07:55 | Outpatient (REF) | payer MEDICARE, MEDICAID, SELFPAY ==
--- OUTSIDE RECORDS SUMMARY | 2024-06-06 03:30 | XMS_ITS ---
Author Organization [facility] Address [address] [place] [phone] Care Team Providers Care Fish Drier Name Role Phone Caitlin AUSTIN, Harrison Primary Care Provider Unavaila Mark Gabriel Unavailable [phone] REASON FOR VISIT screening,hx polyps, gerd Encounters Encounter Location Date Provider Diagnosis [facility] [place] [address] [place] [phone] 06/06/2024 Mark Combs Plan Of Treatment No Information Progress Notes * LEONID DON SDOB:1955 (70 yo M)Acc No.[id number]:06/06/2024 EGD and COL/MAC Patient: Raysa SIERRACELIA LEONID Iqra Provider: Maya Combs MD :1955 A ge:69 Y S ex:Male Date:06/06/2024 Address:[address] [place] Pcp:Harrison Tucker MD Subjective: * Chief Complaints: * 1 . Screening,hx polyps, gerd. * Medical History: Objective: * Vitals: Assessment: Plan: * Treatment: * * The named appointment provid er may or may not be the originator of this progress note, and it is not deemed complete until electronically signed by the appointment provider. Sign off status: Pending * Provider: Maya Combs MD Date: 08/07/2023 Generated for [place]/Fasiobhang/eTransmitting on: 0 02/27/2025 08:01 AM EDT
--- NOTE | 2025-02-11 09:32 | MHC.HEMONCSW ---
Juan called asking when his next chemo date/ride would be and for the transportation phone number again, so I called back and provided him this information.
--- NOTE | ~2025-02-27 | CT_ITS ---
EXAMINATION: CT CHEST WITH CONTRAST CLINICAL INFORMATION: Follow-up non-small cell lung. COMPARISON: August 29, 2024. TECHNIQUE: Multidetector volumetric CT imaging of the chest was obtained after the administration of 65 mL of Omnipaque 350 intravenous contrast without immediate adverse reactions. Axial MIP volume rendering provided. Sagittal and coronal reformatted images were obtained. This CT examination was performed using dose optimization techniques as appropriate, variously including the following: *Automated exposure control *Adjustment of mA and/or kV according to patient size (this includes techniques or standardized protocols for targeted exams where dose is matched to indication/reason for exam; i.e. extremities or head) *Use of iterative reconstruction technique DLP: 174 mGy centimeter. FINDINGS: GROCERY PACKER: Lobulated opacity left lower hemithorax. No hyperinflation. Cardiomediastinal silhouette size is normal. Metallic stenting, abdominal aorta. Metallic plate in the lower cervical spine likely anterior cervical fusion. LUNGS: There is a lobulated, 43 x 70 x 38 mm low density mass in the anterior left lower lung lobe abutting the major fissure. There is lesion measures 16 Hounsfield units. There are few satellite less than 10 mm lobulated nodules. Paraseptal and centrilobular emphysematous changes. Apical lung scarring, bilaterally. Patchy pulmonary groundglass, left upper lung lobe and right middle lung lobe. MEDIASTINUM: There is an 8 mm lobulated low density in the left pulmonary hilum. There is a 21 mm fluid density in the subcarinal/left mainstem bronchus. There is a 6 mm right pretracheal and periaortic lymph nodes. No aneurysm or dissection, thoracic aorta. Calcified plaques in the coronary arteries. Trace of pericardial effusion. No pneumomediastinum. The heart is not enlarged. No hemopericardium. The thyroid gland is not enlarged with the multifocal less than 6 mm low density nodules likely colloidal cysts. PLEURA: No pleural effusion. No pneumothorax. No calcified pleural plaques. No hemothorax. AXILLA: No lymphadenopathy. UPPER ABDOMEN: Decreased enhancement of the liver. There is a 14 mm heterogeneous enhancing lesion in the periphery of the right hepatic lobe. Low density nodular lesions within the lumen of the contracted gallbladder. There is a stent within the suprarenal and infrarenal abdominal aorta with stents in both main renal arteries. The infrarenal abdominal aorta diameter measures 48 mm with an anterior compression shaped low density plaque. Small accessory spleen. There is a 20 mm low-density nodule measuring 14 Hounsfield units centered in the right adrenal gland. Small gas-filled diverticulum, second portion of the duodenum. . OSSEOUS STRUCTURES: Multilevel spondylosis without acute fracture or listhesis. Status post anterior cervical fusion C5-6 no fully included in the [id number]. No gross lytic or blastic lesions CT/CT chest w IV con IMPRESSION: Overall slight decreased size and density of the lobulated lesion/mass left lower lung lobe and nearly resolved lymphadenopathy, left perihilar. Overall improved since prior exam Additional findings are stable.. Fleischner guidelines were followed. Electronically signed by: Ivan Robles MD 02/27/2025 08:50 AM EDT
--- OUTSIDE RECORDS SUMMARY | 2025-02-27 08:01 | XMS_ITS | Clinical Summary ---
Author Organization [facility] Address [address] [place] [phone] Phone Care Team Providers Care Php Website Developer Name Role Phone Bhanu Gamino Palak MCKEON Primary Care Provider [phone]- [phone] Allergies Active Allergy Reactions Criticality Noted Date [...] Problem Noted Date Diagnosed Date CAD in [place] artery 11/20/2024 Abdominal aortic aneurysm (A AA) without rupture (CMS/HCC V24) 11/20/2024 Chronic gastritis without bleeding 11/20/2024 Diarrhea 11/20/2024 Gallstones 11/20/2024 Gastric and duodenal angiodysplasia 11/20/2024 Gastroesophageal reflux disease 11/20/2024 History of adenomatous polyp of colon 11/20/2024 Hypercholesteremia 11/20/2024 Acute myocardial infarction ([facility] V24, [facility] V28) 11/20/2024 Other somatoform disorders 11/20/2024 Surgical History Surgery Date Site/Laterality Comments AAA REPAIR APPENDECTOMY CARDIAC SURGERY Medical History Medical History Date Comments AAA (abdominal aortic aneurysm) ([facility] V24) CAD (coronary artery disease) Gastritis [place] (myocardial infarction) ([facility] V24, [facility] V28) Lung cancer ([facility] V24, [facility] V28) Cervical spondylolysis Family History Medical History [...] Insurance MEDICARE [place] - [place] Care Teams Php Website Developer Relationship Specialty Start Date End Date Bhanu Gamino FNP [address] [place] [address] PCP - General Family Medicine 11/20/24
--- OUTSIDE RECORDS SUMMARY | 2025-02-27 08:02 | XMS_ITS | Patient Health Record ---
Author Organization [facility] Address [address] [place] [address] Care Team Providers Care Restaurant Service Manager Name Role Phone Harrison Tucker MD Primary Care Provider Mark Vinson Unavailable [phone] Allergies Allergen (clinical drug ingredient) Drug/Non Drug Allergy documented on EMR Reaction Allergy Type Onset Date Status atorvastatin Atorvastatin Calcium muscle pain Drug Allergy Active Results Component Value Reference Range Notes US abdominal aortic aneurysm (Not yet reviewed by provider) Interpretation: Performing Lab: Notes/Report: [address] [address] Ultrasound Report Signed Patient: Juan Arango MR#: [id number] : 1955 Acct:[id number] Age/Sex: 69 / M ADM Date: 06/05/24 Loc: . Attending Dr: Mark Combs MD Ordering Physician: Mark Combs MD Date of Service: 06/05/24 Procedure(s): US abdominal aortic aneurysm Accession Number(s): [id number] cc: Harrison Tucker MD; Mark Combs MD [...] by: Payton Potter MD 06/05/2024 10:15 AM [facility] Dictated By: Payotn Potter MD Signed By: <Electronically signed by Payton Potter MD in OV> 06/05/24 1015 DD/ 0820 TD/TT: 06/05/24 0846 Gear Setter: Reason For Referral No Information Medications Medication SIG (Take, Route, Frequency, Duration) Notes Start Date End Date Status Omeprazole 20 MG TAKE 1 CAPSULE BY [facility] EVERY MORNING for 30 Active Aspir-81 81 [...] Problem Status W/U Status Risk Notes Problem 902679976 Encounter for screening for malignant neoplasm of colon (Z12.11) Active confirmed Problem History of adenomatous polyp of colon (576649472) History of adenomatous polyp of colon (Z86.010) Active confirmed Problem Diarrhea (95257778) Diarrhea (R19.7) Active con firmed Problem Screening for malignant neoplasm of rectum (875194004) Encounter for screening for malignant neoplasm of rectum (Z12.12) Active confirmed Problem 877568297 Gallstones (K80.20) Active confirmed Problem 431900362 Long-term use of aspirin therapy (Z79.82) Active confirmed Problem 521726687 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) Active confirmed Problem Gastroesophageal reflux disease (164937985) GERD without esophagitis (K21.9) Active confirmed Problem 8371951 Chronic gastriti s without bleeding, unspecified gastritis type (K29.50) Active confirmed Problem 16842250 Globus sensation (F45.8) Active confirmed Problem 66403232 Globus pharyngeu s (F45.8) Active confirmed Problem Abdominal aortic aneurysm without rupture (disorder) (56536716) Abdominal aortic aneurysm, without rupture, unspecified (I71.40) Active confirmed Problem Gastroesophageal reflux disease (disorder) (000479970) Chronic GERD (K21.9) Active confirmed Encounters Encounter Location Date Provider Diagnosis [facility] [address] [place] [phone] 05/31/2024 Mark Combs Chronic GERD K21.9 [facility] [address] [place] [phone] 06/05/2024 Mark Combs [facility] [address] [place] [phone] 06/05/2024 Mark Combs Abdominal aortic aneurysm, without rupture, unspecified I71.40 [facility] [address] [place] [phone] 06/05/2024 Mark Combs [facility] [address] [place] [phone] 08/26/2024 Mark Combs Assessments Encounter Date Diagnosis (ICD Code) Assessment Notes Treatment Notes Treatment Clinical Notes Section Notes 05/31/2024 Chronic GERD (ICD-10 - K21.9) 06/05/2024 Abdominal aortic aneurysm, without rupture, unspecified (ICD-10 - I71.40) Plan Of Treatment Pending Test Test Name Order Date US ABD AORTA 06/05/2024 US abdominal aortic aneurysm 06/05/2024 Future Test Test Name Order Date COLONOSCOPY 06/01/2016 UPPER GI ENDOSCOPY 07/13/2018 COLONOSCOPY 02/23/2024 UPPER GI ENDOSCOPY 05/31/2024 Insurance Providers Payer Name Payer Address Payer Phone Subscriber Number Group Number Insured Name Patient Relationship to Insured Coverage Start Date Coverage End Date MED[place]ARE OF [place] [address] [place] [address] [id number] JUAN ARANGO Self - patient is the insured MEDICAID [facility] [address] [place] [phone] [id number] JUAN ARANGO Self - patient is the insured Medical (General) History Medical History History ICD Code Heart attack 09/11/2015--2 st ents--at [facility]--fine since then--sees Dr. Francisco at [facility] Arthritis in spine Abdominal aortic aneurysm Negative colonoscopy > 10 yr s ago at [facility] for evaluation of rectal bleeding--he describes the finding of hemorrhoids Denies DM,CVA,Lung disease,renal disease Gallstones-asymptomatic Colonoscopy 10/2016--2 tubular adenomas r emoved EGD in 07/2018--erosive gastr itis, bx neg for Hpylori; AVM's nonbleeding; no esophagitis Surgical History Surgery Date(Month/Year) Cervical spondylosis 1998 Appendectomy 1964 Cataract surgery bilateral
[2025-02-27] MEDS: iohexoL 350 MG/ML 100 ML INFUS..BTL IV (08:25)
== END 2025-02-27 07:56 | disposition home or self-care (01) ==
LOC: HO.CT 07:55
PROVIDERS: Visit Provider Internal Medicine Medical Oncology
DX: C34.90 Malignant neoplasm of unspecified part of unspecified bronchus or lung (principal)
CPT/HCPCS: 71260; Q9967

== ENCOUNTER → 2025-02-27 07:57 | Outpatient (BNV) | payer MEDICARE, MEDICAID, SELFPAY | PROVIDERS: Visit Provider Radiology Diagnostic Radiology | DX: C34.92 Malignant neoplasm of unspecified part of left bronchus or lung (principal) | CPT/HCPCS: 71260 ==

== ENCOUNTER 2025-03-12 08:41 | Outpatient (AMB) | payer MEDICARE, MEDICAID, SELFPAY ==
--- OUTSIDE RECORDS SUMMARY | 2024-06-06 03:30 | XMS_ITS ---
Author Organization [facility] Address [address] [place] [phone] Care Team Providers Care Room Service Food Server Name Role Phone Caitlin AUSTIN, Harrison Primary Care Provider Unavaila Mark Gabriel Unavailable [phone] REASON FOR VISIT screening,hx polyps, gerd Encounters Encounter Location Date Provider Diagnosis [facility] [address] [place] [phone] 06/06/2024 Mark Combs Plan Of Treatment No Information Progress Notes * LEONID DON SDOB:1955 (70 yo M)Acc No.[id number]:06/06/2024 EGD and COL/MAC Patient: Raysa SIERRACELIA LEONID Iqra Provider: Maya Combs MD :1955 A ge:69 Y S ex:Male Date:06/06/2024 Address:[address], [id number] Pcp:Harrison Tucker MD Subjective: * Chief Complaints: [...] Pending * Provider: Maya Combs MD Date: 1 08/07/2023 Generated for [place]/Fasiobhang/eTransmitting on: 0 03/12/2025 09:41 AM EDT
[2025-03-12 08:43] VITALS: BP 140/80; PULSE 82; TEMP 36.2; O2SAT 98; BMI 26.5
--- NOTE | 2025-03-12 08:43 | MHC.PC.OV ---
Vital Signs 03/12/25 08:43 Height 5 ft 8 in Weight 174 lb 2 oz BMI 26.5 BP 140/80 H Blood Pressure Location Lt brachial Position Sitting Pulse 82 Pulse Source Pulse Oximeter Temp 97.1 F Temp Source Temporal Artery Scan Pulse Oximetry (%) 98 Oxygen Delivery Method Room Air Intake Visit Reasons: LUNG CA/restless legs/GERD/emphysema Allergies Tqplins-WEU-UiD Reductase Inhibitor (BYSBMUC-VBG-APZ REDUCTASE INHIBITOR) Allergy (Mild, Verified 03/12/25 09:35) Muscle Pain Medication List - Last Reconciled 03/12/25 by HELEN Braden albuterol sulfate 90 mcg/actuation 2 puffs inhalation Q4-6H PRN aspirin 81 mg PO DAILY Breo Ellipta 200-25 mcg/dose (fluticasone furoate-vilanterol) 1 inh inhalation DAILY NS cholecalciferol (vitamin D3) (Vitamin D3) 50 mcg PO DAILY dexamethasone 4 mg PO BID folic acid 1 mg PO DAILY gabapentin 300 mg PO BEDTIME metoprolol succinate ER 50 mg PO DAILY omeprazole 20 mg PO Q OTHER DAY ondansetron 8 mg PO Q8H sildenafil (Viagra) 50 mg PO DAILY PRN Tobacco use date assessed: 03/12/25 Fall risk assessment: No Falls in past year Last assessed Fall Risk: 03/12/25 Dental Screening Dental Screen Date: 03/12/25 Did you have a dental visit in the last 12 months?: No Did you have a dental problem in the last 6 months where you did not have access to dental care?: No Was dental information given to patient?: No HPI LUNG CA/restless legs/GERD/emphysema HPI Details The patient is a 70-year-old male presenting with leukopenia. The leukopenia was noted with a white blood cell count of 2.8, which had previously fluctuated between 1.5 and 4.5. The patient suspects that the consumption of fresh fruit, specifically in a milkshake, may have contributed to the current leukopenia episode. The patient has a history of lung cancer and emphysema, which have contributed to episodes of nausea and vomiting, particularly during chemotherapy. The patient has experienced a metallic taste, loss of appetite, and significant fatigue, which have been exacerbated by insomnia. The patient has been undergoing chemotherapy, with the last session occurring on January 23, and reports that symptoms typically manifest a week after treatment. The patient also reports a history of brain cancer, with brain tumors present, and a lung tumor described as the size of a softball or baseball. The patient has been managing symptoms with medications such as ondansetron for nausea and gabapentin for sleep, although there have been issues with prescription refills. The patient has cataracts, which were surgically addressed last year, and reports increased tearing, particularly in poonam conditions. The patient has also experienced gastrointestinal symptoms, including constipation and diarrhea, which have been transient. january 23 last chem metallic taste and feeling tired reports that this last one he did not have any symptom this time recurrent elevated random glucose and report that he was fasting. We will do a a1c in office Report [facility] Medical History HTN (hypertension) GERD (gastroesophageal reflux disease) Emphysema, unspecified Wears dentures Arthritis AAA (abdominal aortic aneurysm) Myocardial infarction Elevated cholesterol CAD (coronary artery disease) Surgical History History of AAA (abdominal aortic aneurysm) repair (09/28/24) History of esophagogastroduodenoscopy (EGD) H/O colonoscopy Hx of heart artery stent History of cataract surgery History of ear surgery History of neck surgery History of appendectomy Family History Other Substance use disorder Social History Household Members: None Housing: Apartment Are you a primary progressive care unit registered nurse to a significant other at home: No Do you presently have visiting nurse or other home services: No Alcohol intake: current Alcohol intake frequency: holidays/special occasions only Alcohol type: wine Patient Tobacco Use Status: Former Tobacco user Tobacco use type: Cigarette Cigarette Packs Per Day: 1.5 Years Smoked: 45 e-Cigarette/Vaping Use: Never Used Second Hand Smoke Exposure: No Substance Use Type: Marijuana service: Yes Current occupational status: retired Current occupational exposures/hazards: No Cognitive needs: No Hearing needs: No Vision needs: No Questionnaire PHQ-9 Over the last 2 weeks, how often have you been bothered by any of the following problems? 1. Little interest or pleasure in doing things: not at all 2. Feeling down, depressed, or hopeless: not at all 3. Trouble falling or staying asleep, or sleeping too much: nearly every day 4. Feeling tired or having little energy: several days 5. Poor appetite or overeating: not at all 6. Feeling bad about yourself - or that you are a failure or have let yourself or your family down: not at all 7. Trouble concentrating on things, such as reading the newspaper or watching television: not at all 8. Moving or speaking so slowly that other people could have noticed. Or the opposite - being so fidgety or restless that you have been moving around a lot more than usual: not at all 9. Thoughts that you would be better off or of hurting yourself in some way: not at all Total score: 4 Depression Screening Interpretation: Positive Depression Screening Done: Yes Source: Developed by Drs. Mark Castaneda, Monica Morrissey, Wong Valverde and colleagues, with an educational john from [employer]. Thrive Questionnaire Date Thrive assessed: 11/07/24 I am a: Patient What is your living situation today?: I have a steady place to live Within the past 12 months, did the food you bought not last and you didn't have the money to get more?: Never true Within the past 12 months, did you worry whether your food would run out before you got money to buy more?: Never true Do you have trouble paying for medicines?: No Do you have trouble getting transportation to medical appointments?: I choose not to answer this question Do you have trouble paying your heating and electricity bill?: No Do you have trouble taking care of your child, family member or friend?: No Do you have trouble with day-to-day activities such as bathing, preparing meals, shopping, managing finances, etc.?: No Are you currently unemployed and looking for a job?: No Are you interested in more education?: No Currently or been in a relationship where the following occur: No concerns reported THRIVE Score: 0 AUDIT C Alcohol Use Questionnaire (AUDIT-C) 1. How often do you have a drink containing alcohol?: Monthly or less 2. How many drinks containing alcohol do you have on a typical day when you are drinking?: 1 or 2 3. How often do you have six or more drinks on one occasion?: Never Total Score: 1 RODRIGUE-7 AMB Questionnaire RODRIGUE-7 Date RODRIGUE - 7 assessed: 11/07/24 Feeling nervous, anxious, or on edge: 1 = Several days Not being able to stop or control worryin = Not at all Worrying too much about different things: 1 = Several days Trouble relaxin = More than half the days Being so restless that it is hard to sit still: 0 = Not at all Becoming easily annoyed or irritable: 0 = Not at all Feeling afraid as if something awful might happen: 0 = Not at all Total RODRIGUE-7 score (0-4 normal; 5-9 mild; 10-14 moderate; 15-21 severe): 4 Source: Developed by Drs. Mark Castaneda, Monica Morrissey, Wong Valverde and colleagues, with an educational john from [employer]. Review of Systems Const Reports difficulty sleeping, Reports fatigue and Denies headache(s) Eyes Denies loss of vision and Reports other (increased tearing post-cataract surgery) ENT Denies vertigo, Denies dizziness, Denies headache(s) and Denies sore throat Card Denies chest pain, Denies leg edema, Denies lightheadedness and Reports dyspnea Resp Denies cough, Denies hemoptysis, Reports dyspnea and Denies wheezing GI Denies abdominal pain, Denies melena, Reports constipation, Reports diarrhea, Reports nausea and Denies vomiting Denies dysuria, Denies urinary frequency and Denies urinary urgency Musc Denies arthralgias, Denies joint swelling, Denies numbness and Denies tingling Neuro Denies Abnormal speech present, Denies behavioral changes, Denies vertigo, Denies dizziness, Denies headache(s), Denies loss of vision, Denies memory loss, Denies numbness and Denies tingling Psych Denies anxiety, Denies behavioral changes, Denies depression, Denies memory loss and Denies panic attacks Endo Reports fatigue Rush/Lymph Denies easy bleeding and Denies easy bruising Aller/Immun Denies wheezing Physical exam (Primary Care) Vital Signs: Last Vital Signs Temp 97.1 F 03/12/25 08:43 Pulse 82 03/12/25 08:43 BP 140/80 H 03/12/25 08:43 Pulse Ox 98 03/12/25 08:43 Oxygen Delivery Method Room Air 03/12/25 08:43 BMI result Body Mass Index 26.5 Tobacco/Smoking Status: Tobacco use Status Tobacco use date assessed 03/12/25 03/12/25 08:48 Patient Tobacco Use Status Former Tobacco user 03/12/25 08:48 Tobacco use type Cigarette 03/12/25 08:48 e-Cigarette/Vaping Use Never Used 03/12/25 08:48 PHQ-9: PHQ-9 Score PHQ-9: Total score 4 03/12/25 09:44 Depression Screening Interpretation: Positive Thrive Assessment: Date of Thrive Assessment Date Thrive assessed 11/07/24 03/12/25 08:48 Currently or been in a relationship where the following occur: No concerns reported Const General: healthy appearing, no acute distress, alert and awake Nutritional Appearance: well nourished Orientation/consciousness: oriented to person, oriented to place and oriented to time HENMT Ears: TM's normal bilaterally General nose exam: Normal nasal mucous membranes and turbinates present Eyes Conjunctivae: conjunctivae normal Sclerae: sclerae normal Pupils: Equal, round and reactive pupils present Neck Neck: Yes no lymphadenopathy and Yes no JVD Thyroid: Thyroid normal Carotids: no bruits Resp Effort & Inspection: normal respiratory effort and not tachypneic Auscultation: no crackles, no rales, no rhonchi and no wheezes Cardio Rate: regular rate Rhythm: regular rhythm Heart sounds: no murmurs and normal S1 and S2 GI Palpation (GI): Soft to palpation, nontender, no hepatomegaly and no splenomegaly Auscultation: normal bowel sounds Skin General skin exam: no rashes or lesions noted and dry skin Neuro General: oriented to person, oriented to place and oriented to time Cranial nerves: Yes Equal, round and reactive pupils present Speech: No Abnormal speech present Gait exam (Neuro): Normal gait present Motor exam (neuro): no tremor noted Extrem Right upper extremity: full ROM Left upper extremity: full ROM Right lower extremity: full ROM; no edema Left lower extremity: full ROM; no edema Psych Mental Status: mental status grossly normal Speech and movement: Normal speech and movement present Affect: normal affect Attitude: cooperative Thought process: Normal thought process present Results AMB Hemoglobin A1c AMB Hemoglobin A1c 7.7 % Last Edit by Krista Marr CMA on 03/12/25 09:51 Results Reviewed Results Reviewed: Laboratory Last Values Hgb A1c (Clinic) 7.7 % (4.0-6.0) H 03/12/25 09:51 Laboratory Tests 03/05/25 03/12/25 08:12 09:51 WBC 2.8 L RBC 2.97 L Hgb 9.1 L Hct 26.6 L MCV 89.6 MCH 30.6 MCHC 34.2 RDW 17.1 H Plt Count 280 Sodium 142 Potassium 4.2 Chloride 108 Carbon Dioxide 25 Anion Gap 13 BUN 18 H Creatinine 1.29 Estim Creat Clear Calc 52.2 Estimated GFR 55 Random Glucose 224 H Hgb A1c (Clinic) 7.7 H Calcium 8.9 Total Bilirubin 0.7 AST 49 H ALT 58 H Alkaline Phosphatase 68 Total Protein 7.0 Albumin 4.1 TSH 1.55 Hold Yellow Top See Note Coding Level of Care Code Est Pt Level 4 (32352) Diagnoses Epigastric pain R10.13 Abdominal location: epigastric Non-small cell cancer of left lung C34.92 Laterality: left Anemia, unspecified type D64.9 Anemia type: unspecified type Pulmonary emphysema, unspecified emphysema type J43.9 COPD type: emphysema Emphysema type: unspecified Chronic GERD K21.9 Hypertension, unspecified type I10 Hypertension type: unspecified Elevated cholesterol E78.00 Restless legs syndrome G25.81 Impaired fasting glucose R73.01 Vitamin D deficiency E55.9 Leukopenia, unspecified type D72.819 Leukopenia type: unspecified Time Spent (min) 41 Assessment & Plan Assessment & Plan (1) Abdominal pain: Code(s): R10.9 - Unspecified abdominal pain Category: Medical Qualifiers: Abdominal location: epigastric Qualified Code(s): R10.13 - Epigastric pain Plan: Reports intermittent abdominal pain close to epigastric region. The patient had recent AAA surgery 09/28/2024, also has history of GERD, which might be causing this discomfort intermittently as well. Encouraged to take omeprazole 20 mg daily. The patient is only taking this every other day. (2) Non-small cell carcinoma of lung: Code(s): C34.90 - Malignant neoplasm of unspecified part of unspecified bronchus or lung Category: Medical Qualifiers: Laterality: left Qualified Code(s): C34.92 - Malignant neoplasm of unspecified part of left bronchus or lung Plan: Follow up with Oncology as scheduled. The patient is undergoing chemotherapy for lung cancer, with the last session on January 23. Management includes addressing symptoms such as nausea with ondansetron and monitoring for side effects like metallic taste and fatigue. (3) Anemia: Code(s): D64.9 - Anemia, unspecified Category: Medical Qualifiers: Anemia type: unspecified type Qualified Code(s): D64.9 - Anemia, unspecified Plan: H&H is stable-hemoptysis continues intermittently, we will continue to monitor (4) COPD (chronic obstructive pulmonary disease): Code(s): J44.9 - Chronic obstructive pulmonary disease, unspecified Category: Medical Qualifiers: COPD type: emphysema Emphysema type: unspecified Qualified Code(s): J43.9 - Emphysema, unspecified Plan: Emphysema management involves monitoring respiratory symptoms and ensuring the patient has access to necessary medications. Continue Breo Ellipta 200-25 mcg/dose 1 inhalation daily Scheduled for PFT to assess severity Follow up with pulmonology as scheduled (5) Chronic GERD: Code(s): K21.9 - Gastro-esophageal reflux disease without esophagitis Category: Medical Plan: Reinforced dietary restrictions Encouraged omeprazole 20 mg daily; the patient is only taking this every other day (6) Hypertension: Code(s): I10 - Essential (primary) hypertension Category: Medical Qualifiers: Hypertension type: unspecified Qualified Code(s): I10 - Essential (primary) hypertension Plan: 140/80 pressure slightly above goal Reinforced low-salt diet Continue metoprolol succinate ER 50 mg daily (7) Elevated cholesterol: Code(s): E78.00 - Pure hypercholesterolemia, unspecified Category: Medical Plan: Last LDL was 110, 11/07/24 Reinforced low-cholesterol diet and activity as tolerated States that he stopped taking ezetimibe due to muscle cramps Lipid panel order to be completed kyle to further evaluate (8) Restless legs syndrome: Code(s): G25.81 - Restless legs syndrome Category: Medical Plan: Gabapentin 300mg at bedtime ordered (9) Impaired fasting glucose: Code(s): R73.01 - Impaired fasting glucose Category: Medical Plan: A1C 7.7% -this is new for patient Reinforced low sugar/carbohydrate diet and activity as tolerated Started to metformin 500 mg b.i.d. We will repeat fasting glucose and A1c in 3 months (10) Vitamin D deficiency: Code(s): E55.9 - Vitamin D deficiency, unspecified Category: Medical Plan: Continue cholecalciferol 50 mcg daily (11) Leukopenia: Code(s): D72.819 - Decreased white blood cell count, unspecified Category: Medical Qualifiers: Leukopenia type: unspecified Qualified Code(s): D72.819 - Decreased white blood cell count, unspecified Plan: The plan for leukopenia includes monitoring the white blood cell count and avoiding fresh fruit to prevent further episodes. The patient should continue to avoid fresh fruit, as it may contribute to leukopenia, and follow up with regular blood tests to monitor the condition. Orders: Orders Complete Blood Count Auto Diff 3 Months D64.9 - Anemia, unspecified, E11.9 - Type 2 diabetes mellitus without complications, E55.9 - Vitamin D deficiency, unspecified, I10 - Essential (primary) hypertension, I25.10 - Atherosclerotic heart disease of [place] coronary artery without angina pectoris, I71.40 - Abdominal aortic aneurysm, without rupture, unspecified, J43.9 - Emphysema, unspecified, K21.9 - Gastro-esophageal reflux disease without esophagitis, R10.13 - Epigastric pain, R73.01 - Impaired fasting glucose Comprehensive [place]. Panel Fast 3 Months D64.9 - Anemia, unspecified, E11.9 - Type 2 diabetes mellitus without complications, E55.9 - Vitamin D deficiency, unspecified, I10 - Essential (primary) hypertension, I25.10 - Atherosclerotic heart disease of [place] coronary artery without angina pectoris, I71.40 - Abdominal aortic aneurysm, without rupture, unspecified, J43.9 - Emphysema, unspecified, K21.9 - Gastro-esophageal reflux disease without esophagitis, R10.13 - Epigastric pain, R73.01 - Impaired fasting glucose Hemoglobin A1c 3 Months D64.9 - Anemia, unspecified, E11.9 - Type 2 diabetes mellitus without complications, E55.9 - Vitamin D deficiency, unspecified, I10 - Essential (primary) hypertension, I25.10 - Atherosclerotic heart disease of [place] coronary artery without angina pectoris, I71.40 - Abdominal aortic aneurysm, without rupture, unspecified, J43.9 - Emphysema, unspecified, K21.9 - Gastro-esophageal reflux disease without esophagitis, R10.13 - Epigastric pain, R73.01 - Impaired fasting glucose Vitamin D 25-OH Total 3 Months D64.9 - Anemia, unspecified, E11.9 - Type 2 diabetes mellitus without complications, E55.9 - Vitamin D deficiency, unspecified, I10 - Essential (primary) hypertension, I25.10 - Atherosclerotic heart disease of [place] coronary artery without angina pectoris, I71.40 - Abdominal aortic aneurysm, without rupture, unspecified, J43.9 - Emphysema, unspecified, K21.9 - Gastro-esophageal reflux disease without esophagitis, R10.13 - Epigastric pain, R73.01 - Impaired fasting glucose AMB Hemoglobin A1c 03/12/25 Z13.9 - Encounter for screening, unspecified UA CC w/rflx Micro + Cult 3 Months D64.9 - Anemia, unspecified, E11.9 - Type 2 diabetes mellitus without complications, E55.9 - Vitamin D deficiency, unspecified, I10 - Essential (primary) hypertension, I25.10 - Atherosclerotic heart disease of [place] coronary artery without angina pectoris, I71.40 - Abdominal aortic aneurysm, without rupture, unspecified, J43.9 - Emphysema, unspecified, K21.9 - Gastro-esophageal reflux disease without esophagitis, R10.13 - Epigastric pain, R73.01 - Impaired fasting glucose TSH reflex Free T4 3 Months D64.9 - Anemia, unspecified, E11.9 - Type 2 diabetes mellitus without complications, E55.9 - Vitamin D deficiency, unspecified, I10 - Essential (primary) hypertension, I25.10 - Atherosclerotic heart disease of [place] coronary artery without angina pectoris, I71.40 - Abdominal aortic aneurysm, without rupture, unspecified, J43.9 - Emphysema, unspecified, K21.9 - Gastro-esophageal reflux disease without esophagitis, R10.13 - Epigastric pain, R73.01 - Impaired fasting glucose Medications: New metformin 500 mg PO BID 60 tabs 3RF Refilled gabapentin 300 mg PO BEDTIME 30 caps 2RF
--- OUTSIDE RECORDS SUMMARY | 2025-03-12 09:42 | XMS_ITS | Patient Health Record ---
Author Organization [facility] Address [address] [place] [address] Care Team Providers Care Small Offset Printer Name Role Phone Harrison Tucker MD Primary Care Provider Mark Vinson Unavailable [phone] Allergies Allergen (clinical drug ingredient) Drug/Non Drug Allergy documented on EMR Reaction Allergy Type Onset Date Status atorvastatin Atorvastatin Calcium muscle pain Drug Allergy Active Results Component Value Reference Range Notes US abdominal aortic aneurysm (Not yet reviewed by provider) Interpretation: Performing Lab: Notes/Report: [address] [address] Ultrasound Report Signed Patient: Juan Arango MR#: [id number] : 1955 Acct:[id number] Age/Sex: 69 / M ADM Date: 06/05/24 Loc: . Attending Dr: Mark Combs MD Ordering Physician: Mark Combs MD Date of Service: 06/05/24 Procedure(s): US abdominal aortic aneurysm Accession Number(s): [id number] cc: Harrison Tucker MD; Mark Combs MD [...] by: Payton Potter MD 06/05/2024 10:15 AM [facility] Dictated By: Payton Potter MD Signed By: <Electronically signed by Payton Potter MD in OV> 06/05/24 1015 DD/ 0820 TD/TT: 06/05/24 0846 Human Services Assistant: Reason For Referral No Information Medications Medication [...] Problem Status W/U Status Risk Notes Problem [id number] Encounter for screening for malignant neoplasm of colon (Z12.11) Active confirmed Problem History of adenomatous polyp of colon (707617849) History of adenomatous polyp of colon (Z86.010) Active confirmed Problem Diarrhea (71292816) Diarrhea (R19.7) Active con firmed Problem Screening for malignant neoplasm of rectum (419911653) Encounter for screening for malignant neoplasm of rectum (Z12.12) Active confirmed Problem 478351360 Gallstones (K80.20) Active confirmed Problem 506787083 Long-term use of aspirin therapy (Z79.82) Active confirmed Problem 044999012 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) Active confirmed Problem Gastroesophageal reflux disease (924316443) GERD without esophagitis (K21.9) Active confirmed Problem 8628441 Chronic gastriti s without bleeding, unspecified gastritis type (K29.50) Active confirmed Problem 28569349 Globus sensation (F45.8) Active confirmed Problem 69829718 Globus pharyngeu s (F45.8) Active confirmed Problem Abdominal aortic aneurysm without rupture (disorder) (89417744) Abdominal aortic aneurysm, without rupture, unspecified (I71.40) Active confirmed Problem Gastroesophageal reflux disease (disorder) (948179169) Chronic GERD (K21.9) Active confirmed Encounters Encounter Location Date Provider Diagnosis [facility] [address] [place] [phone] 05/31/2024 Mark Combs Chronic GERD K21.9 [facility] [address] [place] [phone] 06/05/2024 Mark Combs [facility] [address] [place] [phone] 06/05/2024 Mark Combs Abdominal aortic aneurysm, without rupture, unspecified I71.40 [facility] [address] [place] [phone] 06/05/2024 Mark Combs [facility] [address] [place] [phone] 08/26/2024 Mark Combs Assessments Encounter Date Diagnosis [...] Start Date Coverage End Date MEDIC[place] OF [place] [address] [place] [id number] JUAN ARANGO Self - patient is the insured [facility] [address] [place] [phone] [id number] JUAN ARANGO Self - patient is the insured Medical (General) History Medical History History ICD Code Heart attack 09/11/2015--2 st ents--at [facility]--fine since then--sees Dr. Francisco at [facility] Arthritis in spine Abdominal aortic aneurysm Negative colonoscopy > 10 yr s ago at [facility] for evaluation of rectal bleeding--he describes the finding of hemorrhoids Denies DM,CVA,Lung disease,renal disease Gallstones-asymptomatic Colonoscopy 10/2016--2 tubular adenomas r emoved EGD in 07/2018--erosive gastr itis, bx neg for Hpylori; AVM's nonbleeding; no esophagitis Surgical History Surgery Date(Month/Year) Cervical spondylosis 1998 Appendectomy 1964 Cataract surgery bilateral
--- OUTSIDE RECORDS SUMMARY | 2025-03-12 09:42 | XMS_ITS | Clinical Summary ---
Author Organization [facility] Address [address] [place] [phone] Phone Care Team Providers Care Nurse Auditor Name Role Phone Bhanu Gamino Palak MCKEON Primary Care Provider [phone] Allergies Active Allergy Reactions Criticality Noted Date [...] Problem Noted Date Diagnosed Date CAD in [place] artery 11/20/2024 Abdominal aortic aneurysm (A AA) without rupture (CMS/HCC V24) 11/20/2024 Chronic gastritis without bleeding 11/20/2024 Diarrhea 11/20/2024 Gallstones 11/20/2024 Gastric and duodenal angiodysplasia 11/20/2024 Gastroesophageal reflux disease 11/20/2024 History of adenomatous polyp of colon 11/20/2024 Hypercholesteremia 11/20/2024 Acute myocardial infarction ([facility] V24, [facility] V28) 11/20/2024 Other somatoform disorders 11/20/2024 Surgical History Surgery Date Site/Laterality Comments AAA REPAIR APPENDECTOMY CARDIAC SURGERY Medical History Medical History Date Comments AAA (abdominal aortic aneurysm) [place] [place]) CAD (coronary artery disease) Gastritis [place] (myocardial infarction) ([facility] [place], [facility] [place]28) Lung cancer ([facility] [place], [facility] V28) Cervical spondylolysis Family History Medical History [...] Insurance MEDICARE MEDICAID - [place] Care Teams Nurse Auditor Relationship Specialty Start Date End Date Bhanu Gamino FNP [address] [place] [address] PCP - General Family Medicine 11/20/24
== END 2025-03-12 10:20 | disposition home or self-care (01) ==
LOC: HO.HMCH 08:41
DX: Z13.9 Encounter for screening, unspecified (principal)

== ENCOUNTER → 2025-03-12 08:41 | Outpatient (BNVA) | payer MEDICARE, MEDICAID, SELFPAY | PROVIDERS: PCP Internal Medicine | DX: R10.13 Epigastric pain (principal); D72.819 Decreased white blood cell count, unspecified; J43.9 Emphysema, unspecified; K59.00 Constipation, unspecified; R19.7 Diarrhea, unspecified; C34.92 Malignant neoplasm of unspecified part of left bronchus or lung; D64.9 Anemia, unspecified; K21.9 Gastro-esophageal reflux disease without esophagitis; E78.00 Pure hypercholesterolemia, unspecified; I10 Essential (primary) hypertension; G25.81 Restless legs syndrome; R73.01 Impaired fasting glucose; E55.9 Vitamin D deficiency, unspecified; Z87.891 Personal history of nicotine dependence | CPT/HCPCS: 83036; 96127; 99212 ==

== ENCOUNTER 2025-05-03 11:09 | Outpatient (AMB) | payer MEDICARE, MEDICAID, SELFPAY ==
--- NOTE | 2025-05-03 11:11 | MHC.OFFVIS ---
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 He was initially referred by PCP after recent abnormal chest CT 09/09/24 which revealed 5.5 cm x 6.6 cm x 4.1cm left lower lung mass. PET 09/14/24 revealed FDG activity left lung mass, SUV 7.8 as well as left hilar lymphadenopathy, SUV max 5.8. On 10/10/[address] Chin pathology consistent with metastatic lung non-small cell carcinoma. He has received 8 cycles of chemotherapy/immunotherapy, under the care of Dr. Becker and is followed by [facility], Dr. Smith, having a brain MRI last week and an appointment to review results towards the end of June. Last brain MRI did reveal response to chem with both lesions decreasing in size, therefore holding off on whole brain radiation at this time. Since the last visit he did undergo chest CT 02/27/2025 which demonstrated overall slight decreased size and density of the lobulated lesion/mass left lower lung lobe and nearly resolved lymphadenopathy, left perihilar. Patient continues to have a positive outlook and support system in place. He continues to be active walking multiple times per week without any notable respiratory symptoms. He has a prescription for Breo and Albuterol MDI however does not feel the dyspnea he experiences occasionally warrants medication at this time. He denies cough, hemoptysis, wheezing or chest tightness. [facility] Medical History HTN (hypertension) GERD (gastroesophageal reflux disease) Emphysema, unspecified Wears dentures Arthritis AAA (abdominal aortic aneurysm) Myocardial infarction Elevated cholesterol CAD (coronary artery disease) Surgical History History of AAA (abdominal aortic aneurysm) repair (09/28/24) History of esophagogastroduodenoscopy (EGD) H/O colonoscopy Hx of heart artery stent History of cataract surgery History of ear surgery History of neck surgery History of appendectomy Family History Other Substance use disorder Social History (Reviewed 05/03/25 @ 11:14 by Amalia Gr [facility]) Household Members: None Housing: Apartment Are you a primary critical care nurse specialist to a significant other at home: No Do you presently have visiting nurse or other home services: No Alcohol intake: current Alcohol intake frequency: holidays/special occasions only Alcohol type: wine Patient Tobacco Use Status: Former Tobacco user Tobacco use type: Cigarette Cigarette Packs Per Day: 1.5 Years Smoked: 45 e-Cigarette/Vaping Use: Never Used Second Hand Smoke Exposure: No Substance Use Type: Marijuana service: Yes Current occupational status: retired Current occupational exposures/hazards: No Cognitive needs: No Hearing needs: No Vision needs: No Review of Systems Const Denies chills, Denies excessive sweating, Denies fever(s) and Denies night sweats Eyes Denies dry eyes, Denies irritation and Denies itchy eyes ENT Reports Normal hearing present, Denies nasal congestion, Denies nasal discharge, Denies post nasal drip and Denies sore throat Card Denies chest pain, Denies chest pain at rest, Denies chest pain with activity, Denies claudication, Denies leg edema, Denies orthopnea and Denies paroxysmal nocturnal dyspnea Resp Denies change in phlegm color, Denies chest congestion, Denies cough, Denies hemoptysis, Denies excessive phlegm production, Denies pain on inspiration, Denies pain with cough, Denies stridor and Denies wheezing Neuro Reports Normal hearing present Endo Denies excessive sweating Aller/Immun Denies itchy eyes, Denies seasonal rhinorrhea and Denies wheezing Physical Exam Vital Signs: Last Vital Signs Pulse 64 05/03/25 11:12 BP 132/66 05/03/25 11:12 Pulse Ox 98 05/03/25 11:12 Oxygen Delivery Method Room Air 05/03/25 11:12 BMI result Body Mass Index 27.4 Const General: cooperative, comfortable, no acute distress and alert Orientation/consciousness: patient oriented x3 Limitations: no limitations HEENT Head: Yes normal to inspection, Yes normocephalic and Yes atraumatic Ears: hearing grossly normal bilaterally and external ears normal Eyes General: appearance normal, both eyes and all related structures Eyelids: Yes eyelids normal Sclerae: sclerae normal EOM: EOMs intact bilaterally Neck Neck: Yes normal visual inspection and Yes no lymphadenopathy Lymphatic: no lymphadenopathy noted Chest Chest palpation & inspection: normal inspection of the chest Resp Effort & Inspection: normal respiratory effort, able to speak in complete sentences, no audible wheezes, no cough, no stridor, not tachypneic, no tripod positioning and no use of accessory muscles Auscultation: diminished lung sounds Cardio Jugular venous distension: no JVD Rate: regular rate Rhythm: regular rhythm Skin Other: warm, dry General skin exam: no rashes or lesions noted Neuro General: patient oriented x3 Cranial nerves: Yes Normal hearing present Cognition (Neuro): normal cognition Gait exam (Neuro): Normal gait present Extrem General: Yes normal to inspection, Yes capillary refill normal, Yes no clubbing, cyanosis or edema and Yes no pedal edema Psych Appearance: grossly normal and well kempt Speech and movement: Normal speech and movement present and Clear speech present Affect: normal affect Attitude: cooperative Thought process: Normal thought process present Thought content: Normal thought content present Insight: Good insight present (Psych) Judgement: Good judgement present (Psych) Results Reviewed Results Reviewed: [place] [address] CT Scan Report Signed Patient: Juan Arango MR#: [id number] : 1955 Acct:[id number] Age/Sex: 70 / M ADM Date: 02/27/25 Loc: HO.CT Attending Dr: Rosalio Becker MD Ordering Physician: Rosalio Becker MD Date of Service: 02/27/25 Procedure(s): CT chest w IV con Accession Number(s): [id number] cc: Rosalio Becker MD; Physician,Unknown ~ Report Number: [id number]: Total DLP = 174.00 mGy-cm Reason for Exam: F/U on Non small cell of lung EXAMINATION: CT CHEST WITH CONTRAST CLINICAL INFORMATION: Follow-up non-small cell lung. COMPARISON: August 29, 2024. TECHNIQUE: Multidetector volumetric CT imaging of the chest was obtained after the administration of 65 mL of Omnipaque 350 intravenous contrast without immediate adverse reactions. Axial MIP volume rendering provided. Sagittal and coronal reformatted images were obtained. This CT examination was performed using dose optimization techniques as appropriate, variously including the following: *Automated exposure control *Adjustment of mA and/or kV according to patient size (this includes techniques or standardized protocols for targeted exams where dose is matched to indication/reason for exam; i.e. extremities or head) *Use of iterative reconstruction technique DLP: 174 mGy centimeter. FINDINGS: MATERIAL PLANNER: Lobulated opacity left lower hemithorax. No hyperinflation. Cardiomediastinal silhouette size is normal. Metallic stenting, abdominal aorta. Metallic plate in the lower cervical spine likely anterior cervical fusion. LUNGS: There is a lobulated, 43 x 70 x 38 mm low density mass in the anterior left lower lung lobe abutting the major fissure. There is lesion measures 16 Hounsfield units. There are few satellite less than 10 mm lobulated nodules. Paraseptal and centrilobular emphysematous changes. Apical lung scarring, bilaterally. Patchy pulmonary groundglass, left upper lung lobe and right middle lung lobe. MEDIASTINUM: There is an 8 mm lobulated low density in the left pulmonary hilum. There is a 21 mm fluid density in the subcarinal/left mainstem bronchus. There is a 6 mm right pretracheal and periaortic lymph nodes. No aneurysm or dissection, thoracic aorta. Calcified plaques in the coronary arteries. Trace of pericardial effusion. No pneumomediastinum. The heart is not enlarged. No hemopericardium. The thyroid gland is not enlarged with the multifocal less than 6 mm low density nodules likely colloidal cysts. PLEURA: No pleural effusion. No pneumothorax. No calcified pleural plaques. No hemothorax. AXILLA: No lymphadenopathy. UPPER ABDOMEN: Decreased enhancement of the liver. There is a 14 mm heterogeneous enhancing lesion in the periphery of the right hepatic lobe. Low density nodular lesions within the lumen of the contracted gallbladder. There is a stent within the suprarenal and infrarenal abdominal aorta with stents in both main renal arteries. The infrarenal abdominal aorta diameter measures 48 mm with an anterior compression shaped low density plaque. Small accessory spleen. There is a 20 mm low-density nodule measuring 14 Hounsfield units centered in the right adrenal gland. Small gas-filled diverticulum, second portion of the duodenum. . OSSEOUS STRUCTURES: Multilevel spondylosis without acute fracture or listhesis. Status post anterior cervical fusion C5-6 no fully included in the [id number]-da-bdqa. No gross lytic or blastic lesions CT/CT chest w IV con IMPRESSION: Overall slight decreased size and density of the lobulated lesion/mass left lower lung lobe and nearly resolved lymphadenopathy, left perihilar. Overall improved since prior exam Additional findings are stable.. Fleischner guidelines were followed. Electronically signed by: Ivan Robles MD 02/27/2025 08:50 AM EDT RP Dictated By: Ivan Rose MD Signed By: <Electronically signed by Ivan Marley MD in OV> 02/27/25 0850 DD/ 9 TD/TT: 02/27/25823 Drinking Water Technician: Assessment & Plan Assessment & Plan (1) Non-small cell cancer of left lung: Code(s): C34.92 - Malignant neoplasm of unspecified part of left bronchus or lung Category: Medical (2) Lung mass: Code(s): R91.8 - Other nonspecific abnormal finding of lung field Category: Medical (3) COPD (chronic obstructive pulmonary disease): Code(s): J44.9 - Chronic obstructive pulmonary disease, unspecified Category: Medical Qualifiers: COPD type: emphysema Emphysema type: unspecified Qualified Code(s): J43.9 - Emphysema, unspecified (4) Personal history of tobacco use: Code(s): Z87.891 - Personal history of nicotine dependence Category: Social Hx Plan At this time Juan reports intermittent dyspnea with moderate exertion, however does not feel symptoms warrant medication. He does have Breo and Albuterol at home if symptoms become more persistent. Otherwise denies any hemoptysis, cough or wheezing. He is aware to call if symptoms change. He continues to monitor oxygen saturation at home never below 96%. He is following closely with Dr. Becker and Dr. Smith to monitor response to chemo-immunotherapy regimen, most recent chest CT 02/2025 did demonstrate slight decrease in overall size of LLL mass as well as lymphadenopathy. Will attempt to obtain records from [facility] from most recent brain MRI as well as plan with [facility]. All questions were answered and patient is in agreement of plan. Will follow up in 3 months or sooner if needed. Coding Level of Care Code Est Pt Level 4 (03707) Diagnoses Non-small cell cancer of left lung C34.92 Lung mass R91.8 Pulmonary emphysema, unspecified emphysema type J43.9 COPD type: emphysema Emphysema type: unspecified Personal history of tobacco use Z87.891
[2025-05-03 11:12] VITALS: BP 132/66; PULSE 64; O2SAT 98; BMI 27.4
--- OUTSIDE RECORDS SUMMARY | 2025-05-03 16:56 | XMS_ITS | Clinical Summary ---
Author Organization [facility] Address [address] [place] [address] Phone Care Team Providers Care Head Animal Trainer Name Role Phone Bhanu Gamino Palak MCKEON Primary Care Provider [phone] Allergies Active Allergy Reactions Criticality Noted Date [...] Problem Noted Date Diagnosed Date CAD in [place] artery 11/20/2024 Abdominal aortic aneurysm (A AA) without rupture (CMS/HCC V24) 11/20/2024 Chronic gastritis without bleeding 11/20/2024 Diarrhea 11/20/2024 Gallstones 11/20/2024 Gastric and duodenal angiodysplasia 11/20/2024 Gastroesophageal reflux disease 11/20/2024 History of adenomatous polyp of colon 11/20/2024 Hypercholesteremia 11/20/2024 Acute myocardial infarction ([facility] V24, [facility] V28) 11/20/2024 Other somatoform disorders 11/20/2024 Surgical History Surgery Date Site/Laterality Comments AAA REPAIR APPENDECTOMY CARDIAC SURGERY Medical History Medical History Date Comments AAA (abdominal aortic aneurysm) ([facility] V24) CAD (coronary artery disease) Gastritis [place] (myocardial infarction) ([facility] V24, [facility] V28) Lung cancer ([facility] V24, [facility] V28) Cervical spondylolysis Family History Medical History [...] Health Maintenance Due Date Last Done Comments Colorectal Cancer Screening: Colonoscopy 1955 Pneumococcal Vaccine: 50+ Years (1 of 2 - PCV) 02/01/1975 RSV Immunization Adult Patients (1 - Risk 50-74 years 1-dose series) 02/01/2006 Depression Screening 06/20/2024 Cholesterol Screening (Lipid Panel) 09/14/2024 Falls Risk Assessment 09/14/2024 Hepatitis C Screening 09/14/2024 Medicare Annual Wellness Visit 09/14/2024 Social Influencers of Health Screening 09/14/2024 Hypertension/CHF/CAD Annual BMP Blood Test 11/20/2024 COVID-19 Vaccine ( season) 2025 09/08/2024, 06/25/2023, 05/27/2022, Additional history exists Influenza Vaccine (#1) 2025 , 06/25/2023, 05/27/2022 DTaP,Tdap,and Td Vaccines (2 - Td or [...] Insurance MEDICARE MEDICAID - [place] Care Teams Head Animal Trainer Relationship Specialty Start Date End Date Bhanu Gamino FNP [address] [place] [address] PCP - General Family Medicine 11/20/24
== END 2025-05-03 12:03 | disposition home or self-care (01) ==
LOC: HO.HPSW 11:10
PROVIDERS: PCP Internal Medicine; Visit Provider Nurse Practitioner Family
DX: C34.92 Malignant neoplasm of unspecified part of left bronchus or lung (principal); R91.8 Other nonspecific abnormal finding of lung field; J43.9 Emphysema, unspecified; Z87.891 Personal history of nicotine dependence
CPT/HCPCS: 99214

== ENCOUNTER → 2025-05-03 11:09 | Outpatient (BNVA) | payer MEDICARE, MEDICAID, SELFPAY | PROVIDERS: PCP Internal Medicine; Visit Provider Nurse Practitioner Family | DX: C34.92 Malignant neoplasm of unspecified part of left bronchus or lung (principal); R91.8 Other nonspecific abnormal finding of lung field; J43.9 Emphysema, unspecified; Z87.891 Personal history of nicotine dependence; Z79.899 Other long term (current) drug therapy | CPT/HCPCS: 99212 ==

== ENCOUNTER 2025-06-11 08:31 | Outpatient (AMB) | payer MEDICARE, MEDICAID, SELFPAY ==
--- OUTSIDE RECORDS SUMMARY | 2025-06-11 08:43 | XMS_ITS | Patient Health Record ---
Author Organization [facility] Address [address] [place] [address] Care Team Providers Care Assembler Surgical Garment Name Role Phone Caitlin AUSTIN, [place] Primary Care Provider Mark Vinson Unavailable [phone] Allergies Allergen (clinical drug ingredient) Drug/Non Drug Allergy documented on EMR Reaction Allergy Type Onset Date Status atorvastatin Atorvastatin Calcium muscle pain Drug Allergy Active Reason For Referral No Information Medications Medication SIG (Take, Route, Frequency, Duration) Notes Start Date End Date Status Omeprazole 20 MG Capsule Delayed Release TAKE 1 CAPSULE BY MOUTH EVERY MORNING; Duration: 30 Active Aspir-81 81 MG Tablet Delayed Release 1 tablet Orally Once a day Active Metoprolol & Diet Manage Prod 25 mg tablet 1 tablet orally once a day Active Immunizations Vaccine Route Administration Date Status Comme nts Influenza Unknown 07/13/2018 Refused Social History Social History Drugs/Alcohol: Social Info Question Answer Notes Alcohol Screen Did you have a drink containing alcohol in the past year? No Points 0 Interpretation Negative Additional Details Category Social Info Options Details Miscellaneous: Marital status: Single Occupation: Retired Section Notes: Stopped smoking 08/2015; no s ig alcohol Stopped smoking 08/2015; no s ig alcohol Stopped smoking 08/2015; no s ig alcohol Stopped smoking 08/2015; no s ig alcohol Stopped smoking 08/2015; no s ig alcohol Problems Problem Type SNOMED Code ICD Code Onset Dates Problem Status W/U Status Risk Notes Problem Screening for malignant neoplasm of colon (695984697) Encounter for screening for malignant neoplasm of colon (Z12.11) Active confirmed Problem History of adenomatous polyp of colon (940702214) History of adenomatous polyp of colon (Z86.010) Active confirmed Problem Diarrhea (43403746) Diarrhea (R19.7) Active con firmed Problem Screening for malignant neoplasm of rectum (269952873) Encounter for screening for malignant neoplasm of rectum (Z12.12) Active confirmed Problem Gallstones (781135686) Gallstones (K80.20) Active confirmed Problem Long-term current use of antiplatelet drug (421330608245615) Long-term use of aspirin therapy (Z79.82) Active confirmed Problem Angiodysplasia of duodenum (585759577) 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) Active confirmed Problem Gastroesophageal reflux disease (777915603) GERD without esophagitis (K21.9) Active confirmed Problem Atrophic gastritis (69045966) Chronic gastritis without bleeding, unspecified gastritis type (K29.50) Active confirmed Problem Globus sensation (983605383) Globus sensation (F45.8) Active confirmed Problem Globus pharyngeus (654595024) Globus pharyngeus (F45.8) Active confirmed Problem Abdominal aortic aneurysm without rupture (disorder) (52244126) Abdominal aortic aneurysm, without rupture, unspecified (I71.40) Active confirmed Problem Gastroesophageal reflux disease (disorder) (955470902) Chronic GERD (K21.9) Active confirmed Encounters Encounter Location Date Provider Diagnosis [facility] [address] [place] [address] 08/26/2024 Mark Combs Plan Of Treatment Pending Test Test Name Order Date US ABD AORTA 06/05/2024 US abdominal aortic aneurysm 06/05/2024 Future Test Test Name Order Date COLONOSCOPY 06/01/2016 UPPER GI ENDOSCOPY 07/13/2018 COLONOSCOPY 02/23/2024 UPPER GI ENDOSCOPY 05/31/2024 Insurance Providers Payer Name Payer Address Payer Phone Subscriber Number Group Number Insured Name Patient Relationship to Insured Coverage Start Date Coverage End Date MEDICARE OF [place] [address] [place] [address] [id number] LEONID DON Self - patient is the insured [facility] [address] [place] [address] [id number] LEONID DON Self - patient is the insured Medical (General) History Medical History History ICD Code Heart attack 09/11/2015--2 st ents--at [facility]--fine since then--sees Dr. Francisco at [facility] Arthritis in spine Abdominal aortic aneurysm Negative colonoscopy > 10 yr s ago at [facility] for evaluation of rectal bleeding--he describes the finding of hemorrhoids Denies DM,CVA,Lung disease,renal disease Gallstones-asymptomatic Colonoscopy 10/2016--2 tubular adenomas r emoved EGD in 07/2018--erosive gastr itis, bx neg for Hpylori; AVM's nonbleeding; no esophagitis Surgical History Surgery Date(Month/Year) Cervical spondylosis 1998 Appendectomy 1963 Cataract surgery bilateral
--- OUTSIDE RECORDS SUMMARY | 2025-06-11 08:43 | XMS_ITS | Clinical Summary ---
Author Organization [facility] Address [address] [place] [address] Phone Care Team Providers Care Bookseamer Blindstitch Name Role Phone Bhanu Gamino Palak MCKEON Primary Care Provider [phone] Allergies Active Allergy Reactions Criticality Noted Date [...] Problem Noted Date Diagnosed Date CAD in [place] artery 11/20/2024 Abdominal aortic aneurysm (AAA) without rupture 11/20/2024 Chronic gastritis without bleeding 11/20/2024 Diarrhea 11/20/2024 Gallstones 11/20/2024 Gastric and duodenal angiodysplasia 11/20/2024 Gastroesophageal reflux disease 11/20/2024 History of adenomatous polyp of colon 11/20/2024 Hypercholesteremia 11/20/2024 Acute myocardial infarction 11/20/2024 Other somatoform disorders 11/20/2024 Surgical History Surgery Date Site/Laterality Comments AAA REPAIR APPENDECTOMY CARDIAC SURGERY Medical History Medical History Date Comments AAA (abdominal aortic aneurysm) ([facility] V24) CAD (coronary artery disease) Gastritis [place] (myocardial infarction) ([facility] V24, [facility] V28) Lung cancer ([facility] V24, [facility] V28) Cervical spondylolysis Family History Medical History [...] file Not on file Not on file Last Filed Vital Signs Vital Sign Reading [...] Insurance MEDICARE MEDICAID - [place] Care Teams Bookseamer Blindstitch Relationship Specialty Start Date End Date Bhanu Gamino FNP [address] [place] [address] PCP - General Family Medicine 11/20/24
--- NOTE | 2025-06-11 08:47 | MHC.PC.OV ---
Vital Signs 06/11/25 08:51 Height 5 ft 8 in Weight 179 lb 6 oz BMI 27.3 BP 136/68 Blood Pressure Location Lt brachial Position Sitting Pulse 61 Pulse Source Pulse Oximeter Temp 96.8 F Temp Source Temporal Artery Scan Pulse Oximetry (%) 97 Oxygen Delivery Method Room Air Intake Visit Reasons: dm/htn/lung ca/cad Intake Note: Patient is here to follow up on DM, HTN, Lung CA, CAD Poultry Offal Icer Required: No Carbon Paper Machine Operator: Not Required per policy Accompanied by: Self / Same As Patient Allergies Irjqyjr-SJS-LfJ Reductase Inhibitor (ZDHXNUT-NOK-RKY REDUCTASE INHIBITOR) Allergy (Mild, Verified 06/11/25 09:04) Muscle Pain metformin Adverse Reaction (Intermediate, Verified 06/11/25 09:04) Diarrhea Medication List - Last Reconciled 06/11/25 by HELEN Braden albuterol sulfate 90 mcg/actuation 2 puffs inhalation Q4-6H PRN aspirin 81 mg PO DAILY Breo Ellipta 200-25 mcg/dose (fluticasone furoate-vilanterol) 1 inh inhalation DAILY NS cholecalciferol (vitamin D3) (Vitamin D3) 50 mcg PO DAILY dexamethasone 4 mg PO BID folic acid 1 mg PO DAILY gabapentin 300 mg PO BEDTIME metformin ER (Glucophage XR) 500 mg PO BID metoprolol succinate ER 50 mg PO DAILY omeprazole 20 mg PO Q OTHER DAY ondansetron 8 mg PO Q8H sildenafil (Viagra) 50 mg PO DAILY PRN Tobacco use date assessed: 06/11/25 Fall risk assessment: No Falls in past year Last assessed Fall Risk: 06/11/25 Dental Screening Dental Screen Date: 03/12/25 HPI HPI Comments History of Present Illness Details The patient is a 70 year old male presenting for follow-up and management of his chronic conditions. He has a diagnosis of type 2 diabetes and reports difficulty tolerating metformin XR due to loose bowel movements and diarrhea, which has led him to start and stop the medication four times. He avoids taking it when he has chemotherapy to prevent diarrhea during treatment. Regarding his diabetes management, his hemoglobin A1c has improved, decreasing from 7.7% to 6.9%. He attributes this improvement to dietary changes, such as reducing his coffee intake from four to two cups per day with less sugar, and focusing his fluid intake on water and low-sugar tomato juice. The patient is currently undergoing chemotherapy and reports associated side effects including altered taste, a runny nose with every meal, and persistent tiredness since January. His recent lab work, performed for his chemo treatments, showed slightly elevated liver enzymes. He denies taking any [id number]-xbblkeq medications like Tylenol and mentions having one alcoholic drink for the first time in 3-4 years, which occurred on a chemotherapy day. His medical history is also significant for gout, infrequent heartburn over the past year despite taking omeprazole, and a history of hearing problems since childhood requiring tubes. He has undergone cataract surgery but has not had a follow-up with an belly packer and notes increased watering of his eyes. Health Maintenance The patient reports increased lacrimation and has not seen an belly packer since his cataract surgery; a referral will be considered at a future visit. He has an upcoming appointment with his grinding supervisor on August 09. A follow-up visit is scheduled for three months to review his progress and lab results. Social History - Alcohol Use: Reports having one alcoholic beverage recently, which was his first in 3-4 years. - Caffeine Intake: He has reduced his coffee consumption from four cups per day to two. - Diet: He primarily drinks water, sometimes flavored, and occasionally drinks tomato juice as a low-sugar option. Results - Labs - Hemoglobin A1c: 6.9% (previously 7.7%). - Liver enzymes: Slightly elevated. - Thyroid function: Normal. - Cholesterol panel: Not performed with recent labs. [facility] Medical History HTN (hypertension) GERD (gastroesophageal reflux disease) Emphysema, unspecified Wears dentures Arthritis AAA (abdominal aortic aneurysm) Myocardial infarction Elevated cholesterol CAD (coronary artery disease) Surgical History History of AAA (abdominal aortic aneurysm) repair (09/28/24) History of esophagogastroduodenoscopy (EGD) H/O colonoscopy Hx of heart artery stent History of cataract surgery History of ear surgery History of neck surgery History of appendectomy Family History Other Substance use disorder Social History Household Members: None Housing: Apartment Are you a primary director medicare sales to a significant other at home: No Do you presently have visiting nurse or other home services: No Alcohol intake: current Alcohol intake frequency: holidays/special occasions only Alcohol type: wine Patient Tobacco Use Status: Former Tobacco user Tobacco use type: Cigarette Cigarette Packs Per Day: 1.5 Years Smoked: 45 e-Cigarette/Vaping Use: Never Used Second Hand Smoke Exposure: Yes Substance Use Type: Marijuana service: Yes Current occupational status: retired Current occupational exposures/hazards: No Cognitive needs: No Hearing needs: No Vision needs: No Questionnaire PHQ-9 Over the last 2 weeks, how often have you been bothered by any of the following problems? Depression Screening Interpretation: Positive Depression Screening Done: Yes Source: Developed by Drs. Mark Castaneda, Monica Morrissey, Wong Valverde and colleagues, with an educational john from [employer]. Thrive Questionnaire Date Thrive assessed: 11/07/24 I am a: Patient What is your living situation today?: I have a steady place to live Within the past 12 months, did the food you bought not last and you didn't have the money to get more?: Never true Within the past 12 months, did you worry whether your food would run out before you got money to buy more?: Never true Do you have trouble paying for medicines?: No Do you have trouble getting transportation to medical appointments?: I choose not to answer this question Do you have trouble paying your heating and electricity bill?: No Do you have trouble taking care of your child, family member or friend?: No Do you have trouble with day-to-day activities such as bathing, preparing meals, shopping, managing finances, etc.?: No Are you currently unemployed and looking for a job?: No Are you interested in more education?: No Currently or been in a relationship where the following occur: No concerns reported THRIVE Score: 0 RODRIGUE-7 AMB Questionnaire RODRIGUE-7 Date RODRIGUE - 7 assessed: 11/07/24 Source: Developed by Drs. Mark Castaneda, Monica Morrissey, Wong Valverde and colleagues, with an educational john from [employer]. Review of Systems Narrative Review of Systems - Constitutional: Reports persistent tiredness since January. - Eyes: Reports increased lacrimation. - Ears: Reports a history of hearing problems. - Nose/Throat: Reports rhinorrhea with every meal and altered taste. - Gastrointestinal: Reports intermittent loose bowel movements and diarrhea associated with metformin XR use. - Reports rare episodes of heartburn, about two to three times in the past year. - Musculoskeletal: Reports a recent episode of gout. Const Reports difficulty sleeping, Reports fatigue and Denies headache(s) Eyes Denies loss of vision and Reports other (increased tearing post-cataract surgery) ENT Denies vertigo, Denies dizziness, Denies headache(s) and Denies sore throat Card Denies chest pain, Denies leg edema, Denies lightheadedness and Reports dyspnea Resp Denies cough, Denies hemoptysis, Reports dyspnea and Denies wheezing GI Denies abdominal pain, Denies melena, Reports constipation, Reports diarrhea, Reports nausea and Denies vomiting Denies dysuria, Denies urinary frequency and Denies urinary urgency Musc Denies arthralgias, Denies joint swelling, Denies numbness and Denies tingling Neuro Denies Abnormal speech present, Denies behavioral changes, Denies vertigo, Denies dizziness, Denies headache(s), Denies loss of vision, Denies memory loss, Denies numbness and Denies tingling Psych Denies anxiety, Denies behavioral changes, Denies depression, Denies memory loss and Denies panic attacks Endo Reports fatigue Rush/Lymph Denies easy bleeding and Denies easy bruising Aller/Immun Denies wheezing Physical exam (Primary Care) Vital Signs: Last Vital Signs Temp 96.8 F 06/11/25 08:51 Pulse 61 06/11/25 08:51 BP 136/68 06/11/25 08:51 Pulse Ox 97 06/11/25 08:51 Oxygen Delivery Method Room Air 06/11/25 08:51 BMI result Body Mass Index 27.3 Tobacco/Smoking Status: Tobacco use Status Tobacco use date assessed 06/11/25 06/11/25 08:57 Patient Tobacco Use Status Former Tobacco user 06/11/25 08:48 Tobacco use type Cigarette 06/11/25 08:48 e-Cigarette/Vaping Use Never Used 06/11/25 08:48 Depression Screening Interpretation: Positive Thrive Assessment: Date of Thrive Assessment Date Thrive assessed 11/07/24 06/11/25 08:48 Currently or been in a relationship where the following occur: No concerns reported Narrative Physical Exam - Vitals: Blood pressure is 136/68 mmHg. - Cardiovascular: Auscultation revealed normal findings. - Lungs: Auscultation revealed normal findings. Const General: healthy appearing, no acute distress, alert and awake Nutritional Appearance: well nourished Orientation/consciousness: oriented to person, oriented to place and oriented to time HENMT Ears: TM's normal bilaterally General nose exam: Normal nasal mucous membranes and turbinates present Eyes Conjunctivae: conjunctivae normal Sclerae: sclerae normal Pupils: Equal, round and reactive pupils present Neck Neck: Yes no lymphadenopathy and Yes no JVD Thyroid: Thyroid normal Carotids: no bruits Resp Effort & Inspection: normal respiratory effort and not tachypneic Auscultation: no crackles, no rales, no rhonchi and no wheezes Cardio Rate: regular rate Rhythm: regular rhythm Heart sounds: no murmurs and normal S1 and S2 GI Palpation (GI): Soft to palpation, nontender, no hepatomegaly and no splenomegaly Auscultation: normal bowel sounds General: Yes no CVA tenderness Back/Spine/Pelvis Back: no CVA tenderness Skin General skin exam: no rashes or lesions noted and dry skin Neuro General: oriented to person, oriented to place and oriented to time Cranial nerves: Yes Equal, round and reactive pupils present Speech: No Abnormal speech present Gait exam (Neuro): Normal gait present Motor exam (neuro): no tremor noted Extrem Right upper extremity: full ROM Left upper extremity: full ROM Right lower extremity: full ROM; no edema Left lower extremity: full ROM; no edema Psych Mental Status: mental status grossly normal Speech and movement: Normal speech and movement present Affect: normal affect Attitude: cooperative Thought process: Normal thought process present Results AMB Hemoglobin A1c AMB Hemoglobin A1c 6.9 % Last Edit by VARGAS Zepeda on 06/11/25 09:03 Results Reviewed Results Reviewed: Laboratory Last Values Hgb A1c (Clinic) 6.9 % (4.0-6.0) H 06/11/25 08:47 Coding Level of Care Code Est Pt Level 4 (50403) Diagnoses Epigastric pain R10.13 Abdominal location: epigastric Non-small cell cancer of left lung C34.92 Laterality: left Anemia, unspecified type D64.9 Anemia type: unspecified type Pulmonary emphysema, unspecified emphysema type J43.9 COPD type: emphysema Emphysema type: unspecified Chronic GERD K21.9 Hypertension, unspecified type I10 Hypertension type: unspecified Elevated cholesterol E78.00 Restless legs syndrome G25.81 Vitamin D deficiency E55.9 Leukopenia, unspecified type D72.819 Leukopenia type: unspecified Type 2 diabetes mellitus with hyperglycemia, without long-term current use of insulin E11.65 Diabetes mellitus complication status: with hyperglycemia Diabetes mellitus vermin exterminator insulin use: without custodial use Diabetes mellitus type: type 2 Elevated liver enzymes R74.8 Time Spent (min) 37 Assessment & Plan Assessment & Plan (1) Abdominal pain: Code(s): R10.9 - Unspecified abdominal pain Category: Medical Qualifiers: Abdominal location: epigastric Qualified Code(s): R10.13 - Epigastric pain Plan: Reports intermittent abdominal pain close to epigastric region. The patient had recent AAA surgery 09/28/2024, also has history of GERD, which might be causing this discomfort intermittently as well. Encouraged to take omeprazole 20 mg daily. The patient is only taking this every other day. (2) Non-small cell carcinoma of lung: Code(s): C34.90 - Malignant neoplasm of unspecified part of unspecified bronchus or lung Category: Medical Qualifiers: Laterality: left Qualified Code(s): C34.92 - Malignant neoplasm of unspecified part of left bronchus or lung Plan: The patient is undergoing chemotherapy for lung cancer. Management includes addressing symptoms such as nausea with ondansetron and monitoring for side effects like metallic taste and fatigue. Follow up with Oncology as scheduled. (3) Anemia: Code(s): D64.9 - Anemia, unspecified Category: Medical Qualifiers: Anemia type: unspecified type Qualified Code(s): D64.9 - Anemia, unspecified Plan: H&H is stable-Normocytic, normochromic anemia ongoing. The patient is under going chemotherapy treatment for lung cancer. We will continue to monitor. (4) COPD (chronic obstructive pulmonary disease): Code(s): J44.9 - Chronic obstructive pulmonary disease, unspecified Category: Medical Qualifiers: COPD type: emphysema Emphysema type: unspecified Qualified Code(s): J43.9 - Emphysema, unspecified Plan: Emphysema management involves monitoring respiratory symptoms and ensuring the patient has access to necessary medications. Continue Breo Ellipta 200-25 mcg/dose 1 inhalation daily Scheduled for PFT to assess severity Follow up with pulmonology as scheduled (5) Chronic GERD: Code(s): K21.9 - Gastro-esophageal reflux disease without esophagitis Category: Medical Plan: Reinforced dietary restrictions Encouraged omeprazole 20 mg daily; the patient is only taking this every other day (6) Hypertension: Code(s): I10 - Essential (primary) hypertension Category: Medical Qualifiers: Hypertension type: unspecified Qualified Code(s): I10 - Essential (primary) hypertension Plan: Blood pressure 136/68 mm Hg-systolic goal less than 130 mm hg Reinforced low-salt diet Continue metoprolol succinate ER 50 mg daily (7) Elevated cholesterol: Code(s): E78.00 - Pure hypercholesterolemia, unspecified Category: Medical Plan: Last LDL was 110, 11/07/24-does not completed follow up labs as yet, encouraged the patient to get this done kyle Reinforced low-cholesterol diet and activity as tolerated States that he stopped taking ezetimibe due to muscle cramps Will continue to monitor (8) Restless legs syndrome: Code(s): G25.81 - Restless legs syndrome Category: Medical Plan: Gabapentin 300mg at bedtime ordered (9) Vitamin D deficiency: Code(s): E55.9 - Vitamin D deficiency, unspecified Category: Medical Plan: Continue cholecalciferol 50 mcg daily (10) Leukopenia: Code(s): D72.819 - Decreased white blood cell count, unspecified Category: Medical Qualifiers: Leukopenia type: unspecified Qualified Code(s): D72.819 - Decreased white blood cell count, unspecified Plan: The plan for leukopenia includes monitoring the white blood cell count and avoiding fresh fruit to prevent further episodes. The patient should continue to avoid fresh fruit, as it may contribute to leukopenia, and follow up with regular blood tests to monitor the condition. (11) Diabetes: Code(s): E11.9 - Type 2 diabetes mellitus without complications Category: Medical Qualifiers: Diabetes mellitus complication status: with hyperglycemia Diabetes mellitus custodial insulin use: without vermin exterminator use Diabetes mellitus type: type 2 Qualified Code(s): E11.65 - Type 2 diabetes mellitus with hyperglycemia Plan: A1C 6.9% decreased from 7.7% -goal is A1c less than 7% Reinforced low sugar/carbohydrate diet and activity as tolerated Started to metformin XR 500 mg b.i.d. The patient requested a referral to endocrinology to gain more knowledge about managing his diabetes in the context of his chemotherapy, and I agreed to place this referral. I informed him that his recent labs did not include a cholesterol panel and instructed him to have fasting labs drawn today using the existing order. We will follow up in three months to review his progress. (12) Elevated liver enzymes: Code(s): R74.8 - Abnormal levels of other serum enzymes Category: Medical Plan: Recent labs show slightly elevated liver enzymes, which will continue to be monitored. The elevation is not critical, and potential contributing factors include chemotherapy. The patient was educated that symptoms of liver problems often do not manifest until the condition is severe. The patient admitting to being on vacation and having drink of alcohol. Will continue to monitor. Plan Plan Patient was informed and verbally consented to the use of an ambient scribe for clinic note documentation during this visit. 1. Type 2 Diabetes Mellitus The patient's hemoglobin A1c has shown improvement, decreasing from 7.7% to 6.9%. He experiences gastrointestinal side effects, specifically diarrhea, with metformin XR, and has been intermittently taking it. Given the positive trend in his A1c, he is advised to continue taking metformin as tolerated. A referral will be placed for an endocrinology consultation per the patient's request for additional education on managing his diabetes in conjunction with his ongoing chemotherapy. 2. Elevated Liver Enzymes Recent labs show slightly elevated liver enzymes, which will continue to be monitored. The elevation is not critical, and potential contributing factors include chemotherapy. The patient was educated that symptoms of liver problems often do not manifest until the condition is severe. 3. Hyperlipidemia A recent cholesterol panel was not obtained. An existing lab order will be used, and the patient will go for a fasting cholesterol test today. The results will be reviewed upon receipt. Discussion Notes I reviewed the patient's lab results with him, noting the improvement in his A1c from 7.7% to 6.9%. We discussed his difficulty tolerating metformin XR due to diarrhea, and I advised him that it is acceptable to continue taking it as tolerated, as this approach is proving effective. I explained that his liver enzymes are slightly elevated but not at a critical level, and we will continue to monitor them. The patient requested a referral to endocrinology to gain more knowledge about managing his diabetes in the context of his chemotherapy, and I agreed to place this referral. I informed him that his recent labs did not include a cholesterol panel and instructed him to have fasting labs drawn today using the existing order. We will follow up in three months to review his progress. Patient Instructions - Continue taking metformin as you can tolerate it. - It is okay to stop taking it if you develop diarrhea, especially before a chemotherapy session. - We will put in a referral for you to see a drug safety specialist (platform man) to get more information on managing your condition. - Please go to the lab to get your cholesterol levels checked. - This is a fasting test, meaning you should not eat before the blood draw. - Continue with your positive lifestyle changes, as they are working. - Schedule a follow-up appointment in three months. Orders: Orders AMB Hemoglobin A1c Today E11.9 - Type 2 diabetes mellitus without complications Referrals Endocrinology Referral E11.65 - Type 2 diabetes mellitus with hyperglycemia
[2025-06-11 08:51] VITALS: BP 136/68; PULSE 61; TEMP 36; O2SAT 97; BMI 27.3
== END 2025-06-11 09:30 | disposition home or self-care (01) ==
LOC: HO.HMCH 08:32
DX: R10.13 Epigastric pain (principal); C34.92 Malignant neoplasm of unspecified part of left bronchus or lung; D64.9 Anemia, unspecified; J43.9 Emphysema, unspecified; K21.9 Gastro-esophageal reflux disease without esophagitis; I10 Essential (primary) hypertension; E78.00 Pure hypercholesterolemia, unspecified; G25.81 Restless legs syndrome; E55.9 Vitamin D deficiency, unspecified; D72.819 Decreased white blood cell count, unspecified; E11.65 Type 2 diabetes mellitus with hyperglycemia; R74.8 Abnormal levels of other serum enzymes